=== PATIENT | female | born 1980 | race Caucasian/White ===

== ENCOUNTER → 2016-04-11 | Outpatient (REF) | payer OTHER ==
[~2016-04-11] MED LIST: /GLYB5TA PO; ASPI81TA85 PO; Aspirin Chewable PO; BABY81CH; CIPR500T89 PO; CLIN300C2 PO; GLUC1000; GLYB5TA PO; IBUP600T; INVO100T PO; KLON1TAB PO; KLON2TAB PO; LANTUS SOLOSTAR SC; LEVA750T; LISI2.5T; Lantus Insulin SC; NOVOLOG SC; No Historical Meds; ROSU10TA; VALI2TAB PO; YASMIN PO; [UNRECOGNIZED DRUG - REMARK]
== END | disposition home or self-care (01) ==
LOC: M SFHCWAGY 12:12
PROVIDERS: ATTEND Nurse Practitioner Family
DX: Z12.4 Encounter for screening for malignant neoplasm of cervix (principal); Z11.3 Encounter for screening for infections with a predominantly sexual mode of transmission
CPT/HCPCS: 87491; 87591; G0123

== ENCOUNTER → 2016-07-18 | Outpatient (CLI) | payer OTHER ==
--- NOTE | 2016-07-18 15:55 | REP ---
LEFT KNEE, FIVE VIEWS: HISTORY: Pain. There is no acute fracture or dislocation. The joint spaces are normal in appearance. IMPRESSION: There is no acute fracture or dislocation. Signed by Pranav Mason MD 07/18/2016 04:24 P
== END ==
LOC: M WUC 11:47
PROVIDERS: ATTEND Physician Assistant
DX: M25.562 Pain in left knee (principal)

== ENCOUNTER → 2017-01-02 | Outpatient (CLI) | payer OTHER ==
[~2017-01-02] MED LIST changes: +CIPR-249 PO; -CIPR500T89 PO
--- NOTE | 2017-01-02 13:29 | REP ---
Right wrist four views : There is no fracture or dislocation. Mineralization and joint spaces are normal. There are no calcifications or foreign bodies. Impression: Negative right wrist . Signed by Gus Padron MD 01/02/2017 01:21 P
== END ==
LOC: M RAD 12:23
PROVIDERS: ATTEND Physician Assistant Medical
DX: M25.531 Pain in right wrist (principal)

== ENCOUNTER 2017-02-06 18:58 | Emergency (ER) | payer OTHER ==
[~2017-02-06] VITALS: Ht 160 cm; Wt 104.5 kg
[2017-02-06 20:12] LABS: CONTROL LINE UCG INT CTR LINE PRESENT
[2017-02-06 21:06] LABS: BASO % 0.2 % (0.0-1.0); EOS # 0.1 10^3/uL (0.0-0.50); IMMATURE GRANULOCYTE % 0.3 % (0-0); LYMPH # 2.6 10^3/uL (1.5-4.5); LYMPH % 20.8 % (24.0-44.0); MEAN CORPUSCULAR HEMOGLOBIN 30.4 pg (27.0-33.0); MEAN CORPUSCULAR HGB CONC 33.1 g/dl (32.0-36.5); MEAN CORPUSCULAR VOLUME 91.9 fl (80.0-96.0); MONO # 0.9 10^3/uL (0.0-0.8); MONO % 7.2 % (0.0-5.0); NEUTROPHILS # 8.7 10^3/uL (1.8-7.7); NEUTROPHILS % 70.5 % (36.0-66.0); PLATELET COUNT, AUTOMATED 283 10^3/uL (150-450); RED CELL DISTRIBUTION WIDTH 12.4 % (11.5-14.5); WHITE BLOOD COUNT 12.4 10^3/uL (4.0-10.0)
--- NOTE | 2017-02-06 21:36 | REP ---
Clinical: Left flank pain. Comparison: 08/06/2013. Findings: Evaluation of the urinary tract system demonstrates normal bilateral kidneys, ureters and bladder. There is no perinephric stranding, hydroureteronephrosis, intrarenal or obstructing ureteral calculi identified. Liver, spleen, pancreas, gallbladder, and bilateral adrenal glands are normal for noncontrast evaluation. The enteric system is without obstruction or acute inflammatory process. Normal terminal ileum and appendix are identified in the right lower quadrant. Pelvis demonstrates normal bladder and age-appropriate uterus/adnexa. No pelvic fluid or ascites. No adenopathy. No solitary mass lesion identified. No free air. Abdominal aorta and vasculature appears normal and without aneurysm. Surrounding musculoskeletal structures are intact. Lung bases are well aerated and clear. Impression: 1. Normal appearance to the urinary tract system without evidence for acute pathology. 2. No acute abdominopelvic pathology appreciated. 3. No ascites, adenopathy, or mass lesion. Signed by Jean Diaz MD 02/06/2017 09:27 P
[2017-02-06 21:40] LABS: ANION GAP 6 MEQ/L (8-16); BLOOD UREA NITROGEN 10 MG/DL (7-18); CALCIUM LEVEL 9.2 MG/DL (8.5-10.1); CARBON DIOXIDE LEVEL 28 MEQ/L (21-32); CHLORIDE LEVEL 105 MEQ/L (98-107); CREATININE FOR GFR 0.76 MG/DL (0.55-1.02); GLOMERULAR FILTRATION RATE > 60.0 (>60); GLUCOSE, FASTING 234 MG/DL (70-105); POTASSIUM SERUM 4.3 MEQ/L (3.5-5.1); SODIUM LEVEL 139 MEQ/L (136-145)
[2017-02-06 21:56] VITALS: BP 131/80
[2017-02-06] MEDS ORDERED: MACR100C43 PO (21:59)
[2017-02-06] MEDS ORDERED: PYRI1TAB5 PO (21:59)
[2017-02-06] MEDS ORDERED: NITROFURANTOIN (MACROBID) 100 MG CAP PO ONE (22:00)
[2017-02-06] MEDS ORDERED: PHENAZOPYRIDINE 100 MG TAB PO ONE (22:00)
== END 2017-02-06 22:11 | disposition home or self-care (01) ==
LOC: M ED 18:58
DX: N30.01 Acute cystitis with hematuria (principal); E11.9 Type 2 diabetes mellitus without complications; I10 Essential (primary) hypertension; F41.9 Anxiety disorder, unspecified; F32.9 Major depressive disorder, single episode, unspecified; Z91.013 Allergy to seafood; Z79.82 Long term (current) use of aspirin; Z79.899 Other long term (current) drug therapy

== ENCOUNTER 2017-02-09 14:02 | Emergency (ER) | payer OTHER ==
[~2017-02-09] VITALS: Ht 157.5 cm; Wt 103.6 kg
[~2017-02-09 14:02] MED LIST changes: +MACR100C43 PO; +PYRI1TAB5 PO
[2017-02-09 14:03] VITALS: BP 128/80
[2017-02-09] MEDS ORDERED: TOUJ1.2I SQ (14:31)
[2017-02-09] MEDS ORDERED: ALPR0.25 (14:31)
== END 2017-02-09 17:50 | disposition home or self-care (01) ==
LOC: M ED 14:02
DX: N39.0 Urinary tract infection, site not specified (principal); E11.9 Type 2 diabetes mellitus without complications; E03.9 Hypothyroidism, unspecified; E78.00 Pure hypercholesterolemia, unspecified; F41.9 Anxiety disorder, unspecified; F33.9 Major depressive disorder, recurrent, unspecified; Z79.4 Long term (current) use of insulin; Z79.82 Long term (current) use of aspirin; Z79.899 Other long term (current) drug therapy; Z79.2 Long term (current) use of antibiotics; Z91.013 Allergy to seafood

== ENCOUNTER → 2017-03-01 | Outpatient (REF) | payer OTHER ==
[~2017-03-01] MED LIST changes: +ALPR0.25; +TOUJ1.2I SQ
== END ==
LOC: M SFHCWAGY 15:46
PROVIDERS: ATTEND Nurse Practitioner Women's Health
DX: Z11.3 Encounter for screening for infections with a predominantly sexual mode of transmission (principal)

== ENCOUNTER → 2017-03-17 | Outpatient (CLI) | payer OTHER ==
[2017-03-17 20:56] LABS: BASO % 0.2 % (0.0-1.0); EOS # 0.1 10^3/uL (0.0-0.50); EOS % 1.1 % (0.0-3.0); IMMATURE GRANULOCYTE % 0.3 % (0-0); LYMPH # 1.9 10^3/uL (1.5-4.5); LYMPH % 21.6 % (24.0-44.0); MEAN CORPUSCULAR HEMOGLOBIN 30.3 pg (27.0-33.0); MEAN CORPUSCULAR HGB CONC 32.3 g/dl (32.0-36.5); MONO # 0.7 10^3/uL (0.0-0.8); MONO % 8.4 % (0.0-5.0); NEUTROPHILS % 68.4 % (36.0-66.0); PLATELET COUNT, AUTOMATED 282 10^3/uL (150-450); RED CELL DISTRIBUTION WIDTH 12.7 % (11.5-14.5); WHITE BLOOD COUNT 8.8 10^3/uL (4.0-10.0)
[2017-03-17 21:10] LABS: ESTIMATED AVERAGE GLUCOSE 154 MG/DL (60-110)
[2017-03-17 21:17] LABS: ALBUMIN 3.8 GM/DL (3.2-5.2); ALBUMIN/GLOBULIN RATIO 1.12 (1.00-1.93); ALKALINE PHOSPHATASE 85 U/L (45-117); ALT/SGPT 21 U/L (12-78); ANION GAP 8 MEQ/L (8-16); AST/SGOT 15 U/L (7-37); BILIRUBIN,TOTAL 0.4 MG/DL (0.2-1.0); BLOOD UREA NITROGEN 9 MG/DL (7-18); CALCIUM LEVEL 8.7 MG/DL (8.5-10.1); CARBON DIOXIDE LEVEL 27 MEQ/L (21-32); CHLORIDE LEVEL 107 MEQ/L (98-107); CHOLESTEROL LEVEL 232 MG/DL (<200); CREATININE FOR GFR 0.64 MG/DL (0.55-1.02); FREE T4 1.02 NG/DL (0.76-1.46); GLOMERULAR FILTRATION RATE > 60.0 (>60); GLUCOSE, FASTING 142 MG/DL (70-105); POTASSIUM SERUM 4.5 MEQ/L (3.5-5.1); SODIUM LEVEL 142 MEQ/L (136-145); TOTAL PROTEIN 7.2 GM/DL (6.4-8.2); TRIGLYCERIDES LEVEL 150 MG/DL (<150)
== END ==
LOC: M WUC 10:58
DX: E61.1 Iron deficiency (principal); E11.9 Type 2 diabetes mellitus without complications; E55.9 Vitamin D deficiency, unspecified; R00.2 Palpitations; Z13.220 Encounter for screening for lipoid disorders
CPT/HCPCS: 83540

== ENCOUNTER 2017-09-06 20:20 | Emergency (ER) | payer OTHER ==
[2017-09-06] MEDS: ADACEL/BOOSTRIX VACCINE (DIPHTH/PERTUSS/ACELL/TETANUS)0.5ML SYR (90715) IM (22:30)
[2017-09-06] MEDS: EXPOSURE KIT-ADULT 7 DAY SUPPLY PO (22:30)
[2017-09-06 22:50] LABS: BASO # 0.1 10^3/uL (0.0-0.2); BASO % 0.4 % (0.0-1.0); EOS % 0.3 % (0.0-3.0); HEMATOCRIT 43.4 % (36.0-47.0); HEMOGLOBIN 14.6 g/dl (12.0-15.5); IMMATURE GRANULOCYTE % 0.5 % (0-3.0); LYMPH # 2.9 10^3/uL (1.5-4.5); MEAN CORPUSCULAR HEMOGLOBIN 29.9 pg (27.0-33.0); MEAN CORPUSCULAR HGB CONC 33.6 g/dl (32.0-36.5); MEAN CORPUSCULAR VOLUME 88.9 fl (80.0-96.0); MONO # 1.2 10^3/uL (0.0-0.8); MONO % 10.2 % (0.0-5.0); NEUTROPHILS # 7.3 10^3/uL (1.8-7.7); NEUTROPHILS % 63.6 % (36.0-66.0); PLATELET COUNT, AUTOMATED 341 10^3/uL (150-450); RED BLOOD COUNT 4.88 10^6/uL (4.00-5.40); RED CELL DISTRIBUTION WIDTH 12.9 % (11.5-14.5); WHITE BLOOD COUNT 11.5 10^3/uL (4.0-10.0)
[2017-09-06 23:03] LABS: CONTROL LINE HCG INT CTR LINE PRESENT; HCG, SERUM QUALITATIVE NEGATIVE (NEGATIVE)
[2017-09-06 23:09] LABS: ALBUMIN/GLOBULIN RATIO 0.98 (1.00-1.93); ALKALINE PHOSPHATASE 113 U/L (45-117); ALT/SGPT 21 U/L (12-78); ANION GAP 11 MEQ/L (8-16); AST/SGOT 14 U/L (7-37); BILIRUBIN,TOTAL 0.2 MG/DL (0.2-1.0); BLOOD UREA NITROGEN 13 MG/DL (7-18); CALCIUM LEVEL 8.8 MG/DL (8.5-10.1); CARBON DIOXIDE LEVEL 24 MEQ/L (21-32); CHLORIDE LEVEL 111 MEQ/L (98-107); CREATININE FOR GFR 1.03 MG/DL (0.55-1.30); GLOMERULAR FILTRATION RATE > 60.0 (>60); GLUCOSE, FASTING 204 MG/DL (70-100); POTASSIUM SERUM 4.2 MEQ/L (3.5-5.1); SODIUM LEVEL 146 MEQ/L (136-145); TOTAL PROTEIN 8.1 GM/DL (6.4-8.2)
[2017-09-06 23:18] LABS: CONTROL LINE INT CTR LINE PRESENT; HIV SCRN NEGATIVE (NEGATIVE); HIV SCRN1 NEGATIVE (NEGATIVE)
[2017-09-06] MEDS: ONDANSETRON 4 MG ORAL DISINTEGRATING TAB (Q0162 PER 1MG) PO (23:30)
[2017-09-07 13:23] LABS: HEPATITIS B SURFACE ANTIBODY NEGATIVE (POSITIVE)
[2017-09-07 13:33] LABS: HEPATITIS B SURFACE ANTIGEN NEGATIVE (NEGATIVE)
[2017-09-07 14:02] LABS: HEPATITIS C VIRUS ABY INDEX 0.1 INDEX (<0.8)
== END 2017-09-06 23:33 | disposition home or self-care (01) ==
LOC: M ED 20:20
DX: Z20.9 Contact with and (suspected) exposure to unspecified communicable disease (principal); Y04.8XXA Assault by other bodily force, initial encounter; Y92.099 Unspecified place in other non-institutional residence as the place of occurrence of the external cause; Y93.89 Activity, other specified; Y99.9 Unspecified external cause status; E11.9 Type 2 diabetes mellitus without complications; K21.9 Gastro-esophageal reflux disease without esophagitis; F41.9 Anxiety disorder, unspecified; F32.9 Major depressive disorder, single episode, unspecified; E78.00 Pure hypercholesterolemia, unspecified; Z72.0 Tobacco use; Z79.82 Long term (current) use of aspirin; Z79.899 Other long term (current) drug therapy; Z91.013 Allergy to seafood
CPT/HCPCS: 90715

== ENCOUNTER → 2017-10-08 | Outpatient (REF) | payer OTHER ==
[2017-10-08 17:17] LABS: TOTAL 25(OH) VITAMIN D 39.9 NG/ML (30.0-100.0)
== END ==
LOC: M LABDRAWP 15:54
DX: E55.9 Vitamin D deficiency, unspecified (principal)

== ENCOUNTER → 2017-10-08 | Outpatient (REF) | payer OTHER ==
[2017-10-08 16:25] LABS: HEPATITIS B SURFACE ANTIGEN NEGATIVE (NEGATIVE)
[2017-10-08 16:54] LABS: HIV 1&2 SCREEN CENTAUR NEGATIVE (NEGATIVE)
[2017-10-08 16:54] LABS: HEPATITIS C VIRUS ABY INDEX 0.3 INDEX (<0.8)
== END ==
LOC: M SFHCPLAZ 13:27
DX: Z23 Encounter for immunization (principal)
CPT/HCPCS: 87340

== ENCOUNTER 2017-10-15 20:39 | Emergency (ER) | payer OTHER ==
[2017-10-15 21:39] LABS: BEDSIDE GLUCOSE 66 MG/DL (70-105)
[2017-10-15] MEDS: DEXTROSE 50% 50 ML SYRINGE IV ×2 (21:48→22:50)
[2017-10-15 22:07] LABS: BASO % 0.3 % (0.0-1.0); EOS # 0.1 10^3/uL (0.0-0.50); EOS % 0.7 % (0.0-3.0); HEMATOCRIT 42.7 % (36.0-47.0); HEMOGLOBIN 13.8 g/dl (12.0-15.5); IMMATURE GRANULOCYTE % 0.6 % (0-3.0); LYMPH # 2.3 10^3/uL (1.5-4.5); LYMPH % 18.8 % (24.0-44.0); MEAN CORPUSCULAR HEMOGLOBIN 29.8 pg (27.0-33.0); MEAN CORPUSCULAR HGB CONC 32.3 g/dl (32.0-36.5); MEAN CORPUSCULAR VOLUME 92.2 fl (80.0-96.0); MONO # 1.1 10^3/uL (0.0-0.8); MONO % 9.1 % (0.0-5.0); NEUTROPHILS # 8.5 10^3/uL (1.8-7.7); NEUTROPHILS % 70.5 % (36.0-66.0); PLATELET COUNT, AUTOMATED 301 10^3/uL (150-450); RED BLOOD COUNT 4.63 10^6/uL (4.00-5.40); RED CELL DISTRIBUTION WIDTH 12.4 % (11.5-14.5)
[2017-10-15 22:27] LABS: ANION GAP 8 MEQ/L (8-16); BLOOD UREA NITROGEN 12 MG/DL (7-18); CALCIUM LEVEL 8.8 MG/DL (8.5-10.1); CARBON DIOXIDE LEVEL 26 MEQ/L (21-32); CHLORIDE LEVEL 107 MEQ/L (98-107); CREATININE FOR GFR 0.74 MG/DL (0.55-1.30); GLOMERULAR FILTRATION RATE > 60.0 (>60); GLUCOSE, FASTING 67 MG/DL (70-100); POTASSIUM SERUM 3.9 MEQ/L (3.5-5.1); SODIUM LEVEL 141 MEQ/L (136-145)
[2017-10-15 22:47] LABS: BEDSIDE GLUCOSE 100 MG/DL (70-105)
[2017-10-15 23:50] LABS: BEDSIDE GLUCOSE 162 MG/DL (70-105)
[2017-10-16 00:51] LABS: BEDSIDE GLUCOSE 155 MG/DL (70-105)
[2017-10-19 14:21] LABS: BEDSIDE GLUCOSE 54 MG/DL (70-105)
== END 2017-10-16 01:01 | disposition home or self-care (01) ==
LOC: M ED 10-16 01:01
DX: E11.649 Type 2 diabetes mellitus with hypoglycemia without coma (principal); F41.9 Anxiety disorder, unspecified; K21.9 Gastro-esophageal reflux disease without esophagitis; E78.9 Disorder of lipoprotein metabolism, unspecified; Z91.013 Allergy to seafood; Z79.899 Other long term (current) drug therapy; Z79.82 Long term (current) use of aspirin; Z79.4 Long term (current) use of insulin
CPT/HCPCS: 80048

== ENCOUNTER → 2017-12-20 | Outpatient (REF) | payer OTHER ==
[2017-12-20 20:40] LABS: CHLAMYDIA DNA AMPLIFICATION NEGATIVE (NEGATIVE); GC DNA AMPLIFICATION NEGATIVE (NEGATIVE)
[2017-12-22 15:28] LABS: HPV HYBRID CAPTURE II Positive (Negative)
== END ==
LOC: M SFHCWAGY 16:08
DX: Z12.4 Encounter for screening for malignant neoplasm of cervix (principal)

== ENCOUNTER → 2018-04-02 | Outpatient (REF) | payer OTHER ==
[~2018-04-02] MED LIST changes: +ALOG25TA PO; -ALPR0.25; +ALPR0.25 PO; +ASPI81CH PO; +ATOR1TAB21 PO; +FLON1SPR; +GLIM1TAB PO; +PANT40TA3 PO; +TOUJ1.2I SC; +TRAM50TA2 PO; +VITA50005; +ZOFR4TAB14 PO
[2018-04-03 11:07] LABS: HEPATITIS B SURFACE ANTIGEN NEGATIVE (NEGATIVE); HEPATITIS C VIRUS ABY INDEX 0.2 INDEX (<0.8); HIV 1&2 SCREEN CENTAUR NEGATIVE (NEGATIVE)
== END ==
LOC: M SFHCPLAZ 12:03
PROVIDERS: ATTEND Internal Medicine Infectious Disease
DX: Z20.6 Contact with and (suspected) exposure to human immunodeficiency virus [HIV] (principal)

== ENCOUNTER 2018-05-31 16:32 | Emergency (ER) | payer OTHER ==
[~2018-05-31] VITALS: Ht 160 cm; Wt 111.7 kg
[2018-05-31] MEDS ORDERED: PANTOPRAZOLE 40MG TAB (PROTONIX) PO ONE (17:45)
[2018-05-31 18:01] LABS: BASO % 0.5 % (0.0-1.0); EOS # 0.1 10^3/uL (0.0-0.50); HEMATOCRIT 40.8 % (36.0-47.0); HEMOGLOBIN 13.5 g/dl (12.0-15.5); LYMPH # 1.7 10^3/uL (1.5-4.5); LYMPH % 27.1 % (24.0-44.0); MEAN CORPUSCULAR HGB CONC 33.1 g/dl (32.0-36.5); MEAN CORPUSCULAR VOLUME 87.7 fl (80.0-96.0); MONO # 0.8 10^3/uL (0.0-0.8); NEUTROPHILS # 3.6 10^3/uL (1.8-7.7); NEUTROPHILS % 58.1 % (36.0-66.0); PLATELET COUNT, AUTOMATED 230 10^3/uL (150-450); RED BLOOD COUNT 4.65 10^6/uL (4.00-5.40); WHITE BLOOD COUNT 6.2 10^3/uL (4.0-10.0)
[2018-05-31 18:19] LABS: ALBUMIN 3.5 GM/DL (3.2-5.2); ALT/SGPT 36 U/L (12-78); BILIRUBIN,DIRECT 0.1 MG/DL (0.0-0.2); BILIRUBIN,TOTAL 0.4 MG/DL (0.2-1.0); BLOOD UREA NITROGEN 6 MG/DL (7-18); CALCIUM LEVEL 8.7 MG/DL (8.5-10.1); CARBON DIOXIDE LEVEL 28 MEQ/L (21-32); CHLORIDE LEVEL 104 MEQ/L (98-107); CREATININE FOR GFR 0.73 MG/DL (0.55-1.30); GLOMERULAR FILTRATION RATE > 60.0 (>60); GLUCOSE, FASTING 278 MG/DL (70-100); LIPASE 90 U/L (73-393); POTASSIUM SERUM 4.1 MEQ/L (3.5-5.1); SODIUM LEVEL 138 MEQ/L (136-145); TOTAL PROTEIN 7.2 GM/DL (6.4-8.2)
[2018-05-31 19:29] VITALS: BP 132/76
[2018-06-02] MEDS ORDERED: ATOR1TAB21 PO (14:30)
[2018-06-02] MEDS ORDERED: BASA100I INJ (14:30)
== END 2018-05-31 19:51 | disposition home or self-care (01) ==
LOC: M ED 16:32
DX: R19.7 Diarrhea, unspecified (principal); E11.9 Type 2 diabetes mellitus without complications; I10 Essential (primary) hypertension; K21.9 Gastro-esophageal reflux disease without esophagitis; Z79.899 Other long term (current) drug therapy; Z79.82 Long term (current) use of aspirin; Z91.013 Allergy to seafood

== ENCOUNTER → 2018-06-14 | Outpatient (REF) | payer OTHER ==
[~2018-06-14] MED LIST changes: +BASA100I INJ
== END ==
LOC: M LAB REF 15:08
PROVIDERS: ATTEND Nurse Practitioner Family
DX: R19.7 Diarrhea, unspecified (principal)

== ENCOUNTER → 2018-06-16 | Outpatient (REF) | payer OTHER | LOC: M LAB REF 13:42 | PROVIDERS: ATTEND Nurse Practitioner Family | DX: A02.0 Salmonella enteritis (principal) ==

== ENCOUNTER → 2018-06-18 | Outpatient (REF) | payer OTHER | LOC: M LAB REF 12:36 | PROVIDERS: ATTEND Nurse Practitioner Family | DX: A02.9 Salmonella infection, unspecified (principal) ==

== ENCOUNTER → 2018-07-09 | Outpatient (CLI) | payer OTHER ==
[~2018-07-09] MED LIST changes: -/GLYB5TA PO; -ASPI81CH PO; +ASPI81CH49 PO; +CRES10TA32; +GLYB-147 PO; +GLYB1TAB29 PO; -GLYB5TA PO; -ROSU10TA
[2018-07-09 13:44] LABS: ALT/SGPT 31 U/L (12-78); BILIRUBIN,TOTAL 0.5 MG/DL (0.2-1.0); BLOOD UREA NITROGEN 8 MG/DL (7-18); CALCIUM LEVEL 8.2 MG/DL (8.5-10.1); CARBON DIOXIDE LEVEL 28 MEQ/L (21-32); CHLORIDE LEVEL 105 MEQ/L (98-107); CREATININE FOR GFR 0.62 MG/DL (0.55-1.30); GLOMERULAR FILTRATION RATE > 60.0 (>60); GLUCOSE, FASTING 175 MG/DL (70-100); POTASSIUM SERUM 4.1 MEQ/L (3.5-5.1); SODIUM LEVEL 139 MEQ/L (136-145)
[2018-07-09 13:45] LABS: ALBUMIN 3.3 GM/DL (3.2-5.2); CHOLESTEROL LEVEL 130 MG/DL (<200); CHOLESTEROL RISK RATIO 2.765 (<5); HDL CHOLESTEROL 47 MG/DL (>40); LDL CHOLESTEROL 55 MG/DL (<100); NON-HDL-C 83 MG/DL; TOTAL PROTEIN 6.7 GM/DL (6.4-8.2); TRIGLYCERIDES LEVEL 141 MG/DL (<150)
[2018-07-09 13:48] LABS: TOTAL 25(OH) VITAMIN D 19.4 NG/ML (30.0-100.0)
[2018-07-09 15:28] LABS: HEMOGLOBIN A1c 8.8 %
== END ==
LOC: M WUC 11:23
PROVIDERS: ATTEND Nurse Practitioner Family
DX: E55.9 Vitamin D deficiency, unspecified (principal); E11.9 Type 2 diabetes mellitus without complications; E78.5 Hyperlipidemia, unspecified

== ENCOUNTER → 2018-12-31 | Outpatient (CLI) | payer OTHER ==
[~2018-12-31] MED LIST changes: -GLIM1TAB PO; +GLIM1TAB2 PO
[2018-12-31 15:56] LABS: HEMOGLOBIN A1c 9.2 %
== END ==
LOC: M WUC 11:36
PROVIDERS: ATTEND Physician Assistant Medical
DX: E11.9 Type 2 diabetes mellitus without complications (principal)

== ENCOUNTER → 2019-05-08 | Outpatient (REF) | payer OTHER ==
[~2019-05-08] MED LIST changes: -GLIM1TAB2 PO; +GLIM1TAB4 PO
[2019-05-08 13:01] LABS: MALB URINE SIEMENS 15.4 MG/L; MAU/CREAT RATIO 12.9 MCG/MG (0.0-30.0)
[2019-05-08 13:08] LABS: HEMOGLOBIN A1c 9.4 %
== END ==
LOC: M SFHCPLAZ 08:56
PROVIDERS: ATTEND Physician Assistant Medical
DX: Z79.4 Long term (current) use of insulin (principal)

== ENCOUNTER → 2019-08-18 | Outpatient (REF) | payer OTHER | LOC: M LAB 19:51 | PROVIDERS: ATTEND Physician Assistant | DX: R10.9 Unspecified abdominal pain (principal) ==

== ENCOUNTER → 2019-09-03 | Outpatient (REF) | payer OTHER ==
[2019-09-03 17:26] LABS: HEMATOCRIT 45.9 % (36.0-47.0); HEMOGLOBIN 14.6 g/dl (12.0-15.5); MEAN CORPUSCULAR HEMOGLOBIN 28.1 pg (27.0-33.0); MEAN CORPUSCULAR HGB CONC 31.8 g/dl (32.0-36.5); MEAN CORPUSCULAR VOLUME 88.3 fl (80.0-96.0); PLATELET COUNT, AUTOMATED 258 10^3/uL (150-450); WHITE BLOOD COUNT 8.5 10^3/uL (4.0-10.0)
== END ==
LOC: M PLALAB 14:59
PROVIDERS: ATTEND Nurse Practitioner Family
DX: N92.1 Excessive and frequent menstruation with irregular cycle (principal)

== ENCOUNTER 2020-02-23 16:41 | Emergency (ER) | payer OTHER ==
[~2020-02-23] VITALS: Ht 160 cm; Wt 116.0 kg
[~2020-02-23 16:41] MED LIST changes: -ASPI81TA85 PO; +ASPI81TA86 PO; +PANT40TA29 PO; -PANT40TA3 PO
[2020-02-23] MEDS ORDERED: ADME100I (16:55)
[2020-02-23 17:42] VITALS: BP 153/77
[2020-02-23] MEDS ORDERED: [UNRECOGNIZED DRUG - CODE] TOP (18:31)
[2020-02-23] MEDS ORDERED: BENA25CA4 PO (18:31)
== END 2020-02-23 18:30 | disposition home or self-care (01) ==
LOC: M ED 16:41
DX: S40.262A Insect bite (nonvenomous) of left shoulder, initial encounter (principal); S80.262A Insect bite (nonvenomous), left knee, initial encounter; W57.XXXA Bitten or stung by nonvenomous insect and other nonvenomous arthropods, initial encounter; Y92.89 Other specified places as the place of occurrence of the external cause; R03.0 Elevated blood-pressure reading, without diagnosis of hypertension; Z91.013 Allergy to seafood; Z79.899 Other long term (current) drug therapy; Z79.82 Long term (current) use of aspirin; Z79.4 Long term (current) use of insulin

== ENCOUNTER → 2020-04-03 | Outpatient (CLI) | payer OTHER ==
[~2020-04-03] MED LIST changes: +ADME100I; +BENA25CA4 PO; +[UNRECOGNIZED DRUG - CODE] TOP
[2020-04-03 15:41] LABS: BLOOD UREA NITROGEN 12 MG/DL (7-18); CALCIUM LEVEL 9.4 MG/DL (8.5-10.1); CARBON DIOXIDE LEVEL 27 MEQ/L (21-32); CHLORIDE LEVEL 104 MEQ/L (98-107); CREATININE FOR GFR 0.75 MG/DL (0.55-1.30); GLOMERULAR FILTRATION RATE > 60.0 (>60); GLUCOSE, FASTING 203 MG/DL (70-100); POTASSIUM SERUM 4.3 MEQ/L (3.5-5.1); SODIUM LEVEL 137 MEQ/L (136-145)
== END ==
LOC: M LAB 14:46
PROVIDERS: ATTEND Family Medicine
DX: E11.9 Type 2 diabetes mellitus without complications (principal)

== ENCOUNTER → 2020-05-11 | Outpatient (REF) ==
[~2020-05-11] MED LIST changes: +METF-838; +ONDA4TAB6 PO
== END ==
LOC: M LABSMTC 09:37
PROVIDERS: ATTEND Pediatrics
DX: Z11.52 Encounter for screening for COVID-19 (principal)

== ENCOUNTER 2020-05-13 14:40 | Emergency (ER) | payer OTHER ==
[~2020-05-13] VITALS: Ht 160 cm; Wt 118.9 kg
[2020-05-13 14:40] VITALS: BP 162/86
[~2020-05-13 14:40] MED LIST changes: -METF-838; -ONDA4TAB6 PO
--- OUTSIDE RECORDS SUMMARY | 2020-05-13 14:47 | CCD ---
Author Author [facility] Syst ems Organization [facility] ems Address Unknown Phone Unavailable Care Team Providers Care Fire Engine Operator Name Role Phone Sumaya Jeff Unavailable PROBLEMS Type Condition ICD9-CM Code IWM23-NO Code Onset Dates Condition S tatus SNOMED Code Notes Problem [facility] current use of insulin Z79.4 Active 439881565 Problem Type 2 diabetes mellitus without complications E11 .9 Active 698715570 Problem Prolonged menstrual cycle N92.1 Active 349580 003 Problem Irregular menstrual cycle N92.6 Active 676656 07 Problem Anxiety F41.9 Active 19637331 Problem Abnormal uterine bleeding N93.9 Active 240578 96238651 Problem HIV exposure Z20.6 Active 333250718 Problem Cervical high risk HPV (human papillomavirus) test positiv e R87.810 Active 854295318 Problem Gastroesophageal reflux disease without esophagitis K21.9 Active 300871767 Problem Mixed hyperlipidemia E78.2 Active 234552865 Problem Gastroesophageal reflux disease, esophagitis pre sence not specified K21.9 Active 230186059 Problem Post-traumatic osteoarthritis of left knee M17.32 Active 899388071 Problem Hx of abnormal cervical Pap smear Z87.42 Active 174345764 ALLERGIES Allergen (clinical drug ingredient) Drug/Non Drug Allergy do cumented on EMR Reaction Allergy Type Onset Date Status shrimp Anaphylaxis Non Drug Allergy Active floride Vomiting Non Drug Allergy Active metformin Metformin HCl([facility] Code:[address]-00) Diarrhea Drug Maged rgy Active ENCOUNTERS from 1981 to 2020-04-14 Encounter Location Date Provider Diagnosis [address] [address] Mar, Sumaya Jeff Anxiety F41.9 IMMUNIZATIONS Vaccine Route Administration Date Status TDAP 0.5mL (Boostrix) Unknown September 06, 2017 Administer ed Hepatitis B Adult 1.0mL (Engerix-B) IM Intramuscular Apr 02 9 Administered Hepatitis B Adult 1.0mL (Engerix-B) IM Intramuscular October 08 18 Administered Hepatitis B Adult 1.0mL (Engerix-B) IM Intramuscular September 13 18 Administered SOCIAL HISTORY Tobacco Use: Social History Observation Description Date Details (start date - stop date) Never Smoker Sex Assigned At : Social History Observation Description Sex Assigned At Unknown Education: Question Answer Notes Level of Education: Finished High School Audit Question Answer Notes Total Score: 1 Interpretation: Alcohol Education Scientology: Question Answer Notes Scientology 08 Sikh Sexual Hx: Question Answer Notes Had sex in the last 12 months (vaginal, oral, or anal)? Yes LMP: end of 11/2017 Have you ever had an STD? No with Men only Use protection? No Drug and Alcohol Question Answer Notes Total Score: 0 Interpretation: No problems reported Alcohol Screening: Question Answer Notes Did you have a drink containing alcohol in the past year? Ye s Points 2 Interpretation Negative How often did you have six or more drinks on one occas ion in the past year? Never (0 points) How many drinks did you have on a typica l day when you were drinking in the past year? 1 or 2 (0 points) How often did you have a drink containing alcohol in t he past year? Two to four times a month (2 points) BMI Care Goal Follow-Up Question Answer Notes Above Normal BMI Follow-Up Giving encouragement to exercise Tobacco Use: Question Answer Notes Are you a: never smoker REASON FOR REFERRAL No Information VITAL SIGNS No information MEDICATIONS Medication SIG (Take, Route, Frequency, Duration) Notes Start Da te End Date Status Tylenol PM 1 tab Oral for 14 days Ac tive Admelog 100 UNIT/ML as directed Dx E11.9 MDD 40 Units Subcutaneous Twice daily per sliding scale Dec, Active Test Strips - as directed four times daily; E11.9, Z79.4 0 3 Feb, 2020 Active Tri-Sprintec 0.18/0.215/0.25 MG-35 MCG 1 tablet Orally Once a day for 28 day(s) Sep, Active Aspir-81 81 MG 1 tablet Orally Once a day/states chewable kind Active BD Pen Needle Dary U/F 32G X 4 MM as directed DX: E11. 9 Daily with basaglar for 90 day(s) Jun, Active Alogliptin Benzoate 25 MG 1 tablet Orally Once a day for 90 days Active Basaglar KwikPen 100 UNIT/ML inject 80 units under the skin once daily Subcutaneous before bedtime Acti ve BD Insulin Syr Ultrafine II 31G X 5/16" 0.5 ML 1 syringe subcuta neously bid Dec, Active Alprazolam 0.5 MG 1 tablet Orally Twice a day for 30 days Active Pantoprazole Sodium 40 MG 1 tablet Orally Daily Active Lancets - as directed four times daily; Dx E11.9, Z79.4 0 3 Feb, 2020 Active Atorvastatin Calcium 20 MG take one tablet by mouth ev palmer day Oral before bedtime for 90 day(s) Active Glucometer as directed Dx E11.9 Feb, Ac tive PROCEDURES No Information RESULTS No Results REASON FOR VISIT refill Alprazolam MEDICAL (GENERAL) HISTORY Type Description Date Medical History DM2 Medical History Anxiety Medical History Possible PCOS - labs did not support Medical History Facial hirsutism Medical History Obesity Medical History History of abnormal pap; LSIL/+HPV - Aleida Saldana Medical History History of C. diff Surgical History I&D right vaginal cyst x 3 Surgical History colposcopy with wen 01/28/18 Hospitalization History No Hospitalization history informati on Goals Section No Information Health Concerns No Information MEDICAL EQUIPMENT No Information MENTAL STATUS No Information FUNCTIONAL STATUS No Information ASSESSMENTS Encounter Date Diagnosis Assessment Notes Treatment Notes Treatm ent Clinical Notes Mar, Anxiety (ICD-10 - F41.9) PLAN OF TREATMENT Medication Medication Name Sig Start Date Stop Date Aspir-81 81 MG 1 tablet Orally Once a day/states chewable kind Lancets - as directed four times daily; Dx E11.9, Z79.4 Feb, Tri-Sprintec 0.18/0.215/0.25 MG-35 MCG 1 tablet Orally Once a day for 28 day(s) Sep, Pantoprazole Sodium 40 MG 1 tablet Orally Daily Test Strips - as directed four times daily; E11.9, Z79.4 2019 Glucometer as directed Dx E11.9 Feb, BD Pen Needle Dary U/F 32G X 4 MM as directed DX: E11. 9 Daily with basaglar for 90 day(s) Jun, Alogliptin Benzoate 25 MG 1 tablet Orally Once a day for 90 days Basaglar KwikPen 100 UNIT/ML inject 80 units under the skin once daily Subcutaneous before bedtime Admelog 100 UNIT/ML as directed Dx E11.9 MDD 40 Units Subcutaneous Twice daily per sliding scale Dec, Alprazolam 0.5 MG 1 tablet Orally Twice a day for 30 days Atorvastatin Calcium 20 MG take one tablet by mouth ev palmer day Oral before bedtime for 90 day(s) Next Appt Details Provider Name:Sumaya Jeff, 2020-04-23 08:00:00 AM, [address] [place] [address], [phone], Insurance Providers Payer Name Payer Address Payer Phone Insured Name Patient Relati onship to Insured Coverage Start Date Coverage End Date [facility]AN [facility] [address] [facility] [phone] WEN JOHNSON self
--- OUTSIDE RECORDS SUMMARY | 2020-05-13 14:47 | CCD ---
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 Active conf irmed 468687868 Problem Type 2 diabetes mellitus without complications E11 .9 Active confirmed 682923806 Problem Prolonged menstrual cycle N92.1 Active confirmed 465970427 Problem Irregular menstrual cycle N92.6 Active confirmed 69189248 Problem Anxiety F41.9 Active confirmed 18108295 Problem Abnormal uterine bleeding N93.9 Active confirmed 10272760774278 Problem HIV exposure Z20.6 Active confirmed 0873078 02 Problem Cervical high risk HPV (human papillomavirus) test positiv e R87.810 Active confirmed 441351071 Problem Gastroesophageal reflux disease without esophagitis K21.9 Active confirmed 107360818 Problem Mixed hyperlipidemia E78.2 Active confirmed 312841068 Problem Gastroesophageal reflux disease, esophagitis pre sence not specified K21.9 Active confirmed 940598169 Problem Post-traumatic osteoarthritis of left knee M17.32 Active confirmed 683999451 Problem Hx of abnormal cervical Pap smear Z87.42 Active confirmed 569593185 ALLERGIES Allergen (clinical drug ingredient) Drug/Non Drug Allergy do cumented on EMR Reaction Allergy Type Onset Date Status shrimp Anaphylaxis Non Drug Allergy Active floride Vomiting Non Drug Allergy Active metformin Metformin HCl([facility] Code:[address]-75) Diarrhea Drug Maged rgy Active ENCOUNTERS from 1981 to 2020-04-24 Encounter Location Date Provider Diagnosis [address] [address] Apr, Sumaya Jeff IMMUNIZATIONS Vaccine Route Administration Date Status TDAP [...] Notes Total Score: 1 Interpretation: Alcohol Education Tenriism: Question Answer Notes Tenriism 08 Restorationist Sexual Hx: Question Answer Notes Had sex [...] directed four times daily; E11.9, Z79.4 0 Feb, Active Tri-Sprintec 0.18/0.215/0.25 MG-35 MCG 1 tablet [...] four times daily; Dx E11.9, Z79.4 0 Feb, Active Atorvastatin Calcium 20 MG take one tablet by mouth ev palmer day Oral before bedtime for 90 day(s) Active Glucometer as directed Dx E11.9 Feb, Ac tive PROCEDURES No Information RESULTS No Results REASON FOR VISIT Warning No-Show Letter MEDICAL (GENERAL) HISTORY Type Description Date Medical [...] No Information FUNCTIONAL STATUS No Information ASSESSMENTS No Information PLAN OF TREATMENT Medication Medication Name Sig [...] 90 day(s) Next Appt Details Provider Name:Sumaya Jamil Jasmincharisma, 2020-04-27 01:30:00 PM, [address] [place] [address], [phone], Insurance Providers Payer Name Payer Address Payer Phone Insured Name Patient Relati onship to Insured Coverage Start Date Coverage End Date [facility] PLAN [facility] [address] [facility] [phone] WEN JOHNSON self
[2020-05-13] MEDS ORDERED: METF-838 (14:48)
--- OUTSIDE RECORDS SUMMARY | 2020-05-13 14:48 | CCD ---
Author Author [facility] Syst ems Organization [facility] ems Address Unknown Phone Unavailable Care Team Providers Care Parole Board Member Name Role Phone Sumaya Jeff Unavailable PROBLEMS Type Condition ICD9-CM Code [id number] Code Onset Dates Condition S tatus SNOMED Code Notes Problem care home current use of insulin Z79.4 Active 704405918 Problem Type 2 diabetes mellitus without complications E11 .9 Active 783389647 Problem Prolonged menstrual cycle N92.1 Active 316686 003 Problem Irregular menstrual cycle N92.6 Active 074886 07 Problem Anxiety F41.9 Active 17855251 Problem Abnormal uterine bleeding N93.9 Active 256728 60050183 Problem HIV exposure Z20.6 Active 389406070 Problem Cervical high risk HPV (human papillomavirus) test positiv e R87.810 Active 601646998 Problem Gastroesophageal reflux disease without esophagitis K21.9 Active 975948440 Problem Mixed hyperlipidemia E78.2 Active 124806228 Problem Gastroesophageal reflux disease, esophagitis pre sence not specified K21.9 Active 572906348 Problem Post-traumatic osteoarthritis of left knee M17.32 Active 048216893 Problem Hx of abnormal cervical Pap smear Z87.42 Active 036950325 ALLERGIES Allergen (clinical drug ingredient) Drug/Non Drug Allergy do cumented on EMR Reaction Allergy Type Onset Date Status shrimp Anaphylaxis Non Drug Allergy Active floride Vomiting Non Drug Allergy Active metformin Metformin HCl([facility] Code:[address]-19) Diarrhea Drug Maged rgy Active ENCOUNTERS from 1981 to 2020-02-24 Encounter Location Date Provider Diagnosis [facility] [place] [address] [place] [address] Feb, Sumaya Jeff IMMUNIZATIONS Vaccine Route Administration Date [...] Notes Total Score: 1 Interpretation: Alcohol Education Taoism: Question Answer Notes Taoism 08 Sikh Sexual Hx: Question Answer Notes [...] Orally Once a day/states chewable kind Active Pantoprazole Sodium 40 MG 1 tablet Orally Daily Active Alogliptin Benzoate 25 MG 1 tablet Orally Once a day for 90 days Active Alprazolam 0.5 MG 1 tablet Orally Twice a day for 30 days Active Glucometer as directed Dx E11.9 Feb, Ac tive Basaglar KwikPen 100 UNIT/ML inject 80 units under the skin once daily Subcutaneous before bedtime Acti ve BD Insulin Syr Ultrafine II 31G X 5/16" 0.5 ML 1 syringe subcuta neously bid Dec, Active Lancets - as directed four times daily; Dx E11.9, Z79.4 0 3 Feb, 2020 Active Atorvastatin Calcium 20 MG take one tablet by mouth ev palmer day Oral before bedtime Active BD Pen Needle Dary U/F 32G X 4 MM as directed DX: E11. 9 Daily with basaglar for 90 day(s) Jun, Active PROCEDURES No Information RESULTS No Results REASON FOR VISIT ED Visit [facility] D[facility]C 02/22; Rash MEDICAL (GENERAL) HISTORY Type Description Date Medical [...] Once a day for 28 day(s) Sep, Test Strips - as directed four times daily; E11.9, Z79.4 2019 Glucometer as directed Dx E11.9 Feb, Pantoprazole Sodium 40 MG 1 tablet Orally Daily Atorvastatin Calcium 20 MG take one tablet by mouth ev palmer day Oral before bedtime Admelog 100 UNIT/ML as directed Dx E11.9 MDD 40 Units Subcutaneous Twice daily per sliding scale Dec, Alogliptin Benzoate 25 MG 1 tablet Orally Once a day for 90 days Basaglar KwikPen 100 UNIT/ML inject 80 units under the skin once daily Subcutaneous before bedtime Next Appt Details Provider Name:Sumaya Jeff, 2020-04-05 02:15:00 PM, [address] [place], [phone], Insurance Providers Payer Name Payer Address Payer Phone Insured Name Patient Relati onship to Insured Coverage Start Date Coverage End Date [facility] [address] [facility] [phone] WEN JOHNSON self
--- OUTSIDE RECORDS SUMMARY | 2020-05-13 14:48 | CCD ---
Author Author [facility] Syst ems Organization [facility] ems Address Unknown Phone Unavailable Care Team Providers Care International Accounting Manager Name Role Phone Sumaya Jeff Unavailable PROBLEMS Type Condition ICD9-CM Code BZD34-HS Code Onset Dates Condition S tatus SNOMED Code Notes Problem care home current use of insulin Z79.4 Active 385695719 Problem Type 2 diabetes mellitus without complications E11 .9 Active 826764963 Problem Prolonged menstrual cycle N92.1 Active 219082 003 Problem Irregular menstrual cycle N92.6 Active 816426 07 Problem Anxiety F41.9 Active 44004997 Problem Abnormal uterine bleeding N93.9 Active 194684 98065311 Problem HIV exposure Z20.6 Active 034330499 Problem Cervical high risk HPV (human papillomavirus) test positiv e R87.810 Active 865930253 Problem Gastroesophageal reflux disease without esophagitis K21.9 Active 367517147 Problem Mixed hyperlipidemia E78.2 Active 902312170 Problem Gastroesophageal reflux disease, esophagitis pre sence not specified K21.9 Active 686506580 Problem Post-traumatic osteoarthritis of left knee M17.32 Active 748505165 Problem Hx of abnormal cervical Pap smear Z87.42 Active 760390362 ALLERGIES Allergen (clinical drug ingredient) Drug/Non Drug Allergy do cumented on EMR Reaction Allergy Type Onset Date Status shrimp Anaphylaxis Non Drug Allergy Active floride Vomiting Non Drug Allergy Active metformin Metformin HCl([facility] Code:[address]-54) Diarrhea Drug Maged rgy Active ENCOUNTERS from 1981 to 2020-03-25 Encounter Location Date Provider Diagnosis [address] [address] Mar, Sumaya Jeff Type 2 diabetes mellitus without complic ations E11.9 IMMUNIZATIONS Vaccine Route Administration Date Status TDAP [...] Notes Total Score: 1 Interpretation: Alcohol Education Adventist: Question Answer Notes Adventist 08 Buddhism Sexual Hx: Question Answer Notes Had sex [...] Notes Start Da te End Date Status Alogliptin Benzoate 25 MG 1 tablet Orally Once a day for 90 days Active Admelog 100 UNIT/ML as directed Dx E11.9 MDD 40 Units Subcutaneous Twice daily per sliding scale Dec, Active Test Strips - as directed four times daily; E11.9, Z79.4 0 3 Feb, 2020 Active Tri-Sprintec 0.18/0.215/0.25 MG-35 MCG 1 tablet Orally Once a day for 28 day(s) Sep, Active Aspir-81 81 MG 1 tablet Orally Once a day/states chewable kind Active BD Insulin Syr Ultrafine II 31G X 5/16" 0.5 ML 1 syringe subcuta neously bid Dec, Active Pantoprazole Sodium 40 MG 1 tablet Orally Daily Active Basaglar KwikPen 100 UNIT/ML inject 80 units under the skin once daily Subcutaneous before bedtime Acti ve BD Pen Needle Dary U/F 32G X 4 MM as directed DX: E11. 9 Daily with basaglar for 90 day(s) Jun, Active Tylenol PM 1 tab Oral for 14 days Ac tive Glucometer as directed Dx E11.9 Feb, Ac tive Lancets - as directed four times daily; Dx E11.9, Z79.4 0 Feb, Active Atorvastatin Calcium 20 MG take one tablet by mouth ev palmer day Oral before bedtime for 90 day(s) Active Alprazolam 0.5 MG 1 tablet Orally Twice a day for 30 days Active PROCEDURES No Information RESULTS No Results REASON FOR VISIT refills MEDICAL (GENERAL) HISTORY Type Description Date Medical [...] Treatment Notes Treatm ent Clinical Notes Mar, Type 2 diabetes mellitus without complications ( ICD-10 - E11.9) PLAN OF TREATMENT Medication Medication Name Sig Start Date Stop Date Aspir-81 81 MG 1 tablet Orally Once a day/states chewable kind Lancets - as directed four times daily; Dx E11.9, Z79.4 Feb, Tri-Sprintec 0.18/0.215/0.25 MG-35 MCG 1 tablet Orally Once a day for 28 day(s) Sep, Alprazolam 0.5 MG 1 tablet Orally Twice a day for 30 days Test Strips - as directed four times daily; E11.9, Z79.4 2019 Glucometer as directed Dx E11.9 Feb, Pantoprazole Sodium 40 MG 1 tablet Orally Daily Basaglar KwikPen 100 UNIT/ML inject 80 units under the skin once daily Subcutaneous before bedtime Admelog 100 UNIT/ML as directed Dx E11.9 MDD 40 Units Subcutaneous Twice daily per sliding scale 16 Dec, 2018 Alogliptin Benzoate 25 MG 1 tablet Orally Once a day for 90 days Atorvastatin Calcium 20 MG take one tablet by mouth ev palmer day Oral before bedtime for 90 day(s) Next Appt Details Provider Name:Sumaya Jeff, 2020-04-05 02:15:00 PM, [address] [place] [address], [phone], Insurance Providers Payer Name Payer Address Payer Phone Insured Name Patient Relati onship to Insured Coverage Start Date Coverage End Date [facility] PLAN [facility] [address] [facility] [phone] WEN JOHNSON self
--- OUTSIDE RECORDS SUMMARY | 2020-05-13 14:48 | CCD ---
Author Author [facility] Syst ems Organization [facility] ems Address Unknown Phone Unavailable Care Team Providers Care Instructor Apparel Manufacture Name Role Phone Sumaya Jeff Unavailable PROBLEMS Type Condition ICD9-CM Code LFY05-PM Code Onset Dates Condition S tatus SNOMED Code Notes Problem retirement current use of insulin Z79.4 Active 757194616 Problem Type 2 diabetes mellitus without complications E11 .9 Active 535358508 Problem Prolonged menstrual cycle N92.1 Active 309241 003 Problem Irregular menstrual cycle N92.6 Active 717812 07 Problem Anxiety F41.9 Active 42211514 Problem Abnormal uterine bleeding N93.9 Active 444092 22005521 Problem HIV exposure Z20.6 Active 220489646 Problem Cervical high risk HPV (human papillomavirus) test positiv e R87.810 Active 991688664 Problem Gastroesophageal reflux disease without esophagitis K21.9 Active 956290098 Problem Mixed hyperlipidemia E78.2 Active 080310436 Problem Gastroesophageal reflux disease, esophagitis pre sence not specified K21.9 Active 545898071 Problem Post-traumatic osteoarthritis of left knee M17.32 Active 199591935 Problem Hx of abnormal cervical Pap smear Z87.42 Active 221176848 ALLERGIES Allergen (clinical drug ingredient) Drug/Non Drug Allergy do cumented on EMR Reaction Allergy Type Onset Date Status shrimp Anaphylaxis Non Drug Allergy Active floride Vomiting Non Drug Allergy Active metformin Metformin HCl([facility] Code:[address]-55) Diarrhea Drug Maged rgy Active ENCOUNTERS from 1981 to 2020-04-06 Encounter Location Date Provider Diagnosis [address] [address] 18 Mar, 2020 Sumaya Jeff IMMUNIZATIONS Vaccine Route Administration Date [...] Education Scientology: Question Answer Notes Scientology 08 Mandaeism Sexual Hx: Question Answer Notes Had sex [...] 40 MG 1 tablet Orally Daily Active BD Pen Needle Dary U/F 32G X 4 MM as directed DX: E11. 9 Daily with basaglar for 90 day(s) Jun, Active Basaglar KwikPen 100 UNIT/ML inject 80 units under the skin once daily Subcutaneous before bedtime Acti ve Glucometer as directed Dx E11.9 Feb, Ac tive Tylenol PM 1 tab Oral for 14 days Ac tive BD Insulin Syr Ultrafine II 31G X [...] Information RESULTS No Results REASON FOR VISIT no show MEDICAL (GENERAL) HISTORY Type Description Date Medical [...] Once a day for 28 day(s) Sep, Glucometer as directed Dx E11.9 Feb, Test Strips - as directed four times daily; E11.9, Z79.4 2019 Alprazolam 0.5 MG 1 tablet Orally Twice a day for 30 days Pantoprazole Sodium 40 MG 1 tablet Orally Daily BD Pen Needle Dary U/F 32G X 4 MM as directed DX: E11. 9 Daily with basaglar for 90 day(s) Jun, Basaglar KwikPen 100 UNIT/ML inject 80 units [...] day Oral before bedtime for 90 day(s) Insurance Providers Payer Name Payer Address Payer Phone Insured Name Patient Relati onship to Insured Coverage Start Date Coverage End Date [facility] [address] [facility] [phone] WEN JOHNSON self
--- OUTSIDE RECORDS SUMMARY | 2020-05-13 14:48 | CCD ---
Author Author [facility] ems Organization [facility] ems Address Unknown Phone Unavailable Care Team Providers Care Beam House Inspector Name Role Phone Sumaya Jeff Unavailable PROBLEMS Type Condition ICD9-CM Code [id number] Code Onset Dates Condition S tatus SNOMED Code Notes Problem detention current use of insulin Z79.4 Active 120899113 Problem Type 2 diabetes mellitus without complications E11 .9 Active 170147153 Problem Prolonged menstrual cycle N92.1 Active 179615 003 Problem Irregular menstrual cycle N92.6 Active 292068 07 Problem Anxiety F41.9 Active 15707187 Problem Abnormal uterine bleeding N93.9 Active 130103 70779899 Problem HIV exposure Z20.6 Active 459430401 Problem Cervical high risk HPV (human papillomavirus) test positiv e R87.810 Active 244487478 Problem Gastroesophageal reflux disease without esophagitis K21.9 Active 649191228 Problem Mixed hyperlipidemia E78.2 Active 314698802 Problem Gastroesophageal reflux disease, esophagitis pre sence not specified K21.9 Active 209952275 Problem Post-traumatic osteoarthritis of left knee M17.32 Active 517623927 Problem Hx of abnormal cervical Pap smear Z87.42 Active 461931938 ALLERGIES Allergen (clinical drug ingredient) Drug/Non Drug Allergy do cumented on EMR Reaction Allergy Type Onset Date Status shrimp Anaphylaxis Non Drug Allergy Active floride Vomiting Non Drug Allergy Active metformin Metformin HCl([facility] Code:[address]-35) Diarrhea Drug Maged rgy Active ENCOUNTERS from 1981 to 2020-02-23 Encounter Location Date Provider Diagnosis [facility] [place] [address] [place] [address] Feb, Sumaya Jeff Type 2 diabetes mellitus without [...] Notes Total Score: 1 Interpretation: Alcohol Education Adventism: Question Answer Notes Adventism 08 [employer] Sexual Hx: Question Answer Notes Had sex [...] Information RESULTS No Results REASON FOR VISIT Alogliptin Benzoate 25 MG Tablet MEDICAL (GENERAL) HISTORY Type Description Date Medical [...] Notes Treatment Notes Treatm ent Clinical Notes Feb, Type 2 diabetes mellitus without complications ( [...] Subcutaneous Twice daily per sliding scale 16 Oct, 2019 Alogliptin Benzoate 25 MG 1 tablet Orally Once a day for 90 days Basaglar KwikPen 100 UNIT/ML inject 80 units under the skin once daily Subcutaneous before bedtime Next Appt Details Provider Name:Sumaya Jeff, 2020-04-05 02:15:00 PM, [address] [place], [address], Insurance Providers Payer Name Payer Address Payer Phone Insured Name Patient Relati onship to Insured Coverage Start Date Coverage End Date [facility] [employer] [facility] [address] [facility] [id number] WEN JOHNSON self
--- OUTSIDE RECORDS SUMMARY | 2020-05-13 14:48 | CCD ---
Author Author [facility] ems Organization [facility] ems Address Unknown Phone Unavailable Care Team Providers Care Set Designer Name Role Phone Sumaya Jeff Unavailable PROBLEMS Type Condition ICD9-CM Code CTM19-IL Code Onset Dates Condition S tatus SNOMED Code Notes Problem correction current use of insulin Z79.4 Active 510670068 Problem Type 2 diabetes mellitus without complications E11 .9 Active 083093868 Problem Prolonged menstrual cycle N92.1 Active 850838 003 Problem Irregular menstrual cycle N92.6 Active 981058 07 Problem Anxiety F41.9 Active 10202633 Problem Abnormal uterine bleeding N93.9 Active 590702 22355778 Problem HIV exposure Z20.6 Active 788417071 Problem Cervical high risk HPV (human papillomavirus) test positiv e R87.810 Active 630758568 Problem Gastroesophageal reflux disease without esophagitis K21.9 Active 042437607 Problem Mixed hyperlipidemia E78.2 Active 046448371 Problem Gastroesophageal reflux disease, esophagitis pre sence not specified K21.9 Active 305365784 Problem Post-traumatic osteoarthritis of left knee M17.32 Active 060519620 Problem Hx of abnormal cervical Pap smear Z87.42 Active 143382337 ALLERGIES Allergen (clinical drug ingredient) Drug/Non Drug Allergy do cumented on EMR Reaction Allergy Type Onset Date Status shrimp Anaphylaxis Non Drug Allergy Active floride Vomiting Non Drug Allergy Active metformin Metformin HCl([facility] Code:[address]-70) Diarrhea Drug Maged rgy Active ENCOUNTERS from 1981 to 2020-02-21 Encounter Location Date Provider Diagnosis [facility] [place] [address] [place] [id number] Feb, Sumaya Jeff Type 2 diabetes mellitus without complic ations E11.9 ; correction current use of insulin Z79.4 ; Hx of abnormal cervical Pap smear Z87.42 ; Cervical high risk HPV (human papillomavirus) test positive R87.810 ; Abnormal uterine bleeding N93.9 ; Anxiety F41.9 ; Elevated BP without diagnosis of hypertension R03.0 ; Encounter for initial prescription of contraceptive pills Z30.011 and Gastroesophageal reflux disease, esophagitis presence not specified K21.9 IMMUNIZATIONS Vaccine Route Administration Date Status TDAP 0.5mL (Boostrix) Unknown September 06, 2017 Administer ed Hepatitis B Adult 1.0mL (Engerix-B) IM Intramuscular Apr 02 9 Administered Hepatitis B Adult 1.0mL (Engerix-B) IM Intramuscular October 08 18 Administered Hepatitis B Adult 1.0mL (Engerix-B) IM Intramuscular September 13 Administered SOCIAL HISTORY Tobacco Use: Social History Observation Description Date Details (start date - stop date) Never Smoker Sex Assigned At : Social History Observation Description Sex Assigned At Unknown Education: Question Answer Notes Level of Education: Finished High School Audit Question Answer Notes Total Score: 1 Interpretation: Alcohol Education Hoahaoism: Question Answer Notes Hoahaoism 08 [employer] Sexual Hx: Question Answer Notes Had sex [...] REASON FOR REFERRAL No Information VITAL SIGNS Weight 259 lbs Feb, Height 63.5 in Feb, BMI 45.16 kg/m2 Feb, Heart Rate 103 /min Feb, Respiratory Rate 20 /min Feb, Temperature 98 degrees Fahrenheit Feb, Oximetry 99 Feb, Blood pressure systolic 146 mm Hg Feb, Blood pressure diastolic 88 mm Hg Feb, MEDICATIONS Medication SIG (Take, Route, Frequency, Duration) Notes Start Da te End Date Status Basaglar KwikPen 100 UNIT/ML inject 80 units under the skin once daily Subcutaneous before bedtime Acti ve Admelog 100 UNIT/ML as directed Dx E11.9 MDD 40 Units Subcutaneous Twice daily per sliding scale 16 Dec, 2018 Active Test Strips - as directed four times daily; E11.9, Z79.4 0 Feb, Active Tri-Sprintec 0.18/0.215/0.25 MG-35 MCG 1 tablet Orally Once a day for 28 day(s) Sep, Active Aspir-81 81 MG 1 tablet Orally Once a day/states chewable kind Active Pantoprazole Sodium 40 MG 1 tablet Orally Daily Active Tylenol PM 1 tab Oral for 14 days Ac tive Alprazolam 0.5 MG 1 tablet Orally Twice a day for 30 days Active Glucometer as directed Dx E11.9 Feb, Ac tive Alogliptin Benzoate 25 MG 1 tablet Orally Once a day Active BD Insulin Syr Ultrafine II 31G [...] Information RESULTS No Results REASON FOR VISIT Transfer [facility], Reference #: [id number] last fill xanax 01/15/2020 MEDICAL (GENERAL) HISTORY Type Description Date Medical [...] mellitus without complications ( ICD-10 - E11.9) I discussed diabetes with the patient at length; I advised that uncontrolled glucose can lead to damage to nerves, kidneys, and eyes, causing neuropathy, renal failure, and blindness, and also increases risk of RI and CVA. I told her that I cannot control her diabetes with medications and also allow her to eat whatever she wants on any schedule; I advised diabetes can only be controlled if she eats at least 2-3 times daily and eats a carb consistent diet. I also told her I cannot make any medication changes until she starts checking glucose levels regularly. She states she wants to get her diabetes under control and is going to start checking glucose and will try to improve her diet. I would like to try metformin ER as she had GI side effects with metformin in the past; will wait for results of BMP before starting metformin. Will do more thorough diabetes assessment at her next visit, including foot exam. Feb, correction current use of insulin (ICD-10 - Z79.4 ) Feb, Hx of abnormal cervical Pap smear (ICD-10 - Z87. 42) I strongly recommended repeat pap due to history of abnormal pap and risk for cervical cancer - she verbalizes understanding of risks of delaying pap. She wants to follow up with Aleida Saldana for this and I urged to call [facility] for an appointment. Feb, Cervical high risk HPV (cisco n papillomavirus) test positive (ICD-10 - R87.810) See above. Feb, Abnormal uterine bleeding (ICD-10 - N93.9) This has resolved; however, I explained that just because bleeding resolved, we cannot say for certain that she doesn't have any underlying endometrial cancer. She verbalizes understanding, chooses not to pursue workup for this right now. Feb, Anxiety (ICD-10 - F41.9) I discussed risks of alprazolam at length, including risk of dependence, respiratory depression (especially if combined with opioids) and , and risk of withdrawal symptoms and seizures if she were to stop this abruptly. I advised that I need to see her regularly in the office in order to continue to prescribe this. CSA was signed today. Feb, Elevated BP without diagnosis of hypertension (I CD-10 - R03.0) First time BP has been elevated; will recheck at next appointment. I recommended exercise, healthy diet, decreasing salt in diet in order to control BP without medication as she would prefer to not start a medication if possible. Feb, Encounter for initial prescr iption of contraceptive pills (ICD-10 - Z30.011) Discussed options for contraception, including OCPs, Nuvaring, patch, Depo provera, IUD, and Nexplanon. Discussed risks of estrogen including increased risk of clotting. Patient denies history of migraines and personal or family history of clotting disorders. Due to irregular periods and history of unprotected sex, I told her that I cannot start OCPs right now; I advised that she needs to go 2 weeks without any unprotected sex and then come in for a test OR wait until her next peroid and call for a rx. Feb, Gastroesophageal reflux dise ase, esophagitis presence not specified (ICD-10 - K21.9) Symptoms are well controlled; I discussed risk of daily PPI use care home, including malabsorption of nutrients and increased risk of C. diff; this is especially concerning for her, given her history of C. diff - she verbalized understanding. I recommended trying to cut back to PRN use. PLAN OF TREATMENT Medication Medication Name Sig [...] Subcutaneous Twice daily per sliding scale Dec, Basaglar KwikPen 100 UNIT/ML inject 80 units under the skin once daily Subcutaneous before bedtime Alogliptin Benzoate 25 MG 1 tablet Orally Once a day Treatment Notes Assessment Notes Clinical Notes Type 2 diabetes mellitus without complications I discussed diabetes with the patient at length; I advised that uncontrolled glucose can lead to damage to nerves, kidneys, and eyes, causing neuropathy, renal failure, and blindness, and also increases risk of RI and CVA. I told her that I cannot control her diabetes with medications and also allow her to eat whatever she wants on any schedule; I advised diabetes can only be controlled if she eats at least 2-3 times daily and eats a carb consistent diet. I also told her I cannot make any medication changes until she starts checking glucose levels regularly. She states she wants to get her diabetes under control and is going to start checking glucose and will try to improve her diet. I would like to try metformin ER as she had GI side effects with metformin in the past; will wait for results of BMP before starting metformin. Will do more thorough diabetes assessment at her next visit, including foot exam. Hx of abnormal cervical Pap smear I priscilla can recommended repeat pap due to history of abnormal pap and risk for cervical cancer - she verbalizes understanding of risks of delaying pap. She wants to follow up with Aleida Saldana for this and I urged to call [facility] for an appointment. Cervical high risk HPV (human papillomavirus) test positive See above. Abnormal uterine bleeding This has resol julian; however, I explained that just because bleeding resolved, we cannot say for certain that she doesn't have any underlying endometrial cancer. She verbalizes understanding, chooses not to pursue workup for this right now. Anxiety I discussed risks of alprazolam at length, including risk of dependence, respiratory depression (especially if combined with opioids) and , and risk of withdrawal symptoms and seizures if she were to stop this abruptly. I advised that I need to see her regularly in the office in order to continue to prescribe this. CSA was signed today. Elevated BP without diagnosis of hypertension First time BP has been elevated; will recheck at next appointment. I recommended exercise, healthy diet, decreasing salt in diet in order to control BP without medication as she would prefer to not start a medication if possible. Encounter for initial prescription of contraceptive pills Discussed options for contraception, including OCPs, Nuvaring, patch, Depo provera, IUD, and Nexplanon. Discussed risks of estrogen including increased risk of clotting. Patient denies history of migraines and personal or family history of clotting disorders. Due to irregular periods and history of unprotected sex, I told her that I cannot start OCPs right now; I advised that she needs to go 2 weeks without any unprotected sex and then come in for a test OR wait until her next peroid and call for a rx. Gastroesophageal reflux disease, esophagitis presence not sp ecified Symptoms are well controlled; I discussed risk of daily PPI use intermediate manager, including malabsorption of nutrients and increased risk of C. diff; this is especially concerning for her, given her history of C. diff - she verbalized understanding. I recommended trying to cut back to PRN use. Future Test Test Name Order Date Basic Metabolic Profile (BMP) 20200219 HEMOGLOBIN A1c [id number] Next Appt Details 4-6 weeks Reason:F/u DM2 Provider Name:Sumaya Jeff, 2020-04-05 02:15:00 PM, [address] [place], [address], Follow Up:4-6 weeksF/u DM2 Insurance Providers Payer Name Payer Address Payer Phone Insured Name Patient Relati onship to Insured Coverage Start Date Coverage End Date [facility] [employer] [facility] [facility] [address] [facility] [id number] WEN JOHNSON self
--- OUTSIDE RECORDS SUMMARY | 2020-05-13 14:48 | CCD ---
Author Author [facility] Organization [facility] Address Unknown Phone Unavailable Care Team Providers Care Outreach Clinician Name Role Phone AARON, LIA PA Unavailable Unavailable AARON, LIA PA Unavailable Unavailable AARON, LIA PA Unavailable Unavailable AARON, LIA PA Unavailable Unavailable AARON, LIA PA Unavailable Unavailable AARON, LIA PA Unavailable Unavailable AARON, LIA PA Unavailable Unavailable AARON, LIA PA Unavailable Unavailable AARON, LIA PA Unavailable Unavailable AARON, LIA PA Unavailable Unavailable AARON, LIA PA Unavailable Unavailable AARON, LIA PA Unavailable Unavailable AARON, LIA PA Unavailable Unavailable AARON, LIA PA Unavailable Unavailable AARON, LIA PA Unavailable Unavailable AARON, LIA PA Unavailable Unavailable AARON, LIA PA Unavailable Unavailable AARON, LIA PA Unavailable Unavailable AARON, LIA PA Unavailable Unavailable AARON, LIA PA Unavailable Unavailable AARON, LIA PA Unavailable Unavailable AARON, LIA PA Unavailable Unavailable AARON, LIA PA Unavailable Unavailable AARON, LIA PA Unavailable Unavailable AARON, LIA PA Unavailable Unavailable AARON, LIA PA Unavailable Unavailable AARON, LIA PA Unavailable Unavailable AARON, LIA PA Unavailable Unavailable AARON, LIA PA Unavailable Unavailable AARON, LIA PA Unavailable Unavailable AARON, LIA PA Unavailable Unavailable AARON, LIA PA Unavailable Unavailable AARON, LIA PA Unavailable Unavailable AARON, LIA PA Unavailable Unavailable AARON, LIA PA Unavailable Unavailable AARON, LIA PA Unavailable Unavailable AARON, LIA PA Unavailable Unavailable AARON, LIA PA Unavailable Unavailable AARON, LIA PA Unavailable Unavailable Re-disclosure Warning The records that you are about to access may contain information from federally-assisted alcohol or drug abuse programs. If such information is present, then the following federally mandated warning applies: This information has been disclosed to you from records protected by federal confidentiality rules (42 CFR part 2). The federal rules prohibit you from making any further disclosure of this information unless further disclosure is expressly permitted by the written consent of the person to whom it pertains or as otherwise permitted by 42 CFR part 2. A general authorization for the release of medical or other information is NOT sufficient for this purpose. The Federal rules restrict any use of the information to criminally investigate or prosecute any alcohol or drug abuse patient.The records that you are about to access may contain highly sensitive health information, the redisclosure of which is protected by Article 27-F of the [facility] Public Health law. If you continue you may have access to information: Regarding HIV / AIDS; Provided by facilities licensed or operated by the [facility] Office of Mental Health; or Provided by the [facility] Office for People With Developmental Disabilities. If such information is present, then the following [facility] mandated warning applies: This information has been disclosed to you from confidential records which are protected by state law. State law prohibits you from making any further disclosure of this information without the specific written consent of the person to whom it pertains, or as otherwise permitted by law. Any unauthorized further disclosure in violation of state law may result in a fine or longterm sentence or both. A general authorization for the release of medical or other information is NOT sufficient authorization for further disc losure. Allergies and Adverse Reactions Type Description Substance Reaction Status Data Source(s ) shrimp shrimp shrimp Anaphylaxis Active eCW1 ([facility]) floride floride floride Vomiting Active eCW1 ([facility]) Family History Family Member Name Family Member Gender Family Member Status Date o f Status Description Data Source(s) Unknown Male Problem MEDENT ([facility]) Unknown Unknown Problem MEDENT ([facility]) Unknown Unknown Problem MEDENT ([facility]) Mom age 29 Encounters Encounter Providers Location Date Indications Data Source(s ) Unknown [address] [facility] [address] 04/23/2020 12:00:00 AM EST eCW1 ([facility]) [place] [address] [facility] [place] [address] 04/12/2020 12:00:00 AM EST [facility]CW1 ([facility]) [place] [address] [facility] [place] [address] 04/05/2020 12:00:00 AM EST eCW1 ([facility]) [place] [address] [facility] [place] [address] 03/29/2020 12:00:00 AM EST eCW1 ([facility]) [place] [address] [facility] [place] [address] 03/24/2020 12:00:00 AM EST eCW1 ([facility]) [place] [address] [facility] [address] 03/10/2020 12:00:00 AM EST eCW1 ([facility]) [place] [address] [facility] [place] [address] 02/24/2020 12:00:00 AM EST eCW1 ([facility]) [place] [address] [facility] [place] [address] 02/23/2020 12:00:00 AM EST eCW1 ([facility]) Outpatient [address] [facility] [place] [address] 02/19/2020 12:00:00 AM EST eCW1 ([facility]) [place] [address] [facility] [place] [address] 02/11/2020 12:00:00 AM EST eCW1 ([facility]) Unknown [address] [facility] [address] 01/22/2020 12:00:00 AM EST eCW1 ([facility]) Unknown [address] [facility] [address] 01/13/2020 12:00:00 AM EDT eCW1 ([facility]) Unknown [address] [facility] [address] 12/30/2019 12:00:00 AM EDT eCW1 ([facility]) Unknown [address] [facility] [address] 12/29/2019 12:00:00 AM EDT eCW1 ([facility]) Unknown [address] [facility] [address] 12/25/2019 12:00:00 AM EDT eCW1 ([facility]) Unknown [address] [facility] [address] 10/07/2019 12:00:00 AM EDT eCW1 ([facility]) Unknown [address] [facility] [address] 09/30/2019 12:00:00 AM EDT eCW1 ([facility]) Unknown [address] [facility] [address] 09/04/2019 12:00:00 AM EDT eCW1 ([facility]) Outpatient [address] [facility] [address] 08/28/2019 12:00:00 AM EDT eCW1 ([facility]) Unknown [address] [facility] [address] 08/27/2019 12:00:00 AM EDT eCW1 ([facility]) Unknown [address] [facility] [address] 08/19/2019 12:00:00 AM EDT eCW1 ([facility]) Outpatient Attender: LIA de luna 08/18/2019 04:00:00 PM EDT MEDENT ([facility] [address] [place] [address], [place] [address] 07/18/2019 12:00:00 AM EDT eCW1 ([facility]) [facility] [address] [place] [address], [place] [address] 07/17/2019 12:00:00 AM EDT eCW1 ([facility]) [address] [address] 07/03/2019 12:00:00 AM EDT [facility]CW1 [facility] [address] [address] 06/26/2019 12:00:00 AM EDT eCW1 ([facility]) [facility] [address] [place] [address] 06/23/2019 12:00:00 AM EDT eCW1 ([facility]) [address] [address] 06/20/2019 12:00:00 AM EDT eCW1 ([facility]) [address] [address] 06/09/2019 12:00:00 AM EDT eCW1 ([facility]) [address] [address] 06/02/2019 12:00:00 AM EDT eCW1 ([facility]) [address] [place] [address] 05/27/2019 12:00:00 AM EDT eCW1 ([facility]) [address] [address] 05/27/2019 12:00:00 AM EDT eCW1 ([facility]) [address] [address] 05/21/2019 12:00:00 AM EST eCW1 ([facility]) [address] [address] 05/19/2019 12:00:00 AM EST eCW1 ([facility]) [address] [place] [address] 05/08/2019 12:00:00 AM EST eCW1 ([facility]) [address] [address] 05/06/2019 12:00:00 AM EST eCW1 ([facility]) [address] [address] 04/24/2019 12:00:00 AM EST eCW1 ([facility]) [facility] [address] [place] [address] 04/03/2019 12:00:00 AM EST eCW1 ([facility]) [address] [address] 04/03/2019 12:00:00 AM EST eCW1 ([facility]) [address] [address] 03/25/2019 12:00:00 AM EST eCW1 ([facility]) [address] [address] 03/24/2019 12:00:00 AM EST eCW1 ([facility]) [address] [address] 03/21/2019 12:00:00 AM EST eCW1 ([facility]) Medications Medication Brand Name Start Date Product Form Dose Route Admi nistrative Instructions Pharmacy Instructions Status Indications Reaction Description Data Source(s) Glucometer UNK 02/19/2020 12:00:00 AM EST active Glucometer [facility] Test Strips - UNK 02/19/2020 12:00:00 AM EST acti ve Test Strips - [facility]CW1 ([facility]) Test Strips - UNK 02/19/2020 12:00:00 AM EST acti ve Test Strips - eCW1 ([facility]) Test Strips - UNK 02/19/2020 12:00:00 AM EST acti ve Test Strips - eCW1 ([facility]) Test Strips - UNK 02/19/2020 12:00:00 AM EST acti ve Test Strips - eCW1 ([facility]) Glucometer UNK 02/19/2020 12:00:00 AM EST active Glucometer eCW1 ([facility]) Lancets - Lancets - 02/19/2020 12:00:00 AM EST act reggie Lancets - eCW1 ([facility]) Lancets - Lancets - 02/19/2020 12:00:00 AM EST act reggie Lancets - eCW1 ([facility]) Lancets - Lancets - 02/19/2020 12:00:00 AM EST act reggie Lancets - eCW1 ([facility]) Test Strips - UNK 02/19/2020 12:00:00 AM EST acti ve Test Strips - eCW1 ([facility]) Glucometer UNK 02/19/2020 12:00:00 AM EST active Glucometer eCW1 ([facility]) Glucometer UNK 02/19/2020 12:00:00 AM EST active Glucometer eCW1 ([facility]) Glucometer UNK 02/19/2020 12:00:00 AM EST active Glucometer eCW1 ([facility]) Lancets - Lancets - 02/19/2020 12:00:00 AM EST act reggie Lancets - eCW1 ([facility]) Lancets - Lancets - 02/19/2020 12:00:00 AM EST act reggie Lancets - eCW1 ([facility]) Glucometer UNK 02/19/2020 12:00:00 AM EST active Glucometer eCW1 ([facility]) Glucometer UNK 02/19/2020 12:00:00 AM EST active Glucometer eCW1 ([facility]) Lancets - Lancets - 02/19/2020 12:00:00 AM EST act reggie Lancets - eCW1 ([facility]) Glucometer UNK 02/19/2020 12:00:00 AM EST active Glucometer eCW1 ([facility]) Lancets - Lancets - 02/19/2020 12:00:00 AM EST act reggie Lancets - eCW1 ([facility]) Lancets - Lancets - 02/19/2020 12:00:00 AM EST act reggie Lancets - eCW1 ([facility]) Test Strips - UNK 02/19/2020 12:00:00 AM EST acti ve Test Strips - eCW1 ([facility]) Test Strips - UNK 02/19/2020 12:00:00 AM EST acti ve Test Strips - eCW1 ([facility]) Glucometer UNK 02/19/2020 12:00:00 AM EST active Glucometer eCW1 ([facility]) Test Strips - UNK 02/19/2020 12:00:00 AM EST acti ve Test Strips - eCW1 ([facility]) Lancets - Lancets - 02/19/2020 12:00:00 AM EST act reggie Lancets - eCW1 ([facility]) Test Strips - UNK 02/19/2020 12:00:00 AM EST acti ve Test Strips - eCW1 ([facility]) Tri-Sprintec 0.18/0.215/0.25 MG-35 MCG Tri-Sprintec 0.18/0.2 15/0.25 MG-35 MCG 09/30/2019 12:00:00 AM EDT 1.0 {tablet} active Tri-Sprintec 0.18/0.215/0.25 MG-35 MCG eCW1 ([facility]) Tri-Sprintec 0.18/0.215/0.25 MG-35 MCG Tri-Sprintec 0.18/0.2 15/0.25 MG-35 MCG 09/30/2019 12:00:00 AM EDT 1.0 {tablet} active Tri-Sprintec 0.18/0.215/0.25 MG-35 MCG eCW1 ([facility]) Tri-Sprintec 0.18/0.215/0.25 MG-35 MCG Tri-Sprintec 0.18/0.2 15/0.25 MG-35 MCG 09/30/2019 12:00:00 AM EDT 1.0 {tablet} active Tri-Sprintec 0.18/0.215/0.25 MG-35 MCG eCW1 ([facility]) Tri-Sprintec 0.18/0.215/0.25 MG-35 MCG Tri-Sprintec 0.18/0.2 15/0.25 MG-35 MCG 09/30/2019 12:00:00 AM EDT 1.0 {tablet} active Tri-Sprintec 0.18/0.215/0.25 MG-35 MCG eCW1 ([facility]) Tri-Sprintec 0.18/0.215/0.25 MG-35 MCG Tri-Sprintec 0.18/0.2 15/0.25 MG-35 MCG 09/30/2019 12:00:00 AM EDT 1.0 {tablet} active Tri-Sprintec 0.18/0.215/0.25 MG-35 MCG eCW1 ([facility]) Tri-Sprintec 0.18/0.215/0.25 MG-35 MCG Tri-Sprintec 0.18/0.2 15/0.25 MG-35 MCG 09/30/2019 12:00:00 AM EDT 1.0 {tablet} active Tri-Sprintec 0.18/0.215/0.25 MG-35 MCG eCW1 ([facility]) Tri-Sprintec 0.18/0.215/0.25 MG-35 MCG Tri-Sprintec 0.18/0.2 15/0.25 MG-35 MCG 09/30/2019 12:00:00 AM EDT 1.0 {tablet} active Tri-Sprintec 0.18/0.215/0.25 MG-35 MCG eCW1 ([facility]) Tri-Sprintec 0.18/0.215/0.25 MG-35 MCG Tri-Sprintec 0.18/0.2 15/0.25 MG-35 MCG 09/30/2019 12:00:00 AM EDT 1.0 {tablet} active Tri-Sprintec 0.18/0.215/0.25 MG-35 MCG eCW1 ([facility]) Tri-Sprintec 0.18/0.215/0.25 MG-35 MCG Tri-Sprintec 0.18/0.2 15/0.25 MG-35 MCG 09/30/2019 12:00:00 AM EDT 1.0 {tablet} active Tri-Sprintec 0.18/0.215/0.25 MG-35 MCG eCW1 ([facility]) Tri-Sprintec 0.18/0.215/0.25 MG-35 MCG Tri-Sprintec 0.18/0.2 15/0.25 MG-35 MCG 09/30/2019 12:00:00 AM EDT 1.0 {tablet} active Tri-Sprintec 0.18/0.215/0.25 MG-35 MCG eCW1 ([facility]) Tri-Sprintec 0.18/0.215/0.25 MG-35 MCG Tri-Sprintec 0.18/0.2 15/0.25 MG-35 MCG 09/30/2019 12:00:00 AM EDT 1.0 {tablet} active Tri-Sprintec 0.18/0.215/0.25 MG-35 MCG eCW1 ([facility]) Tri-Sprintec 0.18/0.215/0.25 MG-35 MCG Tri-Sprintec 0.18/0.2 15/0.25 MG-35 MCG 09/30/2019 12:00:00 AM EDT 1.0 {tablet} active Tri-Sprintec 0.18/0.215/0.25 MG-35 MCG eCW1 ([facility]) Tri-Sprintec 0.18/0.215/0.25 MG-35 MCG Tri-Sprintec 0.18/0.2 15/0.25 MG-35 MCG 09/30/2019 12:00:00 AM EDT 1.0 {tablet} active Tri-Sprintec 0.18/0.215/0.25 MG-35 MCG eCW1 ([facility]) Tri-Sprintec 0.18/0.215/0.25 MG-35 MCG Tri-Sprintec 0.18/0.2 15/0.25 MG-35 MCG 09/30/2019 12:00:00 AM EDT 1.0 {tablet} active Tri-Sprintec 0.18/0.215/0.25 MG-35 MCG eCW1 ([facility]) Tri-Sprintec 0.18/0.215/0.25 MG-35 MCG Tri-Sprintec 0.18/0.2 15/0.25 MG-35 MCG 09/30/2019 12:00:00 AM EDT 1.0 {tablet} active Tri-Sprintec 0.18/0.215/0.25 MG-35 MCG eCW1 ([facility]) Tri-Sprintec 0.18/0.215/0.25 MG-35 MCG Tri-Sprintec 0.18/0.2 15/0.25 MG-35 MCG 09/30/2019 12:00:00 AM EDT 1.0 {tablet} active Tri-Sprintec 0.18/0.215/0.25 MG-35 MCG eCW1 ([facility]) Tri-Sprintec 0.18/0.215/0.25 MG-35 MCG Tri-Sprintec 0.18/0.2 15/0.25 MG-35 MCG 09/30/2019 12:00:00 AM EDT 1.0 {tablet} active Tri-Sprintec 0.18/0.215/0.25 MG-35 MCG eCW1 ([facility]) medroxyprogesterone acetate 10 MG Oral Tablet [Provera ] Provera 10 MG Provera 10 MG 08/28/2019 12:00:00 AM EDT 1.0 {tablet_with_food} active Provera 10 MG eCW1 ([facility]) medroxyprogesterone acetate 10 MG Oral Tablet [Provera ] Provera 10 MG Provera 10 MG 08/28/2019 12:00:00 AM EDT 1.0 {tablet_with_food} active Provera 10 MG eCW1 ([facility]) medroxyprogesterone acetate 10 MG Oral Tablet [Provera ] Provera 10 MG Provera 10 MG 08/28/2019 12:00:00 AM EDT 1.0 {tablet_with_food} active Provera 10 MG eCW1 ([facility]) medroxyprogesterone acetate 10 MG Oral Tablet [Provera ] Provera 10 MG Provera 10 MG 08/28/2019 12:00:00 AM EDT 1.0 {tablet_with_food} active Provera 10 MG eCW1 ([facility]) medroxyprogesterone acetate 10 MG Oral Tablet [Provera ] Provera 10 MG Provera 10 MG 08/28/2019 12:00:00 AM EDT 1.0 {tablet_with_food} active Provera 10 MG eCW1 ([facility]) medroxyprogesterone acetate 10 MG Oral Tablet [Provera ] Provera 10 MG Provera 10 MG 08/28/2019 12:00:00 AM EDT 1.0 {tablet_with_food} active Provera 10 MG eCW1 ([facility]) medroxyprogesterone acetate 10 MG Oral Tablet [Provera ] Provera 10 MG Provera 10 MG 08/28/2019 12:00:00 AM EDT 1.0 {tablet_with_food} active Provera 10 MG eCW1 ([facility]) medroxyprogesterone acetate 10 MG Oral Tablet [Provera ] Provera 10 MG Provera 10 MG 08/28/2019 12:00:00 AM EDT 1.0 {tablet_with_food} active Provera 10 MG eCW1 ([facility]) medroxyprogesterone acetate 10 MG Oral Tablet [Provera ] Provera 10 MG Provera 10 MG 08/28/2019 12:00:00 AM EDT 1.0 {tablet_with_food} active Provera 10 MG eCW1 ([facility]) medroxyprogesterone acetate 10 MG Oral Tablet [Provera ] Provera 10 MG Provera 10 MG 08/28/2019 12:00:00 AM EDT 1.0 {tablet_with_food} active Provera 10 MG eCW1 ([facility]) medroxyprogesterone acetate 10 MG Oral Tablet [Provera ] Provera 10 MG Provera 10 MG 08/28/2019 12:00:00 AM EDT 1.0 {tablet_with_food} active Provera 10 MG eCW1 [facility]) BD Pen Needle Dary U/F 32G X 4 MM BD Pen Needle Dary U/F 32G X 4 MM 07/17/2019 12:00:00 AM EDT active BD Pen N eedle Dary U/F 32G X 4 MM [facility]CW1 ([facility]) BD Pen Needle Dary U/F 32G X 4 MM BD Pen Needle Dary U/F 32G X 4 MM 07/17/2019 12:00:00 AM EDT active BD Pen N eedle Dary U/F 32G X 4 MM eCW1 ([facility]) BD Pen Needle Dary U/F 32G X 4 MM BD Pen Needle Dary U/F 32G X 4 MM 07/17/2019 12:00:00 AM EDT active BD Pen N eedle Dary U/F 32G X 4 MM eCW1 ([facility]) BD Pen Needle Dary U/F 32G X 4 MM BD Pen Needle Dary U/F 32G X 4 MM 07/17/2019 12:00:00 AM EDT active BD Pen N eedle Dary U/F 32G X 4 MM eCW1 ([facility]) BD Pen Needle Dary U/F 32G X 4 MM BD Pen Needle Dary U/F 32G X 4 MM 07/17/2019 12:00:00 AM EDT active as direc robin eCW1 ([facility]) BD Pen Needle Dary U/F 32G X 4 MM BD Pen Needle Dary U/F 32G X 4 MM 07/17/2019 12:00:00 AM EDT active BD Pen N eedle Dary U/F 32G X 4 MM eCW1 ([facility]) BD Pen Needle Dary U/F 32G X 4 MM BD Pen Needle Dary U/F 32G X 4 MM 07/17/2019 12:00:00 AM EDT active BD Pen N eedle Dary U/F 32G X 4 MM eCW1 ([facility]) BD Pen Needle Dary U/F 32G X 4 MM BD Pen Needle Dary U/F 32G X 4 MM 07/17/2019 12:00:00 AM EDT active BD Pen N eedle Dary U/F 32G X 4 MM eCW1 ([facility]) BD Pen Needle Dary U/F 32G X 4 MM BD Pen Needle Dary U/F 32G X 4 MM 07/17/2019 12:00:00 AM EDT active BD Pen N eedle Dary U/F 32G X 4 MM eCW1 ([facility]) BD Pen Needle Dary U/F 32G X 4 MM BD Pen Needle Dary U/F 32G X 4 MM 07/17/2019 12:00:00 AM EDT active BD Pen N eedle Dary U/F 32G X 4 MM eCW1 ([facility]) BD Pen Needle Dary U/F 32G X 4 MM BD Pen Needle Dary U/F 32G X 4 MM 07/17/2019 12:00:00 AM EDT active BD Pen N eedle Dary U/F 32G X 4 MM eCW1 ([facility]) BD Pen Needle Dary U/F 32G X 4 MM BD Pen Needle Dary U/F 32G X 4 MM 07/17/2019 12:00:00 AM EDT active BD Pen N eedle Dary U/F 32G X 4 MM eCW1 ([facility]) BD Pen Needle Dary U/F 32G X 4 MM BD Pen Needle Dary U/F 32G X 4 MM 07/17/2019 12:00:00 AM EDT active BD Pen N eedle Dary U/F 32G X 4 MM eCW1 ([facility]) BD Pen Needle Dary U/F 32G X 4 MM BD Pen Needle Dary U/F 32G X 4 MM 07/17/2019 12:00:00 AM EDT active BD Pen N eedle Dary U/F 32G X 4 MM eCW1 ([facility]) BD Pen Needle Dary U/F 32G X 4 MM BD Pen Needle Dary U/F 32G X 4 MM 07/17/2019 12:00:00 AM EDT active BD Pen N eedle Dary U/F 32G X 4 MM eCW1 ([facility]) BD Pen Needle Dary U/F 32G X 4 MM BD Pen Needle Dary U/F 32G X 4 MM 07/17/2019 12:00:00 AM EDT active BD Pen N eedle Dary U/F 32G X 4 MM eCW1 ([facility]) BD Pen Needle Dary U/F 32G X 4 MM BD Pen Needle Dary U/F 32G X 4 MM 07/17/2019 12:00:00 AM EDT active BD Pen N eedle Dary U/F 32G X 4 MM eCW1 ([facility]) BD Pen Needle Dary U/F 32G X 4 MM BD Pen Needle Dary U/F 32G X 4 MM 07/17/2019 12:00:00 AM EDT active BD Pen N eedle Dary U/F 32G X 4 MM eCW1 ([facility]) BD Pen Needle Dary U/F 32G X 4 MM BD Pen Needle Dary U/F 32G X 4 MM 07/17/2019 12:00:00 AM EDT active BD Pen N eedle Dary U/F 32G X 4 MM eCW1 ([facility]) BD Pen Needle Dary U/F 32G X 4 MM BD Pen Needle Dary U/F 32G X 4 MM 07/17/2019 12:00:00 AM EDT active BD Pen N eedle Dary U/F 32G X 4 MM eCW1 [facility]) BD Pen Needle Dary U/F 32G X 4 MM BD Pen Needle Dary U/F 32G X 4 MM 07/17/2019 12:00:00 AM EDT active BD Pen N eedle Dary U/F 32G X 4 MM [facility]CW1 [facility]) Insurance Providers Payer name Policy type / Coverage type Policy ID Covered republican ID Covered republican's relationship to rehman Policy Rehman Plan Information [facility] [id number] [facility] Community Plan Commercial [id number] Self [id number] ANSI-Medicaid [id number] [facility] Community Plan Commercial [id number] Self [id number] ANSI-Medicaid [id number] ANSI-Medicaid [id number] ANSI-Medicaid [id number] ANSI-Medicaid [id number] ANSI-Medicaid [id number] [facility] MCDO [id number] SP [id number] [facility] Community Plan Commercial [id number] Self [id number] [facility] Community Plan Commercial [id number] Self [id number] ANSI-Medicaid [id number] [facility] Community Plan Commercial [id number] Self [id number] [facility] O [id number] S [id number] [facility] Community Plan Commercial [id number] Self [id number] [facility] Community Plan Commercial [id number] Self [id number] [facility] Community Plan Commercial [id number] Self [id number] [facility] Health Maintenance Organization (HMO) [id number] Self [id number] [facility] Health Maintenance Organization (HMO) Self MEDICAID [id number] SP [id number] SELF PAY UNAVAILABLE SP UNAVAILA BLE SELF PAY P UNAVAILABLE S UNAVAILA BLE [facility] [id number] SP [id number] Problems, Conditions, and Diagnoses Code Display Name Description Problem Type Effective Dates Data Source(s) Z01.419 [id number] Routine gynecological examination Problem 09/18/2019 12:00:00 AM EDT [facility] R87.810 [id number] Cervical high risk HPV (human pa pillomavirus) test positive Problem 08/28/2019 12:00:00 AM EDT eCW1 ([facility]) N93.9 [id number] Abnormal uterine bleeding Problem 08/28/2019 12:00:00 AM EDT [facility] ([facility]) Results ID Date Data Source [id number] 08/18/2019 04:30:00 PM EDT [facility] ([facility]) Name Value Range Interpretation Code Description Data Heide rce(s) Supporting Document(s) Bacteria identified in Urine by Culture Laboratory test result [facility] ([facility]) No Rx ID Date Data Source [id number] 05/08/2019 12:00:00 AM EST eCW1 ([facility]) Name Value Range Interpretation Code Description Data Heide rce(s) Supporting Document(s) Microalbumin/Creatinine [Ratio] in Urine 12.9 0.0-30.0 BRANDY/CREAT RATIO eCW[facility] Microalbumin/Creatinine [Mass Ratio] in Urine 119.0 CREATININE, URINE eCW1 ([facility]) Albumin/Creatinine [Mass Ratio] in Urine 15.4 MALB URINE SIEMENS eCW1 [facility]) ID Date Data Source [id number] 05/08/2019 12:00:00 AM EST eCW1 ([facility]) Name Value Range Interpretation Code Description Data Heide rce(s) Supporting Document(s) Hemoglobin A1c/Hemoglobin.total in Blood 9.4 HEMOGLOBIN A1c eCW1 ([facility]) Procedure Social History Code Duration Value Status Description Data Source(s ) Smoking 02/19/2020 12:00:00 AM EST Never Smoker completed Never S moker eCW1 ([facility]) Smoking 02/19/2020 12:00:00 AM EST Never Smoker completed Never S moker eCW1 ([facility]) Smoking 02/19/2020 12:00:00 AM EST Never Smoker completed Never S moker eCW1 ([facility]) Smoking 02/19/2020 12:00:00 AM EST Never Smoker completed Never S moker eCW1 ([facility]) Smoking 02/19/2020 12:00:00 AM EST Never Smoker completed Never S moker eCW1 ([facility]) Smoking 02/19/2020 12:00:00 AM EST Never Smoker completed Never S moker eCW1 ([facility]) Smoking 02/19/2020 12:00:00 AM EST Never Smoker completed Never S moker eCW1 ([facility]) Smoking 02/19/2020 12:00:00 AM EST Never Smoker completed Never S moker eCW1 ([facility]) Smoking 02/19/2020 12:00:00 AM EST Never Smoker completed Never S moker eCW1 ([facility]) Smoking 09/18/2019 12:00:00 AM EDT Never Smoker completed Never S moker eCW1 ([facility]) Smoking 09/18/2019 12:00:00 AM EDT Never Smoker completed Never S moker eCW1 ([facility]) Smoking 09/18/2019 12:00:00 AM EDT Never Smoker completed Never S moker eCW1 ([facility]) Smoking 09/18/2019 12:00:00 AM EDT Never Smoker completed Never S moker eCW1 ([facility]) Smoking 09/18/2019 12:00:00 AM EDT Never Smoker completed Never S moker eCW1 ([facility]) Smoking 09/18/2019 12:00:00 AM EDT Never Smoker completed Never S moker eCW1 ([facility]) Smoking 09/18/2019 12:00:00 AM EDT Never Smoker completed Never S moker eCW1 ([facility]) Smoking 09/18/2019 12:00:00 AM EDT Never Smoker completed Never S moker eCW1 ([facility]) Smoking 08/28/2019 12:00:00 AM EDT Never Smoker completed Never S moker eCW1 ([facility]) Smoking 08/28/2019 12:00:00 AM EDT Never Smoker completed Never S moker eCW1 ([facility]) Smoking 08/28/2019 12:00:00 AM EDT Never Smoker completed Never S moker eCW1 ([facility]) Vital Signs ID Date Data Source UNK Name Value Range Interpretation Code Description Data Source(s) Diastolic blood pressure 88 mm[Hg] 88 mm[Hg] eCW1 [facility]) Systolic blood pressure 146 mm[Hg] 146 mm[Hg] e CW1 ([facility]) Body temperature 98 [degF] 98 [degF] eCW1 ([facility]) Respiratory rate 20 /min 20 /min eCW1 ([facility]) Heart rate 103 /min 103 /min eCW1 ([facility]) Body mass index (BMI) [Ratio] 45.16 kg/m2 45.16 kg/m2 W1 ([facility]) Body height 63.5 [in_i] 63.5 [in_i] eCW1 ([facility]) Body weight 259 [lb_av] 259 [lb_av] eCW1 ([facility]) Body weight 253 [lb_av] 253 [lb_av] eCW1 ([facility]) Diastolic blood pressure 76 mm[Hg] 76 mm[Hg] eCW1 [facility]) Systolic blood pressure 136 mm[Hg] 136 mm[Hg] e CW1 ([facility]) Body mass index (BMI) [Ratio] 44.11 kg/m2 44.11 kg/m2 eCW1 ([facility]) Body height 63.5 [in_i] 63.5 [in_i] eCW1 ([facility]) Body mass index (BMI) [Ratio] 42.9 kg/m2 42.9 k g/m2 MEDENT ([facility]) Body height 64 [in_i] 64 [in_i] MEDENT ([facility]) 5'4" Body weight 250.00 [lb_av] 250.00 [lb_av] MEDEN T ([facility]) Body temperature 98.4 [degF] 98.4 [degF] MEDENT ([facility]) Oxygen saturation in Arterial blood by Pulse oximetry 95 % 95 % MEDENT ([facility]) Respiratory rate 16 /min 16 /min MEDENT ( [facility]) Heart rate 106 /min 106 /min MEDENT ([facility]) Diastolic blood pressure 86 mm[Hg] 86 mm[Hg] MEDENT ([facility]) Systolic blood pressure 126 mm[Hg] 126 mm[Hg] M EDENT ([facility], [facility]) Diastolic blood pressure 72 mm[Hg] 72 mm[Hg] eCW1 [facility] Systolic blood pressure 112 mm[Hg] 112 mm[Hg] e CW1 ([facility]) Body temperature 97.7 [degF] 97.7 [degF] eCW1 ( [facility]) Respiratory rate 20 /min 20 /min eCW1 ([facility]) Heart rate 94 /min 94 /min eCW1 ([facility]) Body mass index (BMI) [Ratio] 43.90 kg/m2 43.90 kg/m2 W1 ([facility]) Body height 63.5 [in_us] 63.5 [in_us] eCW1 [facility] Body weight Measured 251.8 [lb_av] 251.8 [lb_av ] eCW1 [facility] Patient Treatment Plan of Care Planned Activity Planned Date Details Description Data Source (s) Lancets - 02/19/2020 12:00:00 AM EST e CW1 ([facility]) Glucometer 02/19/2020 12:00:00 AM EST e CW1 ([facility]) Test Strips - 02/19/2020 12:00:00 AM EST eCW1 ([facility]) Lancets - 02/19/2020 12:00:00 AM EST e CW1 ([facility]) Glucometer 02/19/2020 12:00:00 AM EST e CW1 ([facility]) Test Strips - 02/19/2020 12:00:00 AM EST eCW1 ([facility]) Lancets - 02/19/2020 12:00:00 AM EST e CW1 ([facility]) Glucometer 02/19/2020 12:00:00 AM EST e CW1 ([facility]) Test Strips - 02/19/2020 12:00:00 AM EST eCW1 ([facility]) Glucometer 02/19/2020 12:00:00 AM EST e CW1 ([facility]) Lancets - 02/19/2020 12:00:00 AM EST e CW1 ([facility]) Test Strips - 02/19/2020 12:00:00 AM EST eCW1 ([facility]) Glucometer 02/19/2020 12:00:00 AM EST e CW1 ([facility]) Lancets - 02/19/2020 12:00:00 AM EST e CW1 ([facility]) Test Strips - 02/19/2020 12:00:00 AM EST eCW1 ([facility]) Lancets - 02/19/2020 12:00:00 AM EST e CW1 ([facility]) Glucometer 02/19/2020 12:00:00 AM EST e CW1 ([facility]) Test Strips - 02/19/2020 12:00:00 AM EST eCW1 ([facility]) Lancets - 02/19/2020 12:00:00 AM EST e CW1 ([facility]) Glucometer 02/19/2020 12:00:00 AM EST e CW1 ([facility]) Test Strips - 02/19/2020 12:00:00 AM EST eCW1 ([facility]) Lancets - 02/19/2020 12:00:00 AM EST e CW1 ([facility]) Glucometer 02/19/2020 12:00:00 AM EST e CW1 ([facility]) Test Strips - 02/19/2020 12:00:00 AM EST eCW1 ([facility]) Lancets - 02/19/2020 12:00:00 AM EST e CW1 ([facility]) Glucometer 02/19/2020 12:00:00 AM EST e CW1 ([facility]) Test Strips - 02/19/2020 12:00:00 AM EST eCW1 ([facility]) Tri-Sprintec 0.18/0.215/0.25 MG-35 MCG 09/30/2019 12:00:00 AM EDT eCW1 ([facility]) Tri-Sprintec 0.18/0.215/0.25 MG-35 MCG 09/30/2019 12:00:00 AM EDT eCW1 ([facility]) Tri-Sprintec 0.18/0.215/0.25 MG-35 MCG 09/30/2019 12:00:00 AM EDT eCW1 ([facility]) Tri-Sprintec 0.18/0.215/0.25 MG-35 MCG 09/30/2019 12:00:00 AM EDT eCW1 ([facility]) Tri-Sprintec 0.18/0.215/0.25 MG-35 MCG 09/30/2019 12:00:00 AM EDT eCW1 ([facility]) Tri-Sprintec 0.18/0.215/0.25 MG-35 MCG 09/30/2019 12:00:00 AM EDT eCW1 ([facility]) Tri-Sprintec 0.18/0.215/0.25 MG-35 MCG 09/30/2019 12:00:00 AM EDT eCW1 ([facility]) Tri-Sprintec 0.18/0.215/0.25 MG-35 MCG 09/30/2019 12:00:00 AM EDT eCW1 ([facility]) Tri-Sprintec 0.18/0.215/0.25 MG-35 MCG 09/30/2019 12:00:00 AM EDT eCW1 ([facility]) Tri-Sprintec 0.18/0.215/0.25 MG-35 MCG 09/30/2019 12:00:00 AM EDT eCW1 ([facility]) Tri-Sprintec 0.18/0.215/0.25 MG-35 MCG 09/30/2019 12:00:00 AM EDT eCW1 ([facility]) Tri-Sprintec 0.18/0.215/0.25 MG-35 MCG 09/30/2019 12:00:00 AM EDT eCW1 ([facility]) Tri-Sprintec 0.18/0.215/0.25 MG-35 MCG 09/30/2019 12:00:00 AM EDT eCW1 ([facility]) Tri-Sprintec 0.18/0.215/0.25 MG-35 MCG 09/30/2019 12:00:00 AM EDT eCW1 ([facility]) Tri-Sprintec 0.18/0.215/0.25 MG-35 MCG 09/30/2019 12:00:00 AM EDT eCW1 ([facility]) Tri-Sprintec 0.18/0.215/0.25 MG-35 MCG 09/30/2019 12:00:00 AM EDT eCW1 ([facility]) Tri-Sprintec 0.18/0.215/0.25 MG-35 MCG 09/30/2019 12:00:00 AM EDT eCW1 [facility]) medroxyprogesterone acetate 10 MG Oral Tablet [Provera ] 08/28/2019 12:00:00 AM EDT eCW1 ([facility]) medroxyprogesterone acetate 10 MG Oral Tablet [Provera ] 08/28/2019 12:00:00 AM EDT eCW1 ([facility]) medroxyprogesterone acetate 10 MG Oral Tablet [Provera ] 08/28/2019 12:00:00 AM EDT eCW1 ([facility]) medroxyprogesterone acetate 10 MG Oral Tablet [Provera ] 08/28/2019 12:00:00 AM EDT eCW1 ([facility]) medroxyprogesterone acetate 10 MG Oral Tablet [Provera ] 08/28/2019 12:00:00 AM EDT eCW1 ([facility]) medroxyprogesterone acetate 10 MG Oral Tablet [Provera ] 08/28/2019 12:00:00 AM EDT eCW1 ([facility]) medroxyprogesterone acetate 10 MG Oral Tablet [Provera ] 08/28/2019 12:00:00 AM EDT eCW1 ([facility]) medroxyprogesterone acetate 10 MG Oral Tablet [Provera ] 08/28/2019 12:00:00 AM EDT eCW1 ([facility]) medroxyprogesterone acetate 10 MG Oral Tablet [Provera ] 08/28/2019 12:00:00 AM EDT eCW1 ([facility]) medroxyprogesterone acetate 10 MG Oral Tablet [Provera ] 08/28/2019 12:00:00 AM EDT eCW1 ([facility]) medroxyprogesterone acetate 10 MG Oral Tablet [Provera ] 08/28/2019 12:00:00 AM EDT eCW1 ([facility]) BD Pen Needle Dary U/F 32G X 4 MM 07/17/2019 12:00:00 AM EDT [facility] BD Pen Needle Dary U/F 32G X 4 MM 07/17/2019 12:00:00 AM EDT eCW1 [facility]) BD Pen Needle Dary U/F 32G X 4 MM 07/17/2019 12:00:00 AM EDT eCW1 [facility]) BD Pen Needle Dary U/F 32G X 4 MM 07/17/2019 12:00:00 AM EDT eCW1 ([facility]) BD Pen Needle Dary U/F 32G X 4 MM 07/17/2019 12:00:00 AM EDT eCW1 ([facility])
--- OUTSIDE RECORDS SUMMARY | 2020-05-13 14:48 | CCD ---
Author Author [facility] ems Organization [facility] ems Address Unknown Phone Unavailable Care Team Providers Care Obstetrics Gynecology Md Name Role Phone Cher Briceno Unavailable PROBLEMS Type Condition ICD9-CM Code [id number] Code Onset Dates Condition S tatus SNOMED Code Notes Problem Scratch of left forearm, sequela S50.812S Active 806078685 Problem High risk sexual behavior Z72.51 Active 616929 004 Problem FDC current use of insulin Z79.4 Active 917179232 Problem Need for hepatitis B vaccination Z23 Active 669136270 Problem Gastroesophageal reflux disease without esophagitis K21.9 Active 469686091 Problem Type 2 diabetes mellitus without complications E11 .9 Active 571004674 Problem Prolonged menstrual cycle N92.1 Active 481424 003 Problem HIV exposure Z20.6 Active 104110496 Problem Mixed hyperlipidemia E78.2 Active 939038970 Problem Type 2 diabetes mellitus with unspecified complications E11.8 Active 49625619 Problem Anxiety F41.9 Active 75544701 Problem Cervical high risk HPV (human papillomavirus) test positiv e R87.810 Active 718141359 Problem FDC (current) use of insulin Z79.4 Activ e 194367029 Problem Routine gynecological examination Z01.419 Active 259426812 Problem Irregular menstrual cycle N92.6 Active 046546 07 Problem Candidiasis of vulva and vagina B37.3 Active 64330823 Problem Gastroesophageal reflux disease, esophagitis pre sence not specified K21.9 Active 027413576 Problem Post-traumatic osteoarthritis of left knee M17.32 Active 193584210 Problem Hx of abnormal cervical Pap smear Z87.42 Active 154181795 Problem Abnormal uterine bleeding N93.9 Active 646011 48699071 ALLERGIES Allergen (clinical drug ingredient) Drug/Non Drug Allergy do cumented on EMR Reaction Allergy Type Onset Date Status shrimp Anaphylaxis Non Drug Allergy Active floride Vomiting Non Drug Allergy Active ENCOUNTERS from 1981 to 2020-02-12 Encounter Location Date Provider Diagnosis [address] [address] Jan, Cher Briceno Anxiety F41.9 IMMUNIZATIONS Vaccine Route Administration Date Status TDAP 0.5mL (Boostrix) Unknown September 06, 2017 Administer ed Hepatitis B Adult 1.0mL (Engerix-B) IM Intramuscular Apr 02 9 Administered Hepatitis B Adult 1.0mL (Engerix-B) IM Intramuscular October 08 Administered Hepatitis B Adult 1.0mL (Engerix-B) IM Intramuscular September 13 Administered SOCIAL HISTORY Tobacco Use: Social History Observation Description Date Details (start date - stop date) Never Smoker Sex Assigned At : Social History Observation Description Sex Assigned At Unknown Education: Question Answer Notes Level of Education: Finished High School Audit Question Answer Notes Total Score: 3 Interpretation: Alcohol Education Amish: Question Answer Notes Amish 08 Nondenominational Sexual Hx: Question Answer Notes Had sex [...] Notes Start Da te End Date Status Provera 10 MG 1 tablet with food Orally Once a day for 10 days Aug, Active Admelog 100 UNIT/ML as directed Dx E11.9 MDD 40 Units Subcutaneous Twice daily per sliding scale for 30 Days Dec, Ac tive Alogliptin Benzoate 25 MG 1 tablet Orally Once a day for 30 days Active Aspir-81 81 MG 1 tablet Orally Once a day/states chewable kind Active Pantoprazole Sodium 40 MG 1 tablet Orally Daily for 30 days Active Tri-Sprintec 0.18/0.215/0.25 MG-35 MCG 1 tablet Orally Once a day for 28 day(s) 14 Sep, 2019 Active BD Insulin Syr Ultrafine II 31G X 5/16" 0.5 ML 1 syringe subcuta neously bid Dec, Active Alprazolam 0.5 MG 1 tablet Orally Twice a day for 30 days Active Tramadol HCl 50 MG (Schedule IV Drug) TAKE ONE TABLET BY MOUTH EVERY 4 HOURS NEEDED FOR PAIN MAXIMUM DAILY DOSE 4 Oral for 15 Active Atorvastatin Calcium 20 MG take one tablet by mouth ev palmer day Oral before bedtime for 30 days Active Basaglar KwikPen 100 UNIT/ML inject 80 units under the skin once daily Subcutaneous before bedtime for 30 days Active BD Pen Needle Dary U/F 32G X 4 MM as directed DX: E11. 9 Daily with basaglar for 90 day(s) Jun, Active PROCEDURES No Information RESULTS No Results REASON FOR VISIT Xanax refill MEDICAL (GENERAL) HISTORY Type Description Date Medical History DM Medical History depression /anxiety Medical History possible PCOS labs did not support Medical History facial hirsutism Medical History obesity Surgical History I&D right vaginal cyst x 3 Surgical History colposcopy with wen 01/28/18 Hospitalization History No Hospitalization history informati on Goals Section No Information Health Concerns No Information MEDICAL EQUIPMENT No Information MENTAL STATUS No Information FUNCTIONAL STATUS No Information ASSESSMENTS Encounter Date Diagnosis Assessment Notes Treatment Notes Treatm ent Clinical Notes Jan, Anxiety (ICD-10 - F41.9) PLAN OF TREATMENT Medication Medication Name Sig Start Date Stop Date Provera 10 MG 1 tablet with food Orally Once a day for 10 days Aug, Atorvastatin Calcium 20 MG take one tablet by mouth ev palmer day Oral before bedtime for 30 days Basaglar KwikPen 100 UNIT/ML inject 80 units under the skin once daily Subcutaneous before bedtime for 30 days Alprazolam 0.5 MG 1 tablet Orally Twice a day for 30 days Pantoprazole Sodium 40 MG 1 tablet Orally Daily for 30 days Tri-Sprintec 0.18/0.215/0.25 MG-35 MCG 1 tablet Orally Once a day for 28 day(s) Sep, Alogliptin Benzoate 25 MG 1 tablet Orally Once a day for 30 days Admelog 100 UNIT/ML as directed Dx E11.9 MDD 40 Units Subcutaneous Twice daily per sliding scale for 30 Days Dec, Next Appt Details Provider Name:Sumaya Jeff, 2020-02-19 09:00:00 AM, [address] [place], [address], Insurance Providers Payer Name Payer Address Payer Phone Insured Name Patient Relati onship to Insured Coverage Start Date Coverage End Date [facility] COMMUN[facility] PLAN [facility] [address] [facility] [phone] WEN JOHNSON self
--- OUTSIDE RECORDS SUMMARY | 2020-05-13 14:48 | CCD ---
Author Author [facility] ems Organization [facility] ems Address Unknown Phone Unavailable Care Team Providers Care Service Delivery Director Name Role Phone Sumaya Jeff Unavailable PROBLEMS Type Condition ICD9-CM Code [id number] Code Onset Dates Condition S tatus SNOMED Code Notes Problem longterm current use of insulin Z79.4 Active 525496213 Problem Type 2 diabetes mellitus without complications E11 .9 Active 519984584 Problem Prolonged menstrual cycle N92.1 Active 716692 003 Problem Irregular menstrual cycle N92.6 Active 038976 07 Problem Anxiety F41.9 Active 08556344 Problem Abnormal uterine bleeding N93.9 Active 315836 56592493 Problem HIV exposure Z20.6 Active 264083478 Problem Cervical high risk HPV (human papillomavirus) test positiv e R87.810 Active 615280423 Problem Gastroesophageal reflux disease without esophagitis K21.9 Active 335248445 Problem Mixed hyperlipidemia E78.2 Active 835816081 Problem Gastroesophageal reflux disease, esophagitis pre sence not specified K21.9 Active 305175521 Problem Post-traumatic osteoarthritis of left knee M17.32 Active 347470413 Problem Hx of abnormal cervical Pap smear Z87.42 Active 599109772 ALLERGIES Allergen (clinical drug ingredient) Drug/Non Drug Allergy do cumented on EMR Reaction Allergy Type Onset Date Status shrimp Anaphylaxis Non Drug Allergy Active floride Vomiting Non Drug Allergy Active metformin Metformin HCl([facility] Code:[address]-03) Diarrhea Drug Maged rgy Active ENCOUNTERS from 1981 to 2020-03-10 Encounter Location Date Provider Diagnosis [facility] [address] [place] [address] Feb, Sumaya Castellanoscharisma Anxiety F41.9 IMMUNIZATIONS Vaccine Route Administration Date [...] Notes Total Score: 1 Interpretation: Alcohol Education Caodaism: Question Answer Notes Caodaism 08 Voodoo Sexual Hx: Question Answer Notes Had sex [...] 40 MG 1 tablet Orally Daily Active Atorvastatin Calcium 20 MG take one [...] daily; Dx E11.9, Z79.4 0 Feb, Active Basaglar KwikPen 100 UNIT/ML inject 80 units under the skin once daily Subcutaneous before bedtime Acti ve Alprazolam 0.5 MG 1 tablet Orally Twice a day for 30 days Active PROCEDURES No Information RESULTS No Results REASON FOR VISIT Alprazolam 0.5 MG Tablet MEDICAL (GENERAL) HISTORY Type Description [...] Treatment Notes Treatm ent Clinical Notes Feb, Anxiety (ICD-10 - F41.9) PLAN OF TREATMENT [...] Orally Once a day for 90 days Michaelaglar KwikPen 100 UNIT/ML inject 80 units under the skin once daily Subcutaneous before bedtime Next Appt Details Provider Name:Sumaya Jeff, 2020-04-05 02:15:00 PM, [address] [place] [address], [phone], Insurance Providers Payer Name Payer Address Payer Phone Insured Name Patient Relati onship to Insured Coverage Start Date Coverage End Date [facility] [address] [facility] [phone] WEN JOHNSON self
--- OUTSIDE RECORDS SUMMARY | 2020-05-13 14:48 | CCD ---
Author Author [facility] Syst ems Organization [facility] ems Address Unknown Phone Unavailable Care Team Providers Care Hydro Plant Site Manager Name Role Phone Sumaya Jeff Unavailable PROBLEMS Type Condition ICD9-CM Code [id number] Code Onset Dates Condition S tatus SNOMED Code Notes Problem [facility] current use of insulin Z79.4 Active 298500288 Problem Type 2 diabetes mellitus without complications E11 .9 Active 035609904 Problem Prolonged menstrual cycle N92.1 Active 302797 003 Problem Irregular menstrual cycle N92.6 Active 622321 07 Problem Anxiety F41.9 Active 71923665 Problem Abnormal uterine bleeding N93.9 Active 519013 67440189 Problem HIV exposure Z20.6 Active 830677694 Problem Cervical high risk HPV (human papillomavirus) test positiv e R87.810 Active 069797706 Problem Gastroesophageal reflux disease without esophagitis K21.9 Active 779762902 Problem Mixed hyperlipidemia E78.2 Active 790491566 Problem Gastroesophageal reflux disease, esophagitis pre sence not specified K21.9 Active 318986219 Problem Post-traumatic osteoarthritis of left knee M17.32 Active 064443225 Problem Hx of abnormal cervical Pap smear Z87.42 Active 674205154 ALLERGIES Allergen (clinical drug ingredient) Drug/Non Drug Allergy do cumented on EMR Reaction Allergy Type Onset Date Status shrimp Anaphylaxis Non Drug Allergy Active floride Vomiting Non Drug Allergy Active metformin Metformin HCl([facility] Code:[address]-66) Diarrhea Drug Maged rgy Active ENCOUNTERS from 1981 to 2020-03-30 Encounter Location Date Provider Diagnosis [address] [address] 11 Mar, 2020 Sumaya Jeff IMMUNIZATIONS Vaccine Route [...] Notes Total Score: 1 Interpretation: Alcohol Education Evangelical: Question Answer Notes Evangelical 08 Hindu Sexual Hx: Question Answer Notes Had sex [...] Information RESULTS No Results REASON FOR VISIT pen needles MEDICAL (GENERAL) HISTORY Type Description Date Medical [...] Provider Name:Sumaya Jeff, 2020-04-05 02:15:00 PM, [address] [place], [address], Insurance Providers Payer Name Payer Address Payer Phone Insured Name Patient Relati onship to Insured Coverage Start Date Coverage End Date [facility] COMM[facility] PLAN [facility] [address] [facility] [phone] WEN JOHNSON self
[2020-05-13] MEDS ORDERED: ONDANSETRON 4 MG ORAL DISINTEGRATING TAB PO ONE (15:40)
[2020-05-13] MEDS ORDERED: ONDA4TAB6 PO (15:42)
--- OUTSIDE RECORDS SUMMARY | 2020-05-13 15:52 | CCD ---
Author Author [facility] Organization [facility] Address Unknown Phone Unavailable Care Team Providers Care Ice Platform Supervisor Name Role Phone AARON, LIA PA Unavailable [...] Unavailable AARON, LIA PA Unavailable Unavailable AARON, ILA PA Unavailable Unavailable Re-disclosure Warning The records [...] is protected by Article 27-F of the [facility] Public Health law. If you continue you may have access to information: Regarding HIV / AIDS; Provided by facilities licensed or operated by the [facility] Office of Mental Health; or Provided by the [facility] Office for People With Developmental Disabilities. If such information is present, then the following [facility] mandated warning applies: This information has [...] law may result in a fine or fdc sentence or both. A general authorization for the release of medical or other information is NOT sufficient authorization for further disc losure. Allergies and Adverse Reactions Type Description Substance Reaction Status Data Source(s ) shrimp shrimp shrimp Anaphylaxis Active eCW1 ([facility]) floride floride floride Vomiting Active eCW1 ([facility]) Family History Family Member Name Family Member Gender Family Member Status Date o f Status Description Data Source(s) Unknown Male Problem MEDENT ([facility]) Unknown Unknown Problem MEDENT ([facility]) Unknown Unknown Problem MEDENT ([facility]) Mom age 29 Encounters Encounter Providers Location Date Indications Data Source(s ) [place] [address] [facility] [address] 04/23/2020 12:00:00 AM EST eCW1 ([facility]) [place] [address] [facility] [place] [address] 04/12/2020 12:00:00 AM EST [facility]1 ([facility]) [place] [address] [facility] [place] [address] 04/05/2020 12:00:00 AM EST eCW1 ([facility]) [place] [address] [facility] [place] [address] 03/29/2020 12:00:00 AM EST eCW1 ([facility]) [place] [address] [facility] [place] [address] 03/24/2020 12:00:00 AM EST eCW1 ([facility]) [place] [address] [facility] [address] 03/10/2020 12:00:00 AM EST eCW1 ([facility]) [place] [address] [facility] [place] [address] 02/24/2020 12:00:00 AM EST eCW1 ([facility]) [place] [address] [facility] [place] [address] 02/23/2020 12:00:00 AM EST eCW1 ([facility]) [place]patient [address] [facility] [place] [address] 02/19/2020 12:00:00 AM EST eCW1 ([facility]) [place] [address] [facility] [place] [address] 02/11/2020 12:00:00 AM EST eCW1 ([facility]) [place] [address] [facility] [address] 01/22/2020 12:00:00 AM EST eCW1 ([facility]) [place] [address] [facility] [address] 01/13/2020 12:00:00 AM EDT eCW1 ([facility]) [place] [address] [facility] [address] 12/30/2019 12:00:00 AM EDT eCW1 ([facility]) [place] [address] [facility] [address] 12/29/2019 12:00:00 AM EDT eCW1 ([facility]) [place] [address] [facility] [address] 12/25/2019 12:00:00 AM EDT eCW1 ([facility]) [place] [address] [facility] [address] 10/07/2019 12:00:00 AM EDT eCW1 ([facility]) [place] [address] [facility] [address] 09/30/2019 12:00:00 AM EDT eCW1 ([facility]) [place] [address] [facility] [address] 09/04/2019 12:00:00 AM EDT eCW1 ([facility]) [place]patient [address] [facility] [address] 08/28/2019 12:00:00 AM EDT eCW1 ([facility]) Unknown [address] [facility] [address] 08/27/2019 12:00:00 AM EDT eCW1 ([facility]) Unknown [address] [facility] [address] 08/19/2019 12:00:00 AM EDT eCW1 ([facility]) Outpatient Attender: LIA de luna 08/18/2019 04:00:00 PM EDT MEDENT ([facility] [address] [place] [address], [place] [address] 07/18/2019 12:00:00 AM EDT eCW1 ([facility]) [facility] [address] [place] [address], [place] [address] 07/17/2019 12:00:00 AM EDT eCW1 ([facility]) [address] [address] 07/03/2019 12:00:00 AM EDT eCW1 ([facility]) [address] [address] 06/26/2019 12:00:00 AM EDT eCW1 ([facility]) [facility] [address] [place] [address] 06/23/2019 12:00:00 AM EDT eCW1 ([facility]) [address] [address] 06/20/2019 12:00:00 AM EDT eCW1 ([facility]) [address] [address] 06/09/2019 12:00:00 AM EDT eCW1 ([facility]) [address] [address] 06/02/2019 12:00:00 AM EDT eCW1 ([facility]) [address] [place] [address] 05/27/2019 12:00:00 AM EDT eCW1 ([facility]) [address] [address] 05/27/2019 12:00:00 AM EDT eCW1 ([facility]) [address] [address] 05/21/2019 12:00:00 AM EST eCW1 ([facility]) [address] [address] 05/19/2019 12:00:00 AM EST eCW1 ([facility]) [address] [place] [address] 05/08/2019 12:00:00 AM EST eCW1 ([facility]) [address] [address] 05/06/2019 12:00:00 AM EST eCW1 ([facility]) [address] [address] 04/24/2019 12:00:00 AM EST eCW1 ([facility]) [facility] [address] [place] [address] 04/03/2019 12:00:00 AM EST eCW1 ([facility]) [address] [address] 04/03/2019 12:00:00 AM EST eCW1 ([facility]) [address] [address] 03/25/2019 12:00:00 AM EST eCW1 ([facility]) [address] [address] 03/24/2019 12:00:00 AM EST eCW1 ([facility]) [address] [address] 03/21/2019 12:00:00 AM EST eCW1 ([facility]) Medications Medication Brand Name Start Date Product Form Dose Route Admi nistrative Instructions Pharmacy Instructions Status Indications Reaction Description Data Source(s) Glucometer UNK 02/19/2020 12:00:00 AM EST active Glucometer eCW1 ([facility]) Test Strips - UNK 02/19/2020 12:00:00 AM EST acti ve Test Strips - eCW1 ([facility]) Test Strips - UNK 02/19/2020 12:00:00 AM EST acti ve Test Strips - eCW1 ([facility]) Test Strips - UNK 02/19/2020 12:00:00 AM EST acti ve Test Strips - eCW1 ([facility]) Test Strips - UNK 02/19/2020 12:00:00 AM EST acti ve Test Strips - eCW1 ([facility]) Glucometer UNK 02/19/2020 12:00:00 AM EST active Glucometer eCW1 ([facility]) Lancets - Lancets - 02/19/2020 12:00:00 AM EST act reggie Lancets - eCW1 ([facility]) Lancets - Lancets - 02/19/2020 12:00:00 AM EST act reggie Lancets - eCW1 ([facility]) Lancets - Lancets - 02/19/2020 12:00:00 AM EST act reggie Lancets - eCW1 ([facility]) Test Strips - UNK 02/19/2020 12:00:00 AM EST acti ve Test Strips - eCW1 ([facility]) Glucometer UNK 02/19/2020 12:00:00 AM EST active Glucometer eCW1 ([facility]) Glucometer UNK 02/19/2020 12:00:00 AM EST active Glucometer eCW1 ([facility]) Glucometer UNK 02/19/2020 12:00:00 AM EST active Glucometer eCW1 ([facility]) Lancets - Lancets - 02/19/2020 12:00:00 AM EST act reggie Lancets - eCW1 ([facility]) Lancets - Lancets - 02/19/2020 12:00:00 AM EST act reggie Lancets - eCW1 ([facility]) Glucometer UNK 02/19/2020 12:00:00 AM EST active Glucometer eCW1 ([facility]) Glucometer UNK 02/19/2020 12:00:00 AM EST active Glucometer eCW1 ([facility]) Lancets - Lancets - 02/19/2020 12:00:00 AM EST act reggie Lancets - eCW1 ([facility]) Glucometer UNK 02/19/2020 12:00:00 AM EST active Glucometer eCW1 ([facility]) Lancets - Lancets - 02/19/2020 12:00:00 AM EST act reggie Lancets - eCW1 ([facility]) Lancets - Lancets - 02/19/2020 12:00:00 AM EST act reggie Lancets - eCW1 ([facility]) Test Strips - UNK 02/19/2020 12:00:00 AM EST acti ve Test Strips - eCW1 ([facility]) Test Strips - UNK 02/19/2020 12:00:00 AM EST acti ve Test Strips - eCW1 ([facility]) Glucometer UNK 02/19/2020 12:00:00 AM EST active Glucometer eCW1 ([facility]) Test Strips - UNK 02/19/2020 12:00:00 AM EST acti ve Test Strips - eCW1 ([facility]) Lancets - Lancets - 02/19/2020 12:00:00 AM EST act reggie Lancets - eCW1 ([facility]) Test Strips - UNK 02/19/2020 12:00:00 AM EST acti ve Test Strips - eCW1 ([facility]) Tri-Sprintec 0.18/0.215/0.25 MG-35 MCG Tri-Sprintec 0.18/0.2 15/0.25 MG-35 MCG 09/30/2019 12:00:00 AM EDT 1.0 {tablet} active Tri-Sprintec 0.18/0.215/0.25 MG-35 MCG eCW1 ([facility]) Tri-Sprintec 0.18/0.215/0.25 MG-35 MCG Tri-Sprintec 0.18/0.2 15/0.25 MG-35 MCG 09/30/2019 12:00:00 AM EDT 1.0 {tablet} active Tri-Sprintec 0.18/0.215/0.25 MG-35 MCG eCW1 ([facility]) Tri-Sprintec 0.18/0.215/0.25 MG-35 MCG Tri-Sprintec 0.18/0.2 15/0.25 MG-35 MCG 09/30/2019 12:00:00 AM EDT 1.0 {tablet} active Tri-Sprintec 0.18/0.215/0.25 MG-35 MCG eCW1 ([facility]) Tri-Sprintec 0.18/0.215/0.25 MG-35 MCG Tri-Sprintec 0.18/0.2 15/0.25 MG-35 MCG 09/30/2019 12:00:00 AM EDT 1.0 {tablet} active Tri-Sprintec 0.18/0.215/0.25 MG-35 MCG eCW1 ([facility]) Tri-Sprintec 0.18/0.215/0.25 MG-35 MCG Tri-Sprintec 0.18/0.2 15/0.25 MG-35 MCG 09/30/2019 12:00:00 AM EDT 1.0 {tablet} active Tri-Sprintec 0.18/0.215/0.25 MG-35 MCG eCW1 ([facility]) Tri-Sprintec 0.18/0.215/0.25 MG-35 MCG Tri-Sprintec 0.18/0.2 15/0.25 MG-35 MCG 09/30/2019 12:00:00 AM EDT 1.0 {tablet} active Tri-Sprintec 0.18/0.215/0.25 MG-35 MCG eCW1 ([facility]) Tri-Sprintec 0.18/0.215/0.25 MG-35 MCG Tri-Sprintec 0.18/0.2 15/0.25 MG-35 MCG 09/30/2019 12:00:00 AM EDT 1.0 {tablet} active Tri-Sprintec 0.18/0.215/0.25 MG-35 MCG eCW1 ([facility]) Tri-Sprintec 0.18/0.215/0.25 MG-35 MCG Tri-Sprintec 0.18/0.2 15/0.25 MG-35 MCG 09/30/2019 12:00:00 AM EDT 1.0 {tablet} active Tri-Sprintec 0.18/0.215/0.25 MG-35 MCG eCW1 ([facility]) Tri-Sprintec 0.18/0.215/0.25 MG-35 MCG Tri-Sprintec 0.18/0.2 15/0.25 MG-35 MCG 09/30/2019 12:00:00 AM EDT 1.0 {tablet} active Tri-Sprintec 0.18/0.215/0.25 MG-35 MCG eCW1 ([facility]) Tri-Sprintec 0.18/0.215/0.25 MG-35 MCG Tri-Sprintec 0.18/0.2 15/0.25 MG-35 MCG 09/30/2019 12:00:00 AM EDT 1.0 {tablet} active Tri-Sprintec 0.18/0.215/0.25 MG-35 MCG eCW1 ([facility]) Tri-Sprintec 0.18/0.215/0.25 MG-35 MCG Tri-Sprintec 0.18/0.2 15/0.25 MG-35 MCG 09/30/2019 12:00:00 AM EDT 1.0 {tablet} active Tri-Sprintec 0.18/0.215/0.25 MG-35 MCG eCW1 ([facility]) Tri-Sprintec 0.18/0.215/0.25 MG-35 MCG Tri-Sprintec 0.18/0.2 15/0.25 MG-35 MCG 09/30/2019 12:00:00 AM EDT 1.0 {tablet} active Tri-Sprintec 0.18/0.215/0.25 MG-35 MCG eCW1 ([facility]) Tri-Sprintec 0.18/0.215/0.25 MG-35 MCG Tri-Sprintec 0.18/0.2 15/0.25 MG-35 MCG 09/30/2019 12:00:00 AM EDT 1.0 {tablet} active Tri-Sprintec 0.18/0.215/0.25 MG-35 MCG eCW1 ([facility]) Tri-Sprintec 0.18/0.215/0.25 MG-35 MCG Tri-Sprintec 0.18/0.2 15/0.25 MG-35 MCG 09/30/2019 12:00:00 AM EDT 1.0 {tablet} active Tri-Sprintec 0.18/0.215/0.25 MG-35 MCG eCW1 ([facility]) Tri-Sprintec 0.18/0.215/0.25 MG-35 MCG Tri-Sprintec 0.18/0.2 15/0.25 MG-35 MCG 09/30/2019 12:00:00 AM EDT 1.0 {tablet} active Tri-Sprintec 0.18/0.215/0.25 MG-35 MCG eCW1 ([facility]) Tri-Sprintec 0.18/0.215/0.25 MG-35 MCG Tri-Sprintec 0.18/0.2 15/0.25 MG-35 MCG 09/30/2019 12:00:00 AM EDT 1.0 {tablet} active Tri-Sprintec 0.18/0.215/0.25 MG-35 MCG eCW1 ([facility]) Tri-Sprintec 0.18/0.215/0.25 MG-35 MCG Tri-Sprintec 0.18/0.2 15/0.25 MG-35 MCG 09/30/2019 12:00:00 AM EDT 1.0 {tablet} active Tri-Sprintec 0.18/0.215/0.25 MG-35 MCG eCW1 ([facility]) medroxyprogesterone acetate 10 MG Oral Tablet [Provera ] Provera 10 MG Provera 10 MG 08/28/2019 12:00:00 AM EDT 1.0 {tablet_with_food} active Provera 10 MG eCW1 ([facility]) medroxyprogesterone acetate 10 MG Oral Tablet [Provera ] Provera 10 MG Provera 10 MG 08/28/2019 12:00:00 AM EDT 1.0 {tablet_with_food} active Provera 10 MG eCW1 ([facility]) medroxyprogesterone acetate 10 MG Oral Tablet [Provera ] Provera 10 MG Provera 10 MG 08/28/2019 12:00:00 AM EDT 1.0 {tablet_with_food} active Provera 10 MG eCW1 ([facility]) medroxyprogesterone acetate 10 MG Oral Tablet [Provera ] Provera 10 MG Provera 10 MG 08/28/2019 12:00:00 AM EDT 1.0 {tablet_with_food} active Provera 10 MG eCW1 ([facility]) medroxyprogesterone acetate 10 MG Oral Tablet [Provera ] Provera 10 MG Provera 10 MG 08/28/2019 12:00:00 AM EDT 1.0 {tablet_with_food} active Provera 10 MG eCW1 ([facility]) medroxyprogesterone acetate 10 MG Oral Tablet [Provera ] Provera 10 MG Provera 10 MG 08/28/2019 12:00:00 AM EDT 1.0 {tablet_with_food} active Provera 10 MG eCW1 ([facility]) medroxyprogesterone acetate 10 MG Oral Tablet [Provera ] Provera 10 MG Provera 10 MG 08/28/2019 12:00:00 AM EDT 1.0 {tablet_with_food} active Provera 10 MG eCW1 ([facility]) medroxyprogesterone acetate 10 MG Oral Tablet [Provera ] Provera 10 MG Provera 10 MG 08/28/2019 12:00:00 AM EDT 1.0 {tablet_with_food} active Provera 10 MG eCW1 ([facility]) medroxyprogesterone acetate 10 MG Oral Tablet [Provera ] Provera 10 MG Provera 10 MG 08/28/2019 12:00:00 AM EDT 1.0 {tablet_with_food} active Provera 10 MG eCW1 ([facility]) medroxyprogesterone acetate 10 MG Oral Tablet [Provera ] Provera 10 MG Provera 10 MG 08/28/2019 12:00:00 AM EDT 1.0 {tablet_with_food} active Provera 10 MG eCW1 ([facility]) medroxyprogesterone acetate 10 MG Oral Tablet [Provera ] Provera 10 MG Provera 10 MG 08/28/2019 12:00:00 AM EDT 1.0 {tablet_with_food} active Provera 10 MG eCW1 ([facility]) BD Pen Needle Dary U/F 32G X 4 MM BD Pen Needle Dary U/F 32G X 4 MM 07/17/2019 12:00:00 AM EDT active BD Pen N eedle Dary U/F 32G X 4 MM eCW1 ([facility]) BD Pen Needle Dary U/F 32G X 4 MM BD Pen Needle Dary U/F 32G X 4 MM 07/17/2019 12:00:00 AM EDT active BD Pen N eedle Dary U/F 32G X 4 MM eCW1 ([facility]) BD Pen Needle Dary U/F 32G X 4 MM BD Pen Needle Dary U/F 32G X 4 MM 07/17/2019 12:00:00 AM EDT active BD Pen N eedle Dary U/F 32G X 4 MM eCW1 ([facility]) BD Pen Needle Dary U/F 32G X 4 MM BD Pen Needle Dary U/F 32G X 4 MM 07/17/2019 12:00:00 AM EDT active BD Pen N eedle Dary U/F 32G X 4 MM eCW1 ([facility]) BD Pen Needle Dary U/F 32G X 4 MM BD Pen Needle Dary U/F 32G X 4 MM 07/17/2019 12:00:00 AM EDT active as direc robin eCW1 ([facility]) BD Pen Needle Dary U/F 32G X 4 MM BD Pen Needle Dary U/F 32G X 4 MM 07/17/2019 12:00:00 AM EDT active BD Pen N eedle Dary U/F 32G X 4 MM eCW1 ([facility]) BD Pen Needle Dary U/F 32G X 4 MM BD Pen Needle Dary U/F 32G X 4 MM 07/17/2019 12:00:00 AM EDT active BD Pen N eedle Dary U/F 32G X 4 MM eCW1 ([facility]) BD Pen Needle Dary U/F 32G X 4 MM BD Pen Needle Dary U/F 32G X 4 MM 07/17/2019 12:00:00 AM EDT active BD Pen N eedle Dary U/F 32G X 4 MM eCW1 ([facility]) BD Pen Needle Dary U/F 32G X 4 MM BD Pen Needle Dary U/F 32G X 4 MM 07/17/2019 12:00:00 AM EDT active BD Pen N eedle Dary U/F 32G X 4 MM eCW1 ([facility]) BD Pen Needle Dary U/F 32G X 4 MM BD Pen Needle Dary U/F 32G X 4 MM 07/17/2019 12:00:00 AM EDT active BD Pen N eedle Dary U/F 32G X 4 MM eCW1 ([facility]) BD Pen Needle Dary U/F 32G X 4 MM BD Pen Needle Dary U/F 32G X 4 MM 07/17/2019 12:00:00 AM EDT active BD Pen N eedle Dary U/F 32G X 4 MM eCW1 ([facility]) BD Pen Needle Dary U/F 32G X 4 MM BD Pen Needle Dary U/F 32G X 4 MM 07/17/2019 12:00:00 AM EDT active BD Pen N eedle Dary U/F 32G X 4 MM eCW1 ([facility]) BD Pen Needle Dary U/F 32G X 4 MM BD Pen Needle Dary U/F 32G X 4 MM 07/17/2019 12:00:00 AM EDT active BD Pen N eedle Dary U/F 32G X 4 MM eCW1 ([facility]) BD Pen Needle Dary U/F 32G X 4 MM BD Pen Needle Dary U/F 32G X 4 MM 07/17/2019 12:00:00 AM EDT active BD Pen N eedle Dary U/F 32G X 4 MM eCW1 ([facility]) BD Pen Needle Dary U/F 32G X 4 MM BD Pen Needle Dary U/F 32G X 4 MM 07/17/2019 12:00:00 AM EDT active BD Pen N eedle Dary U/F 32G X 4 MM eCW1 ([facility]) BD Pen Needle Dary U/F 32G X 4 MM BD Pen Needle Dary U/F 32G X 4 MM 07/17/2019 12:00:00 AM EDT active BD Pen N eedle Dary U/F 32G X 4 MM eCW1 ([facility]) BD Pen Needle Dary U/F 32G X 4 MM BD Pen Needle Dary U/F 32G X 4 MM 07/17/2019 12:00:00 AM EDT active BD Pen N eedle Dary U/F 32G X 4 MM eCW1 ([facility]) BD Pen Needle Dary U/F 32G X 4 MM BD Pen Needle Dary U/F 32G X 4 MM 07/17/2019 12:00:00 AM EDT active BD Pen N eedle Dary U/F 32G X 4 MM eCW1 ([facility]) BD Pen Needle Dary U/F 32G X 4 MM BD Pen Needle Dary U/F 32G X 4 MM 07/17/2019 12:00:00 AM EDT active BD Pen N eedle Dary U/F 32G X 4 MM eCW1 ([facility]) BD Pen Needle Dary U/F 32G X 4 MM BD Pen Needle Dary U/F 32G X 4 MM 07/17/2019 12:00:00 AM EDT active BD Pen N eedle Dary U/F 32G X 4 MM eCW1 ([facility]) BD Pen Needle Dary U/F 32G X 4 MM BD Pen Needle Dary U/F 32G X 4 MM 07/17/2019 12:00:00 AM EDT active BD Pen N eedle Dary U/F 32G X 4 MM eCW1 ([facility]) Insurance Providers Payer name Policy type / Coverage type Policy ID Covered democrat ID Covered democrat's relationship to rehman Policy Rehman Plan Information [facility] COMMUNITY PLAN [facility] [id number] [facility] Community Plan Commercial [id number] Self [id number] ANSI-Medicaid [id number] [facility] Community Plan Commercial [id number] Self [id number] ANSI-Medicaid [id number] ANSI-Medicaid [id number] ANSI-Medicaid [id number] ANSI-Medicaid [id number] ANSI-Medicaid [id number] [facility] COMMUNITY PLAN MCDO [id number] SP [id number] [facility] Community Plan Commercial [id number] Self [id number] [facility] Community Plan Commercial [id number] Self [id number] ANSI-Medicaid [id number] [facility] Community Plan Commercial [id number] Self [id number] [facility] O [id number] S [id number] [facility] Community Plan Commercial [id number] Self [id number] [facility] Community Plan Commercial [id number] Self [id number] [facility] Community Plan Commercial [id number] Self [id number] [facility] Health Maintenance Organization (HMO) [id number] Self [id number] [facility] Health Maintenance Organization (HMO) Self MEDICAID [id number] SP [id number] SELF PAY UNAVAILABLE SP UNAVAILA BLE SELF PAY P UNAVAILABLE S UNAVAILA BLE [facility] [id number] SP [id number] Problems, Conditions, and Diagnoses Code Display Name Description Problem Type Effective Dates Data Source(s) Z01.419 [id number] Routine gynecological examination Problem 09/18/2019 12:00:00 AM EDT eCW1 ([facility]) R87.810 [id number] Cervical high risk HPV (human pa pillomavirus) test positive Problem 08/28/2019 12:00:00 AM EDT eCW1 ([facility]) N93.9 [id number] Abnormal uterine bleeding Problem 08/28/2019 12:00:00 AM EDT eCW1 ([facility]) Results ID Date Data Source [id number] 08/18/2019 04:30:00 PM EDT [facility] Name Value Range Interpretation Code Description Data Heide rce(s) Supporting Document(s) Bacteria identified in Urine by Culture Laboratory test result [facility] ([facility]) No Rx ID Date Data Source [id number] 05/08/2019 12:00:00 AM EST eCW1 ([facility]) Name Value Range Interpretation Code Description Data Ehide rce(s) Supporting Document(s) Microalbumin/Creatinine [Ratio] in Urine 12.9 0.0-30.0 BRANDY/CREAT RATIO eCW1 ([facility]) Microalbumin/Creatinine [Mass Ratio] in Urine 119.0 CREATININE, URINE eCW1 ([facility]) Albumin/Creatinine [Mass Ratio] in Urine 15.4 MALB URINE SIEMENS eCW1 ([facility]) ID Date Data Source [id number] 05/08/2019 12:00:00 AM EST eCW1 ([facility]) Name Value Range Interpretation Code Description Data Heide rce(s) Supporting Document(s) Hemoglobin A1c/Hemoglobin.total in Blood 9.4 HEMOGLOBIN A1c eCW1 ([facility]) Procedure Social History Code Duration Value Status Description Data Source(s ) Smoking 02/19/2020 12:00:00 AM EST Never Smoker completed Never S moker eCW1 ([facility]) Smoking 02/19/2020 12:00:00 AM EST Never Smoker completed Never S moker eCW1 ([facility]) Smoking 02/19/2020 12:00:00 AM EST Never Smoker completed Never S moker eCW1 ([facility]) Smoking 02/19/2020 12:00:00 AM EST Never Smoker completed Never S moker eCW1 ([facility]) Smoking 02/19/2020 12:00:00 AM EST Never Smoker completed Never S moker eCW1 ([facility]) Smoking 02/19/2020 12:00:00 AM EST Never Smoker completed Never S moker eCW1 ([facility]) Smoking 02/19/2020 12:00:00 AM EST Never Smoker completed Never S moker eCW1 ([facility]) Smoking 02/19/2020 12:00:00 AM EST Never Smoker completed Never S moker eCW1 ([facility]) Smoking 02/19/2020 12:00:00 AM EST Never Smoker completed Never S moker eCW1 ([facility]) Smoking 09/18/2019 12:00:00 AM EDT Never Smoker completed Never S moker eCW1 ([facility]) Smoking 09/18/2019 12:00:00 AM EDT Never Smoker completed Never S moker eCW1 ([facility]) Smoking 09/18/2019 12:00:00 AM EDT Never Smoker completed Never S moker eCW1 ([facility]) Smoking 09/18/2019 12:00:00 AM EDT Never Smoker completed Never S moker eCW1 ([facility]) Smoking 09/18/2019 12:00:00 AM EDT Never Smoker completed Never S moker eCW1 ([facility]) Smoking 09/18/2019 12:00:00 AM EDT Never Smoker completed Never S moker eCW1 ([facility]) Smoking 09/18/2019 12:00:00 AM EDT Never Smoker completed Never S moker eCW1 ([facility]) Smoking 09/18/2019 12:00:00 AM EDT Never Smoker completed Never S moker eCW1 ([facility]) Smoking 08/28/2019 12:00:00 AM EDT Never Smoker completed Never S moker eCW1 ([facility]) Smoking 08/28/2019 12:00:00 AM EDT Never Smoker completed Never S moker eCW1 ([facility]) Smoking 08/28/2019 12:00:00 AM EDT Never Smoker completed Never S moker eCW1 ([facility]) Vital Signs ID Date Data Source UNK Name Value Range Interpretation Code Description Data Source(s) Diastolic blood pressure 88 mm[Hg] 88 mm[Hg] eCW1 ([facility]) Systolic blood pressure 146 mm[Hg] 146 mm[Hg] e CW1 ([facility]) Body temperature 98 [degF] 98 [degF] [facility] Respiratory rate 20 /min 20 /min eCW1 ([facility]) Heart rate 103 /min 103 /min eCW1 ([facility]) Body mass index (BMI) [Ratio] 45.16 kg/m2 45.16 kg/m2 W1 ([facility]) Body height 63.5 [in_i] 63.5 [in_i] eCW1 ([facility]) Body weight 259 [lb_av] 259 [lb_av] eCW1 ([facility]) Body weight 253 [lb_av] 253 [lb_av] eCW1 ([facility]) Diastolic blood pressure 76 mm[Hg] 76 mm[Hg] eCW1 ([facility]) Systolic blood pressure 136 mm[Hg] 136 mm[Hg] e CW1 ([facility]) Body mass index (BMI) [Ratio] 44.11 kg/m2 44.11 kg/m2 eCW1 ([facility]) Body height 63.5 [in_i] 63.5 [in_i] eCW1 ([facility]) Body mass index (BMI) [Ratio] 42.9 kg/m2 42.9 k g/m2 MEDENT ([facility], [facility]) Body height 64 [in_i] 64 [in_i] MEDENT ([facility], [facility]) 5'4" Body weight 250.00 [lb_av] 250.00 [lb_av] MEDEN T ([facility], [facility]) Body temperature 98.4 [degF] 98.4 [degF] MEDENT ([facility], [facility]) Oxygen saturation in Arterial blood by Pulse oximetry 95 % 95 % MEDENT ([facility], [facility]) Respiratory rate 16 /min 16 /min MEDENT ( [facility], [facility]) Heart rate 106 /min 106 /min MEDENT ([facility], [facility]) Diastolic blood pressure 86 mm[Hg] 86 mm[Hg] MEDENT ([facility], [facility]) Systolic blood pressure 126 mm[Hg] 126 mm[Hg] M EDENT ([facility], [facility]) Diastolic blood pressure 72 mm[Hg] 72 mm[Hg] eCW1 ([facility]) Systolic blood pressure 112 mm[Hg] 112 mm[Hg] e CW1 ([facility]) Body temperature 97.7 [degF] 97.7 [degF] eCW1 ( [facility]) Respiratory rate 20 /min 20 /min eCW1 ([facility]) Heart rate 94 /min 94 /min eCW1 ([facility]) Body mass index (BMI) [Ratio] 43.90 kg/m2 43.90 kg/m2 W1 ([facility]) Body height 63.5 [in_us] 63.5 [in_us] eCW1 ([facility]) Body weight Measured 251.8 [lb_av] 251.8 [lb_av ] eCW1 ([facility]) Patient Treatment Plan of Care Planned Activity Planned Date Details Description Data Source (s) Lancets - 02/19/2020 12:00:00 AM EST e CW1 ([facility]) Glucometer 02/19/2020 12:00:00 AM EST e CW1 ([facility]) Test Strips - 02/19/2020 12:00:00 AM EST eCW1 ([facility]) Lancets - 02/19/2020 12:00:00 AM EST e CW1 ([facility]) Glucometer 02/19/2020 12:00:00 AM EST e CW1 ([facility]) Test Strips - 02/19/2020 12:00:00 AM EST eCW1 ([facility]) Lancets - 02/19/2020 12:00:00 AM EST e CW1 ([facility]) Glucometer 02/19/2020 12:00:00 AM EST e CW1 ([facility]) Test Strips - 02/19/2020 12:00:00 AM EST eCW1 ([facility]) Glucometer 02/19/2020 12:00:00 AM EST e CW1 ([facility]) Lancets - 02/19/2020 12:00:00 AM EST e CW1 ([facility]) Test Strips - 02/19/2020 12:00:00 AM EST eCW1 ([facility]) Glucometer 02/19/2020 12:00:00 AM EST e CW1 ([facility]) Lancets - 02/19/2020 12:00:00 AM EST e CW1 ([facility]) Test Strips - 02/19/2020 12:00:00 AM EST eCW1 ([facility]) Lancets - 02/19/2020 12:00:00 AM EST e CW1 ([facility]) Glucometer 02/19/2020 12:00:00 AM EST e CW1 ([facility]) Test Strips - 02/19/2020 12:00:00 AM EST eCW1 ([facility]) Lancets - 02/19/2020 12:00:00 AM EST e CW1 ([facility]) Glucometer 02/19/2020 12:00:00 AM EST e CW1 ([facility]) Test Strips - 02/19/2020 12:00:00 AM EST eCW1 ([facility]) Lancets - 02/19/2020 12:00:00 AM EST e CW1 ([facility]) Glucometer 02/19/2020 12:00:00 AM EST e CW1 ([facility]) Test Strips - 02/19/2020 12:00:00 AM EST eCW1 ([facility]) Lancets - 02/19/2020 12:00:00 AM EST e CW1 ([facility]) Glucometer 02/19/2020 12:00:00 AM EST e CW1 ([facility]) Test Strips - 02/19/2020 12:00:00 AM EST eCW1 ([facility]) Tri-Sprintec 0.18/0.215/0.25 MG-35 MCG 09/30/2019 12:00:00 AM EDT eCW1 ([facility]) Tri-Sprintec 0.18/0.215/0.25 MG-35 MCG 09/30/2019 12:00:00 AM EDT eCW1 ([facility]) Tri-Sprintec 0.18/0.215/0.25 MG-35 MCG 09/30/2019 12:00:00 AM EDT eCW1 ([facility]) Tri-Sprintec 0.18/0.215/0.25 MG-35 MCG 09/30/2019 12:00:00 AM EDT eCW1 ([facility]) Tri-Sprintec 0.18/0.215/0.25 MG-35 MCG 09/30/2019 12:00:00 AM EDT eCW1 ([facility]) Tri-Sprintec 0.18/0.215/0.25 MG-35 MCG 09/30/2019 12:00:00 AM EDT eCW1 ([facility]) Tri-Sprintec 0.18/0.215/0.25 MG-35 MCG 09/30/2019 12:00:00 AM EDT eCW1 ([facility]) Tri-Sprintec 0.18/0.215/0.25 MG-35 MCG 09/30/2019 12:00:00 AM EDT eCW1 ([facility]) Tri-Sprintec 0.18/0.215/0.25 MG-35 MCG 09/30/2019 12:00:00 AM EDT eCW1 ([facility]) Tri-Sprintec 0.18/0.215/0.25 MG-35 MCG 09/30/2019 12:00:00 AM EDT eCW1 ([facility]) Tri-Sprintec 0.18/0.215/0.25 MG-35 MCG 09/30/2019 12:00:00 AM EDT eCW1 ([facility]) Tri-Sprintec 0.18/0.215/0.25 MG-35 MCG 09/30/2019 12:00:00 AM EDT eCW1 ([facility]) Tri-Sprintec 0.18/0.215/0.25 MG-35 MCG 09/30/2019 12:00:00 AM EDT eCW1 ([facility]) Tri-Sprintec 0.18/0.215/0.25 MG-35 MCG 09/30/2019 12:00:00 AM EDT eCW1 ([facility]) Tri-Sprintec 0.18/0.215/0.25 MG-35 MCG 09/30/2019 12:00:00 AM EDT eCW1 ([facility]) Tri-Sprintec 0.18/0.215/0.25 MG-35 MCG 09/30/2019 12:00:00 AM EDT eCW1 ([facility]) Tri-Sprintec 0.18/0.215/0.25 MG-35 MCG 09/30/2019 12:00:00 AM EDT eCW1 ([facility]) medroxyprogesterone acetate 10 MG Oral Tablet [Provera ] 08/28/2019 12:00:00 AM EDT eCW1 ([facility]) medroxyprogesterone acetate 10 MG Oral Tablet [Provera ] 08/28/2019 12:00:00 AM EDT eCW1 ([facility]) medroxyprogesterone acetate 10 MG Oral Tablet [Provera ] 08/28/2019 12:00:00 AM EDT eCW1 ([facility]) medroxyprogesterone acetate 10 MG Oral Tablet [Provera ] 08/28/2019 12:00:00 AM EDT eCW1 ([facility]) medroxyprogesterone acetate 10 MG Oral Tablet [Provera ] 08/28/2019 12:00:00 AM EDT eCW1 ([facility]) medroxyprogesterone acetate 10 MG Oral Tablet [Provera ] 08/28/2019 12:00:00 AM EDT eCW1 ([facility]) medroxyprogesterone acetate 10 MG Oral Tablet [Provera ] 08/28/2019 12:00:00 AM EDT eCW1 ([facility]) medroxyprogesterone acetate 10 MG Oral Tablet [Provera ] 08/28/2019 12:00:00 AM EDT eCW1 ([facility]) medroxyprogesterone acetate 10 MG Oral Tablet [Provera ] 08/28/2019 12:00:00 AM EDT eCW1 ([facility]) medroxyprogesterone acetate 10 MG Oral Tablet [Provera ] 08/28/2019 12:00:00 AM EDT eCW1 ([facility]) medroxyprogesterone acetate 10 MG Oral Tablet [Provera ] 08/28/2019 12:00:00 AM EDT eCW1 ([facility]) BD Pen Needle Dary U/F 32G X 4 MM 07/17/2019 12:00:00 AM EDT eCW1 ([facility]) BD Pen Needle Dray U/F 32G X 4 MM 07/17/2019 12:00:00 AM EDT eCW1 ([facility]) BD Pen Needle Dary U/F 32G X 4 MM 07/17/2019 12:00:00 AM EDT eCW1 ([facility]) BD Pen Needle Dary U/F 32G X 4 MM 07/17/2019 12:00:00 AM EDT eCW1 ([facility]) BD Pen Needle Dary U/F 32G X 4 MM 07/17/2019 12:00:00 AM EDT eCW1 ([facility])
== END 2020-05-13 16:11 | disposition home or self-care (01) ==
LOC: M ED 14:40
DX: R11.0 Nausea (principal); T50.Z95A Adverse effect of other vaccines and biological substances, initial encounter; X58.XXXA Exposure to other specified factors, initial encounter; Y92.89 Other specified places as the place of occurrence of the external cause; E11.9 Type 2 diabetes mellitus without complications; I10 Essential (primary) hypertension; K21.9 Gastro-esophageal reflux disease without esophagitis; E78.5 Hyperlipidemia, unspecified; E03.9 Hypothyroidism, unspecified; F33.9 Major depressive disorder, recurrent, unspecified; F41.9 Anxiety disorder, unspecified; Z79.899 Other long term (current) drug therapy; Z79.82 Long term (current) use of aspirin; Z79.4 Long term (current) use of insulin; Z88.8 Allergy status to other drugs, medicaments and biological substances; Z91.018 Allergy to other foods
CPT/HCPCS: 99283; Q0162

== ENCOUNTER → 2020-05-19 | Outpatient (REF) | payer OTHER ==
[~2020-05-19] MED LIST changes: +METF-838; +ONDA4TAB6 PO
[2020-05-19 16:12] LABS: HCG, SERUM QUALITATIVE NEGATIVE (NEGATIVE)
[2020-05-19 16:46] LABS: HEMOGLOBIN A1c 8.4 %
== END ==
LOC: M PLALAB 13:46
PROVIDERS: ATTEND Family Medicine
DX: N91.2 Amenorrhea, unspecified (principal); E55.9 Vitamin D deficiency, unspecified

== ENCOUNTER → 2020-06-08 | Outpatient (REF) | LOC: M LABSMTC 10:07 | PROVIDERS: ATTEND Pediatrics | DX: Z11.52 Encounter for screening for COVID-19 (principal) ==

== ENCOUNTER → 2020-06-14 | Outpatient (REF) | payer OTHER ==
[2020-06-14 10:25] LABS: BASO % 0.1 % (0.0-1.0); EOS # 0.1 10^3/uL (0.0-0.5); EOS % 1.6 % (0.0-3.0); HEMATOCRIT 40.7 % (36.0-47.0); HEMOGLOBIN 12.7 g/dl (12.0-15.5); LYMPH # 2.2 10^3/uL (1.5-5.0); LYMPH % 26.7 % (24.0-44.0); MEAN CORPUSCULAR HEMOGLOBIN 26.3 pg (27.0-33.0); MEAN CORPUSCULAR HGB CONC 31.2 g/dl (32.0-36.5); MEAN CORPUSCULAR VOLUME 84.4 fl (80.0-96.0); MONO # 0.8 10^3/uL (0.0-0.8); MONO % 9.4 % (2.0-8.0); NEUTROPHILS # 5.1 10^3/uL (1.5-8.5); NEUTROPHILS % 61.7 % (36.0-66.0); PLATELET COUNT, AUTOMATED 292 10^3/uL (150-450); RED BLOOD COUNT 4.82 10^6/uL (4.00-5.40); WHITE BLOOD COUNT 8.3 10^3/uL (4.0-10.0)
[2020-06-14 10:51] LABS: ALBUMIN 3.4 GM/DL (3.2-5.2); ALT/SGPT 23 U/L (12-78); BILIRUBIN,TOTAL 0.3 MG/DL (0.2-1.0); BLOOD UREA NITROGEN 9 MG/DL (7-18); CALCIUM LEVEL 8.6 MG/DL (8.5-10.1); CARBON DIOXIDE LEVEL 28 MEQ/L (21-32); CHLORIDE LEVEL 103 MEQ/L (98-107); CREATININE FOR GFR 0.78 MG/DL (0.55-1.30); GLOMERULAR FILTRATION RATE > 60.0 (>60); GLUCOSE, FASTING 314 MG/DL (70-100); POTASSIUM SERUM 4.6 MEQ/L (3.5-5.1); SODIUM LEVEL 136 MEQ/L (136-145)
== END ==
LOC: M SFHCPLAZ 08:36
PROVIDERS: ATTEND Family Medicine
DX: R19.7 Diarrhea, unspecified (principal)

== ENCOUNTER → 2020-06-17 | Outpatient (REF) | payer OTHER | LOC: M SFHCPLAZ 15:16 | PROVIDERS: ATTEND Family Medicine | DX: R19.7 Diarrhea, unspecified (principal) ==

== ENCOUNTER 2020-06-28 12:57 | Emergency (ER) | payer OTHER ==
[~2020-06-28] VITALS: Ht 160 cm; Wt 118.9 kg
[2020-06-28 13:44] LABS: BASO % 0.4 % (0.0-1.0); EOS # 0.1 10^3/uL (0.0-0.5); EOS % 1.8 % (0.0-3.0); HEMATOCRIT 43.3 % (36.0-47.0); HEMOGLOBIN 13.2 g/dl (12.0-15.5); LYMPH # 2.1 10^3/uL (1.5-5.0); LYMPH % 27.1 % (24.0-44.0); MEAN CORPUSCULAR HEMOGLOBIN 25.9 pg (27.0-33.0); MEAN CORPUSCULAR HGB CONC 30.5 g/dl (32.0-36.5); MEAN CORPUSCULAR VOLUME 84.9 fl (80.0-96.0); MONO # 0.5 10^3/uL (0.0-0.8); MONO % 6.8 % (2.0-8.0); NEUTROPHILS % 63.6 % (36.0-66.0); PLATELET COUNT, AUTOMATED 285 10^3/uL (150-450); WHITE BLOOD COUNT 7.9 10^3/uL (4.0-10.0)
[2020-06-28 13:54] LABS: INR 0.88; PARTIAL THROMBOPLASTIN TIME 26.3 SECONDS (24.2-38.5); PROTHROMBIN TIME 12.1 SECONDS (12.5-14.3)
[2020-06-28 14:09] LABS: ALBUMIN 3.6 GM/DL (3.2-5.2); ALT/SGPT 27 U/L (12-78); AMYLASE 20 U/L (25-115); BILIRUBIN,DIRECT 0.1 MG/DL (0.0-0.2); BILIRUBIN,TOTAL 0.5 MG/DL (0.2-1.0); BLOOD UREA NITROGEN 13 MG/DL (7-18); CALCIUM LEVEL 9.4 MG/DL (8.5-10.1); CARBON DIOXIDE LEVEL 29 MEQ/L (21-32); CHLORIDE LEVEL 104 MEQ/L (98-107); CREATININE FOR GFR 0.73 MG/DL (0.55-1.30); GLOMERULAR FILTRATION RATE > 60.0 (>60); GLUCOSE, FASTING 263 MG/DL (70-100); LIPASE 61 U/L (73-393); POTASSIUM SERUM 5.1 MEQ/L (3.5-5.1); SODIUM LEVEL 137 MEQ/L (136-145); TOTAL PROTEIN 7.3 GM/DL (6.4-8.2)
--- NOTE | 2020-06-28 17:44 | REP ---
INDICATION: abdominal pain left. COMPARISON: None. FINDINGS: KUB shows the intestinal gas pattern to be nonspecific. The organ silhouettes insofar as delineated are unremarkable. There is no evidence of free intraperitoneal air. IMPRESSION: Nonspecific. No evidence of acute disease. <Electronically signed by Sean Curry > 06/28/20 [id number]
--- NOTE | 2020-06-28 19:07 | REPVR ---
PROCEDURE INFORMATION: Exam: CT Abdomen And Pelvis Without Contrast Exam date and time: 06/28/2020 6:00 PM Age: 40 years old Clinical indication: Abdominal pain TECHNIQUE: Imaging protocol: Computed tomography of the abdomen and pelvis without contrast. Radiation optimization: All CT scans at this facility use at least one of these dose optimization techniques: automated exposure control; mA and/or kV adjustment per patient size (includes targeted exams where dose is matched to clinical indication); or iterative reconstruction. COMPARISON: CT ABD PELVIS W/O CONTRAST 02/06/2017 9:01 PM FINDINGS: Liver: Normal. No mass. Gallbladder and bile ducts: Small density demonstrated in the posterior lumen of the gallbladder consistent with a small calculus. Pancreas: Normal. No ductal dilation. Spleen: Normal. No splenomegaly. Adrenal glands: Normal. No mass. Kidneys and ureters: Normal. No hydronephrosis. Stomach and bowel: Unremarkable. No obstruction. No mucosal thickening. Appendix: No evidence of appendicitis. Intraperitoneal space: Unremarkable. No free air. No significant fluid collection. Vasculature: Unremarkable. No abdominal aortic aneurysm. Lymph nodes: Unremarkable. No enlarged lymph nodes. Urinary bladder: Unremarkable as visualized. Reproductive: Unremarkable as visualized. Bones/joints: Unremarkable. No acute fracture. Soft tissues: Unremarkable. IMPRESSION: 1. Small density demonstrated in the posterior lumen of the gallbladder consistent with a small calculus. 2. No acute findings. Electronically signed by: Edinosn Hansen On 06/28/2020 19:08:12 PM
[2020-06-28 20:06] VITALS: BP 142/85
== END 2020-06-28 20:07 | disposition home or self-care (01) ==
LOC: M ED 12:57
DX: E11.65 Type 2 diabetes mellitus with hyperglycemia (principal); R10.84 Generalized abdominal pain; I10 Essential (primary) hypertension; E03.9 Hypothyroidism, unspecified; K21.9 Gastro-esophageal reflux disease without esophagitis; Z79.899 Other long term (current) drug therapy; Z79.82 Long term (current) use of aspirin; Z79.4 Long term (current) use of insulin; Z88.8 Allergy status to other drugs, medicaments and biological substances; Z91.018 Allergy to other foods

== ENCOUNTER → 2020-08-02 | Outpatient (REF) | LOC: M LABSMTC 13:40 | PROVIDERS: ATTEND Pediatrics | DX: Z20.822 Contact with and (suspected) exposure to COVID-19 (principal) ==

== ENCOUNTER → 2020-08-06 | Outpatient (REF) | payer OTHER | LOC: M SFHCPLAZ 11:58 | PROVIDERS: ATTEND Family Medicine | DX: R50.9 Fever, unspecified (principal); E11.9 Type 2 diabetes mellitus without complications ==

== ENCOUNTER → 2020-08-19 | Outpatient (CLI) | payer OTHER ==
--- NOTE | 2020-08-19 16:07 | REPPI ---
INDICATION: R50.9 FEVER UNSPECIFIED COMPARISON: 07/09/2008 TECHNIQUE: PA and lateral. FINDINGS: The mediastinum and cardiac silhouette are normal. The lung pelayo are clear and without acute consolidation, effusion, or pneumothorax. The skeletal structures are intact and normal. IMPRESSION: No acute cardiopulmonary process. <Electronically signed by Jean Diaz > 08/19/20 [id number]
== END ==
LOC: M PLAIMG 15:27
PROVIDERS: ATTEND Family Medicine
DX: R50.9 Fever, unspecified (principal)

== ENCOUNTER → 2020-08-19 | Outpatient (REF) | payer OTHER ==
[2020-08-19 17:32] LABS: BASO % 0.3 % (0.0-1.0); EOS # 0.1 10^3/uL (0.0-0.5); HEMATOCRIT 42.4 % (36.0-47.0); HEMOGLOBIN 13.1 g/dl (12.0-15.5); LYMPH # 2.2 10^3/uL (1.5-5.0); LYMPH % 22.6 % (24.0-44.0); MEAN CORPUSCULAR HEMOGLOBIN 26.1 pg (27.0-33.0); MEAN CORPUSCULAR HGB CONC 30.9 g/dl (32.0-36.5); MEAN CORPUSCULAR VOLUME 84.5 fl (80.0-96.0); MONO # 0.7 10^3/uL (0.0-0.8); NEUTROPHILS # 6.6 10^3/uL (1.5-8.5); NEUTROPHILS % 68.9 % (36.0-66.0); PLATELET COUNT, AUTOMATED 268 10^3/uL (150-450); RED BLOOD COUNT 5.02 10^6/uL (4.00-5.40); WHITE BLOOD COUNT 9.6 10^3/uL (4.0-10.0)
[2020-08-19 17:57] LABS: ALBUMIN 3.6 GM/DL (3.2-5.2); ALT/SGPT 23 U/L (12-78); BILIRUBIN,TOTAL 0.5 MG/DL (0.2-1.0); BLOOD UREA NITROGEN 10 MG/DL (7-18); CARBON DIOXIDE LEVEL 26 MEQ/L (21-32); CHLORIDE LEVEL 105 MEQ/L (98-107); CREATININE FOR GFR 0.74 MG/DL (0.55-1.30); GLOMERULAR FILTRATION RATE > 60.0 (>60); GLUCOSE, FASTING 286 MG/DL (70-100); POTASSIUM SERUM 4.1 MEQ/L (3.5-5.1); SODIUM LEVEL 139 MEQ/L (136-145); THYROID STIMULATING HORMONE 0.854 uIU/ML (0.358-3.740); TOTAL PROTEIN 7.4 GM/DL (6.4-8.2)
[2020-08-19 20:40] LABS: FOLLICLE STIMULATING HORMONE 7.5 mIU/mL; LUTEINIZING HORMONE 7.5 mIU/mL
[2020-08-19 21:57] LABS: HIV 1&2 SCREEN CENTAUR NEGATIVE (NEGATIVE)
== END ==
LOC: M PLALAB 15:27
PROVIDERS: ATTEND Family Medicine
DX: R23.2 Flushing (principal); R50.9 Fever, unspecified

== ENCOUNTER 2020-08-30 17:24 | Emergency (ER) | payer OTHER ==
[~2020-08-30] VITALS: Ht 160 cm; Wt 119.0 kg
[2020-08-30] MEDS ORDERED: NORCO, ANEXSIA 5/325MG TABLET (HYDROcodone/ACETAMINOPHEN) PO ONE (21:20)
[2020-08-30] MEDS ORDERED: LIDOCAINE 4% CREAM 5GM (LMX4) TOP ONE (21:20)
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
[2020-08-30] MEDS ORDERED: IBUP-1022 PO (22:31)
[2020-08-30] MEDS ORDERED: ANEC4CRE3 TOP (22:31)
[2020-08-30] MEDS ORDERED: NORCO 5/325MG TABLET (BULK FOR ED) PO ONE (22:40)
[2020-08-30 22:41] VITALS: BP 127/86
== END 2020-08-30 23:12 | disposition home or self-care (01) ==
LOC: M ED 17:24
DX: S89.92XA Unspecified injury of left lower leg, initial encounter (principal); M25.572 Pain in left ankle and joints of left foot; W29.8XXA Contact with other powered hand tools and household machinery, initial encounter; Y99.0 Civilian activity done for income or pay; Y92.9 Unspecified place or not applicable; Y93.9 Activity, unspecified; Z88.8 Allergy status to other drugs, medicaments and biological substances; Z91.013 Allergy to seafood

== ENCOUNTER → 2020-10-01 | Outpatient (CLI) | payer OTHER ==
[~2020-10-01] MED LIST changes: +ANEC4CRE3 TOP; +IBUP-1022 PO
--- NOTE | 2020-10-01 16:31 | REP ---
INDICATION: LT KNEE INJURY. Possible medial meniscal tear. COMPARISON: Comparison radiographs of the left knee are from August 30, 2020.. TECHNIQUE: Axial, coronal, and sagittal imaging planes are utilized. T1, proton density, and T2 weighted scans are included with without fat saturation in the usual fashion. The patient apparently had difficulty remaining motionless and moved any of the coil during the exam. She declined repeat imaging and as result, standard axial T2 weighted sequence could not be achieved. FINDINGS: Cortical and medullary bone signal intensity are normal. There is no evidence of occult fracture. There is some mild extra-articular subcutaneous fat edema in the pretibial and prepatellar fat. There is a small quantity of joint fluid. No Bolaños's cyst is appreciated. Patellar and quadriceps tendons are intact. The anterior and posterior cruciate ligaments have an intact appearance. There is no evidence of medial or lateral collateral ligament disruption. No medial or lateral meniscal tear is appreciated. There is a small zone of marrow edema in the central patella and there is irregularity and swelling of the articular cartilage overlying this in the central patella on sagittal T2 weighted scans. No other articular cartilage deficit is seen. Exam is otherwise unremarkable. IMPRESSION: Small joint effusion. 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 Mild periarticular soft tissue edema. No other evidence of internal derangement seen. <Electronically signed by Kaleb Gray > 10/01/20 [id number]
== END ==
LOC: M PLARAD 13:52
PROVIDERS: ATTEND Orthopaedic Surgery Sports Medicine
DX: S83.242A Other tear of medial meniscus, current injury, left knee, initial encounter (principal); W18.30XA Fall on same level, unspecified, initial encounter; Y92.009 Unspecified place in unspecified non-institutional (private) residence as the place of occurrence of the external cause

== ENCOUNTER → 2020-12-02 | Outpatient (CLI) | payer OTHER ==
--- NOTE | 2020-12-02 18:01 | REP ---
INDICATION: LT KNEE ARTHRITIS. COMPARISON: 08/30/2020 TECHNIQUE: AP, lateral, bilateral oblique and sunrise views of the left knee. FINDINGS: For stable generalized age-related changes including mild increased sclerosis along the medial tibial plateau and posterior patellar margin with associated mild joint space narrowing. No acute fracture or dislocation. No obvious effusion. IMPRESSION: Mild degenerative changes. <Electronically signed by Jean Diaz > 12/02/20 [id number]
== END ==
LOC: M SOG 10:08
PROVIDERS: ATTEND Orthopaedic Surgery Sports Medicine
DX: M17.12 Unilateral primary osteoarthritis, left knee (principal)

== ENCOUNTER → 2020-12-06 | Outpatient (CLI) | payer OTHER ==
[2020-12-06 16:13] LABS: HEMOGLOBIN A1c 9.4 %
[2020-12-06 16:15] LABS: BLOOD UREA NITROGEN 9 MG/DL (7-18); CALCIUM LEVEL 9.3 MG/DL (8.5-10.1); CARBON DIOXIDE LEVEL 29 MEQ/L (21-32); CHLORIDE LEVEL 104 MEQ/L (98-107); GLOMERULAR FILTRATION RATE > 60.0 (>60); GLUCOSE, FASTING 216 MG/DL (70-100); POTASSIUM SERUM 5.4 MEQ/L (3.5-5.1); SODIUM LEVEL 139 MEQ/L (136-145)
[2020-12-06 16:21] LABS: HCG, SERUM QUALITATIVE NEGATIVE (NEGATIVE)
[2020-12-06 16:30] LABS: MALB URINE SIEMENS 12.6 MG/L; MAU/CREAT RATIO 17.7 MCG/MG (0.0-30.0)
== END ==
LOC: M PLAIMG 12:21
PROVIDERS: ATTEND Family Medicine
DX: M54.5 Low back pain (principal)

== ENCOUNTER → 2020-12-09 | Outpatient (CLI) | payer OTHER ==
[2020-12-09 18:22] LABS: BLOOD UREA NITROGEN 15 MG/DL (7-18); CALCIUM LEVEL 9.5 MG/DL (8.5-10.1); CARBON DIOXIDE LEVEL 28 MEQ/L (21-32); CHLORIDE LEVEL 101 MEQ/L (98-107); GLOMERULAR FILTRATION RATE > 60.0 (>60); GLUCOSE, FASTING 205 MG/DL (70-100); POTASSIUM SERUM 4.9 MEQ/L (3.5-5.1); SODIUM LEVEL 136 MEQ/L (136-145)
== END ==
LOC: M PLALAB 13:29
PROVIDERS: ATTEND Family Medicine
DX: E87.5 Hyperkalemia (principal)

== ENCOUNTER → 2020-12-14 | Outpatient (CLI) | payer OTHER ==
--- NOTE | 2020-12-14 15:56 | REP ---
INDICATION: OA, NEW INJURY TWISTING MECHANISM x2, NORMAL XRAYS. COMPARISON: Comparison radiographs of the left knee are from December 02, 2020. Comparison left knee MRI study is from October 01, 2020. TECHNIQUE: Axial, coronal, and sagittal imaging planes utilized. T1, proton density, and T2 weighted scans are obtained in the usual fashion with without fat saturation. FINDINGS: Cortical and medullary bone signal intensity are normal. There is no evidence of occult fracture. There is a small knee joint effusion without visible Bolaños's cyst. There is fairly diffuse extra-articular subcutaneous edema pattern again noted. Skeletal muscle signal intensity is normal. Medial and lateral patellar retinacular structures appear intact. Patellar and quadriceps tendons are intact. There is no evidence of anterior or posterior cruciate ligament disruption. Medial and lateral collateral ligaments appear intact. There is subcortical edema and early cyst formation in the central patella where there is moderate to advanced patellar chondromalacia particularly affecting the lateral patellar facet. This appears unchanged from the comparison study. No new articular cartilaginous lesion is appreciated. There is no evidence of medial or lateral meniscal tear. IMPRESSION: Moderate to marked chondromalacia patella is again seen with sub cortical patellar edema and early subcortical cyst formation. Small joint effusion. No evidence of occult fracture or new soft tissue injury. <Electronically signed by Kaleb Gray > 12/14/20 [id number]
== END ==
LOC: M PLAIMG 13:45
PROVIDERS: ATTEND Orthopaedic Surgery Sports Medicine
DX: M17.12 Unilateral primary osteoarthritis, left knee (principal)

== ENCOUNTER → 2021-02-15 | Outpatient (CLI) | payer OTHER ==
[2021-02-15 12:22] LABS: BASO % 0.3 % (0.0-1.0); EOS # 0.2 10^3/uL (0.0-0.5); EOS % 1.6 % (0.0-3.0); HEMATOCRIT 38.7 % (36.0-47.0); HEMOGLOBIN 11.9 g/dl (12.0-15.5); LYMPH # 2.9 10^3/uL (1.5-5.0); LYMPH % 29.6 % (24.0-44.0); MEAN CORPUSCULAR HEMOGLOBIN 26.1 pg (27.0-33.0); MEAN CORPUSCULAR HGB CONC 30.7 g/dl (32.0-36.5); MEAN CORPUSCULAR VOLUME 84.9 fl (80.0-96.0); MONO # 0.8 10^3/uL (0.0-0.8); MONO % 7.8 % (2.0-8.0); NEUTROPHILS # 5.8 10^3/uL (1.5-8.5); NEUTROPHILS % 60.4 % (36.0-66.0); PLATELET COUNT, AUTOMATED 328 10^3/uL (150-450); RED BLOOD COUNT 4.56 10^6/uL (4.00-5.40); WHITE BLOOD COUNT 9.6 10^3/uL (4.0-10.0)
[2021-02-15 12:45] LABS: FERRITIN 12 NG/ML (8-252); IRON (FE) 32 UG/DL (50-170)
== END ==
LOC: M WUC 11:19
PROVIDERS: ATTEND Family Medicine
DX: N92.0 Excessive and frequent menstruation with regular cycle (principal)

== ENCOUNTER → 2021-03-07 | Outpatient (REF) | payer OTHER | LOC: M LAB REF 16:30 | PROVIDERS: ATTEND Physician Assistant Medical | DX: R50.9 Fever, unspecified (principal) ==

== ENCOUNTER → 2021-08-18 | Outpatient (CLI) | payer OTHER ==
[2021-08-18 17:34] LABS: BASO % 0.4 % (0.0-1.0); EOS # 0.1 10^3/uL (0.0-0.5); HEMATOCRIT 41.6 % (36.0-47.0); HEMOGLOBIN 12.8 g/dl (12.0-15.5); LYMPH # 2.6 10^3/uL (1.5-5.0); LYMPH % 23.2 % (24.0-44.0); MEAN CORPUSCULAR HEMOGLOBIN 25.7 pg (27.0-33.0); MEAN CORPUSCULAR HGB CONC 30.8 g/dl (32.0-36.5); MEAN CORPUSCULAR VOLUME 83.5 fl (80.0-96.0); MONO # 0.8 10^3/uL (0.0-0.8); MONO % 7.2 % (2.0-8.0); NEUTROPHILS # 7.7 10^3/uL (1.5-8.5); NEUTROPHILS % 67.8 % (36.0-66.0); PLATELET COUNT, AUTOMATED 351 10^3/uL (150-450); RED BLOOD COUNT 4.98 10^6/uL (4.00-5.40); WHITE BLOOD COUNT 11.3 10^3/uL (4.0-10.0)
[2021-08-18 17:58] LABS: ALBUMIN 3.4 GM/DL (3.2-5.2); ALT/SGPT 28 U/L (12-78); BILIRUBIN,TOTAL 0.4 MG/DL (0.2-1.0); BLOOD UREA NITROGEN 11 MG/DL (7-18); CALCIUM LEVEL 9.1 MG/DL (8.5-10.1); CARBON DIOXIDE LEVEL 27 MEQ/L (21-32); CHLORIDE LEVEL 106 MEQ/L (98-107); CHOLESTEROL LEVEL 186 MG/DL (<200); CHOLESTEROL RISK RATIO 3.509 (<5); CREATININE FOR GFR 0.83 MG/DL (0.55-1.30); GLOMERULAR FILTRATION RATE > 60.0 (>58); GLUCOSE, FASTING 161 MG/DL (70-100); HDL CHOLESTEROL 53 MG/DL (>40); LDL CHOLESTEROL 112 MG/DL (<100); NON-HDL-C 133 MG/DL; POTASSIUM SERUM 5.1 MEQ/L (3.5-5.1); SODIUM LEVEL 137 MEQ/L (136-145); THYROID STIMULATING HORMONE 0.445 uIU/ML (0.358-3.740); TOTAL PROTEIN 7.2 GM/DL (6.4-8.2); TRIGLYCERIDES LEVEL 106 MG/DL (<150)
[2021-08-18 19:44] LABS: HEMOGLOBIN A1c 7.7 %
== END ==
LOC: M PLALAB 15:39
PROVIDERS: ATTEND Physician Assistant
DX: E11.9 Type 2 diabetes mellitus without complications (principal)

== ENCOUNTER → 2021-11-23 | Outpatient (CLI) | payer OTHER ==
[2021-11-23 15:26] LABS: BASO % 0.2 % (0.0-1.0); EOS # 0.1 10^3/uL (0.0-0.5); EOS % 0.6 % (0.0-3.0); HEMOGLOBIN 12.7 g/dl (12.0-15.5); LYMPH # 2.5 10^3/uL (1.5-5.0); LYMPH % 17.6 % (24.0-44.0); MEAN CORPUSCULAR HEMOGLOBIN 27.1 pg (27.0-33.0); MEAN CORPUSCULAR HGB CONC 31.8 g/dl (32.0-36.5); MEAN CORPUSCULAR VOLUME 85.5 fl (80.0-96.0); MONO # 0.9 10^3/uL (0.0-0.8); MONO % 6.1 % (2.0-8.0); NEUTROPHILS # 10.9 10^3/uL (1.5-8.5); NEUTROPHILS % 75.2 % (36.0-66.0); PLATELET COUNT, AUTOMATED 314 10^3/uL (150-450); RED BLOOD COUNT 4.68 10^6/uL (4.00-5.40); WHITE BLOOD COUNT 14.5 10^3/uL (4.0-10.0)
[2021-11-23 15:49] LABS: HEMOGLOBIN A1c 7.6 %
[2021-11-23 16:11] LABS: ALBUMIN 3.4 GM/DL (3.2-5.2); ALT/SGPT 18 U/L (12-78); BILIRUBIN,TOTAL 0.5 MG/DL (0.2-1.0); BLOOD UREA NITROGEN 11 MG/DL (7-18); CALCIUM LEVEL 9.1 MG/DL (8.5-10.1); CARBON DIOXIDE LEVEL 22 MEQ/L (21-32); CHLORIDE LEVEL 104 MEQ/L (98-107); CREATININE FOR GFR 0.64 MG/DL (0.55-1.30); GLOMERULAR FILTRATION RATE > 60.0 (>58); GLUCOSE, FASTING 157 MG/DL (70-100); POTASSIUM SERUM 4.5 MEQ/L (3.5-5.1); SODIUM LEVEL 135 MEQ/L (136-145)
== END ==
LOC: M PLALAB 13:44
PROVIDERS: ATTEND Physician Assistant
DX: E11.9 Type 2 diabetes mellitus without complications (principal)

== ENCOUNTER → 2021-11-30 | Outpatient (CLI) | payer OTHER ==
[2021-11-30 18:41] LABS: BASO % 0.3 % (0.0-1.0); EOS # 0.1 10^3/uL (0.0-0.5); EOS % 0.6 % (0.0-3.0); HEMATOCRIT 40.6 % (36.0-47.0); HEMOGLOBIN 12.7 g/dl (12.0-15.5); LYMPH # 2.5 10^3/uL (1.5-5.0); LYMPH % 19.2 % (24.0-44.0); MEAN CORPUSCULAR HEMOGLOBIN 27.1 pg (27.0-33.0); MEAN CORPUSCULAR HGB CONC 31.3 g/dl (32.0-36.5); MEAN CORPUSCULAR VOLUME 86.8 fl (80.0-96.0); MONO # 1.1 10^3/uL (0.0-0.8); MONO % 7.9 % (2.0-8.0); NEUTROPHILS # 9.5 10^3/uL (1.5-8.5); NEUTROPHILS % 71.7 % (36.0-66.0); PLATELET COUNT, AUTOMATED 367 10^3/uL (150-450); RED BLOOD COUNT 4.68 10^6/uL (4.00-5.40); WHITE BLOOD COUNT 13.2 10^3/uL (4.0-10.0)
[2021-11-30 21:10] LABS: ERYTHROCYTE SEDIMENTATION RATE 29 mm/hr (0-20)
== END ==
LOC: M PLALAB 14:44
PROVIDERS: ATTEND Physician Assistant
DX: D72.829 Elevated white blood cell count, unspecified (principal)

== ENCOUNTER → 2021-12-07 | Outpatient (CLI) | payer OTHER | LOC: M SOG 14:41 | PROVIDERS: ATTEND Orthopaedic Surgery Adult Reconstructive Orthopaedic Surgery | DX: M22.2X2 Patellofemoral disorders, left knee (principal) ==

== ENCOUNTER → 2021-12-22 | Outpatient (CLI) | payer OTHER ==
[2021-12-22 18:23] LABS: BASO % 0.4 % (0.0-1.0); EOS # 0.3 10^3/uL (0.0-0.5); EOS % 2.3 % (0.0-3.0); HEMATOCRIT 41.1 % (36.0-47.0); LYMPH # 2.7 10^3/uL (1.5-5.0); LYMPH % 24.6 % (24.0-44.0); MEAN CORPUSCULAR HEMOGLOBIN 27.4 pg (27.0-33.0); MEAN CORPUSCULAR HGB CONC 31.6 g/dl (32.0-36.5); MEAN CORPUSCULAR VOLUME 86.7 fl (80.0-96.0); MONO # 0.8 10^3/uL (0.0-0.8); MONO % 6.8 % (2.0-8.0); NEUTROPHILS # 7.3 10^3/uL (1.5-8.5); NEUTROPHILS % 65.6 % (36.0-66.0); PLATELET COUNT, AUTOMATED 343 10^3/uL (150-450); RED BLOOD COUNT 4.74 10^6/uL (4.00-5.40); WHITE BLOOD COUNT 11.1 10^3/uL (4.0-10.0)
[2021-12-22 18:57] LABS: ALBUMIN 3.4 GM/DL (3.2-5.2); ALT/SGPT 34 U/L (12-78); BILIRUBIN,TOTAL 0.2 MG/DL (0.2-1.0); BLOOD UREA NITROGEN 9 MG/DL (7-18); C REACTIVE PROTEIN QUANTITATIV 2.19 MG/DL (0.00-0.30); CALCIUM LEVEL 9.1 MG/DL (8.5-10.1); CARBON DIOXIDE LEVEL 23 MEQ/L (21-32); CHLORIDE LEVEL 107 MEQ/L (98-107); CREATININE FOR GFR 0.82 MG/DL (0.55-1.30); GLOMERULAR FILTRATION RATE > 60.0 (>58); GLUCOSE, FASTING 214 MG/DL (70-100); LIPASE 148 U/L (73-393); POTASSIUM SERUM 4.1 MEQ/L (3.5-5.1); SODIUM LEVEL 137 MEQ/L (136-145); TOTAL PROTEIN 7.1 GM/DL (6.4-8.2)
[2021-12-22 19:21] LABS: ERYTHROCYTE SEDIMENTATION RATE 45 mm/hr (0-20)
== END ==
LOC: M PLALAB 15:08
PROVIDERS: ATTEND Physician Assistant
DX: R19.7 Diarrhea, unspecified (principal); R10.9 Unspecified abdominal pain

== ENCOUNTER 2022-06-25 16:45 | Emergency (ER) | payer OTHER ==
[~2022-06-25] VITALS: Ht 157.5 cm; Wt 92.7 kg
[2022-06-25 16:46] VITALS: BP 168/94
[2022-06-25] MEDS ORDERED: KETOROLAC 30 MG/ML 1ML VIAL IV ONE (18:05)
[2022-06-25 18:50] LABS: BASO % 0.3 % (0.0-1.0); EOS # 0.1 10^3/uL (0.0-0.5); EOS % 1.1 % (0.0-3.0); HEMATOCRIT 38.8 % (36.0-47.0); HEMOGLOBIN 12.4 g/dl (12.0-15.5); LYMPH % 29.5 % (24.0-44.0); MEAN CORPUSCULAR HEMOGLOBIN 26.7 pg (27.0-33.0); MEAN CORPUSCULAR VOLUME 83.4 fl (80.0-96.0); MONO % 9.5 % (2.0-8.0); NEUTROPHILS % 59.2 % (36.0-66.0); PLATELET COUNT, AUTOMATED 350 10^3/uL (150-450); RED BLOOD COUNT 4.65 10^6/uL (4.00-5.40); WHITE BLOOD COUNT 10.2 10^3/uL (4.0-10.0)
[2022-06-25 18:55] LABS: ERYTHROCYTE SEDIMENTATION RATE 60 mm/hr (0-20)
[2022-06-25] MEDS ORDERED: DALBAVANCIN 1,500 MG in D5W 250 ML IV ONE (19:15)
[2022-06-25] MEDS ORDERED: NS 1,000 ML IV ONE (19:15)
== END 2022-06-25 21:38 | disposition home or self-care (01) ==
LOC: M ED 16:45
DX: L03.114 Cellulitis of left upper limb (principal); F19.10 Other psychoactive substance abuse, uncomplicated; E11.9 Type 2 diabetes mellitus without complications; I10 Essential (primary) hypertension; E78.5 Hyperlipidemia, unspecified; E03.9 Hypothyroidism, unspecified; K21.9 Gastro-esophageal reflux disease without esophagitis; Z91.013 Allergy to seafood; Z79.4 Long term (current) use of insulin; Z79.899 Other long term (current) drug therapy
CPT/HCPCS: 36415; 73120; 80047; 83605; 84702; 85025; 85652; 86140; 87040; 96374; 96375; 99284; J0875; J1885

== ENCOUNTER 2022-07-11 10:34 | Emergency (ER) | payer OTHER ==
[~2022-07-11] VITALS: Ht 157.5 cm; Wt 92.3 kg
[2022-07-11] MEDS ORDERED: NS 1,000 ML IV ONE (11:45)
[2022-07-11 12:19] LABS: VENOUS BASE EXCESS -0.6 (-2.0-2.0); VENOUS HCO3 23.6 MEQ/L (23.0-27.0); VENOUS O2 SATURATION 77.1 % (60.0-80.0); VENOUS PARTIAL PRESSURE CO2 37.6 mmHg (38.0-50.0); VENOUS PARTIAL PRESSURE O2 40.5 mmHg (30.0-50.0); VENOUS PH 7.416 UNITS (7.330-7.430); VENOUS STANDARD HCO3 23.5 MEQ/L; VENOUS TOTAL CO2 24.8 MEQ/L (24.0-28.0)
[2022-07-11 12:31] LABS: BASO % 0.2 % (0.0-1.0); EOS # 0.1 10^3/uL (0.0-0.5); EOS % 0.4 % (0.0-3.0); HEMATOCRIT 39.9 % (36.0-47.0); LYMPH # 2.8 10^3/uL (1.5-5.0); LYMPH % 22.9 % (24.0-44.0); MEAN CORPUSCULAR HEMOGLOBIN 26.7 pg (27.0-33.0); MEAN CORPUSCULAR HGB CONC 32.6 g/dl (32.0-36.5); MEAN CORPUSCULAR VOLUME 82.1 fl (80.0-96.0); MONO # 0.6 10^3/uL (0.0-0.8); NEUTROPHILS # 8.6 10^3/uL (1.5-8.5); NEUTROPHILS % 71.1 % (36.0-66.0); PLATELET COUNT, AUTOMATED 379 10^3/uL (150-450); RED BLOOD COUNT 4.86 10^6/uL (4.00-5.40); WHITE BLOOD COUNT 12.1 10^3/uL (4.0-10.0)
[2022-07-11] MEDS ORDERED: TRI-TAB16 (12:35)
[2022-07-11] MEDS ORDERED: TRUL0.5I (12:35)
[2022-07-11] MEDS ORDERED: HYDR-643 (12:35)
[2022-07-11] MEDS ORDERED: ALPR0.5T3 (12:35)
[2022-07-11] MEDS ORDERED: METO1TAB7 (12:35)
[2022-07-11 12:53] LABS: ALBUMIN 3.3 G/DL (3.2-5.2); ALKALINE PHOSPHATASE 102 U/L (46-116); ALT/SGPT 14 U/L (7.0-40); AST/SGOT 12 U/L (<34); BILIRUBIN,TOTAL 0.5 MG/DL (0.3-1.2); BLOOD UREA NITROGEN 19 MG/DL (9-23); CALCIUM LEVEL 9.3 MG/DL (8.5-10.1); CARBON DIOXIDE LEVEL 22 MMOL/L (20-31); CHLORIDE LEVEL 105 MMOL/L (98-107); CREATININE FOR GFR 0.65 MG/DL (0.55-1.30); GLOMERULAR FILTRATION RATE > 60.0 (>58); GLUCOSE, FASTING 223 MG/DL (60-100); POTASSIUM SERUM 3.9 MMOL/L (3.5-5.1); SODIUM LEVEL 138 MMOL/L (136-145); TOTAL PROTEIN 7.3 G/DL (5.7-8.2)
[2022-07-11 15:14] VITALS: BP 152/72
== END 2022-07-11 15:25 | disposition home or self-care (01) ==
LOC: EDBD 10:34 → M ED 10:34
DX: R42 Dizziness and giddiness (principal); D72.829 Elevated white blood cell count, unspecified; R51.9 Headache, unspecified; Z91.013 Allergy to seafood; Z79.82 Long term (current) use of aspirin; Z79.4 Long term (current) use of insulin

== ENCOUNTER 2022-07-12 18:10 | Emergency (ER) | payer OTHER ==
[~2022-07-12] VITALS: Ht 157.5 cm; Wt 94.5 kg
[~2022-07-12 18:10] MED LIST changes: +ALPR0.5T3; +HYDR-643; +METO1TAB7; +TRI-TAB16; +TRUL0.5I
[2022-07-12] MEDS ORDERED: METOCLOPRAMIDE INJ 10MG/2ML VIAL IV ONE (21:30)
[2022-07-12] MEDS ORDERED: NS 1,000 ML IV ONE (21:30)
[2022-07-12] MEDS ORDERED: MECLIZINE 25 MG TABLET PO ONE (21:30)
[2022-07-12 22:40] LABS: BASO # 0.1 10^3/uL (0.0-0.2); BASO % 0.6 % (0.0-1.0); EOS # 0.1 10^3/uL (0.0-0.5); EOS % 1.4 % (0.0-3.0); HEMATOCRIT 41.5 % (36.0-47.0); HEMOGLOBIN 13.1 g/dl (12.0-15.5); LYMPH # 4.5 10^3/uL (1.5-5.0); LYMPH % 43.8 % (24.0-44.0); MEAN CORPUSCULAR HEMOGLOBIN 26.5 pg (27.0-33.0); MEAN CORPUSCULAR HGB CONC 31.6 g/dl (32.0-36.5); MEAN CORPUSCULAR VOLUME 83.8 fl (80.0-96.0); MONO # 0.8 10^3/uL (0.0-0.8); MONO % 7.4 % (2.0-8.0); NEUTROPHILS # 4.8 10^3/uL (1.5-8.5); NEUTROPHILS % 46.6 % (36.0-66.0); PLATELET COUNT, AUTOMATED 391 10^3/uL (150-450); RED BLOOD COUNT 4.95 10^6/uL (4.00-5.40); WHITE BLOOD COUNT 10.3 10^3/uL (4.0-10.0)
[2022-07-12 23:07] LABS: BLOOD UREA NITROGEN 15 MG/DL (9-23); CALCIUM LEVEL 9.6 MG/DL (8.5-10.1); CARBON DIOXIDE LEVEL 27 MMOL/L (20-31); CHLORIDE LEVEL 103 MMOL/L (98-107); CREATININE FOR GFR 0.67 MG/DL (0.55-1.30); GLOMERULAR FILTRATION RATE > 60.0 (>58); GLUCOSE, FASTING 301 MG/DL (60-100); POTASSIUM SERUM 3.8 MMOL/L (3.5-5.1); SODIUM LEVEL 138 MMOL/L (136-145)
[2022-07-13 00:10] LABS: VENOUS BASE EXCESS -2.3 (-2.0-2.0); VENOUS HCO3 24.9 MEQ/L (23.0-27.0); VENOUS O2 SATURATION 67.8 % (60.0-80.0); VENOUS PARTIAL PRESSURE CO2 53.6 mmHg (38.0-50.0); VENOUS PARTIAL PRESSURE O2 39.7 mmHg (30.0-50.0); VENOUS PH 7.285 UNITS (7.330-7.430); VENOUS TOTAL CO2 26.6 MEQ/L (24.0-28.0)
[2022-07-13 00:12] VITALS: BP 157/83
== END 2022-07-13 02:47 | disposition left against medical advice (07) ==
LOC: M ED 18:10
DX: N39.0 Urinary tract infection, site not specified (principal); E11.65 Type 2 diabetes mellitus with hyperglycemia; N76.0 Acute vaginitis; E78.5 Hyperlipidemia, unspecified; K21.9 Gastro-esophageal reflux disease without esophagitis; E03.9 Hypothyroidism, unspecified; Z79.890 Hormone replacement therapy; Z79.899 Other long term (current) drug therapy; Z88.8 Allergy status to other drugs, medicaments and biological substances; Z91.013 Allergy to seafood; Z79.82 Long term (current) use of aspirin; Z79.4 Long term (current) use of insulin
CPT/HCPCS: 80048; 81001; 81025; 82010; 82803; 85025; 87086; 93005; 96374; 99284; J2765

== ENCOUNTER → 2024-01-11 | Outpatient (CLI) | payer OTHER ==
[~2024-01-11] MED LIST changes: +CLON-952 PO; -GLIM1TAB4 PO; +GLIM1TAB84 PO; +KLON1TAB13 PO; -KLON2TAB PO; +ONDA-282 PO; -ONDA4TAB6 PO
== END ==
LOC: M WUC 11:51
PROVIDERS: ATTEND Nurse Practitioner Adult Health
DX: M54.50 Low back pain, unspecified (principal); M25.512 Pain in left shoulder

== ENCOUNTER → 2024-02-07 | Outpatient (CLI) | payer OTHER ==
[2024-02-07 12:51] LABS: BASO % 0.3 % (0.0-1.0); EOS # 0.2 10^3/uL (0.0-0.5); EOS % 2.2 % (0.0-3.0); HEMATOCRIT 38.3 % (36.0-47.0); HEMOGLOBIN 12.5 g/dl (12.0-15.5); LYMPH # 2.9 10^3/uL (1.5-5.0); LYMPH % 29.4 % (24.0-44.0); MEAN CORPUSCULAR HEMOGLOBIN 28.4 pg (27.0-33.0); MEAN CORPUSCULAR HGB CONC 32.6 g/dl (32.0-36.5); MONO # 0.7 10^3/uL (0.0-0.8); MONO % 7.4 % (2.0-8.0); NEUTROPHILS # 5.9 10^3/uL (1.5-8.5); NEUTROPHILS % 60.4 % (36.0-66.0); PLATELET COUNT, AUTOMATED 339 10^3/uL (150-450); WHITE BLOOD COUNT 9.7 10^3/uL (4.0-10.0)
[2024-02-07 13:19] LABS: ALBUMIN 3.1 G/DL (3.2-5.2); ALKALINE PHOSPHATASE 88 U/L (35-104); ALT/SGPT 14 U/L (7.0-40); AST/SGOT 9 U/L (<34); BILIRUBIN,TOTAL 0.2 MG/DL (0.3-1.2); BLOOD UREA NITROGEN 11 MG/DL (9-23); CALCIUM LEVEL 9.3 MG/DL (8.5-10.1); CARBON DIOXIDE LEVEL 26 MMOL/L (20-31); CHLORIDE LEVEL 106 MMOL/L (98-107); CHOLESTEROL LEVEL 159 MG/DL (<200); CHOLESTEROL RISK RATIO 3.02 (<5); CREATININE FOR GFR 0.69 MG/DL (0.55-1.30); GLOMERULAR FILTRATION RATE > 60.0 (>58); GLUCOSE, FASTING 163 MG/DL (60-100); HDL CHOLESTEROL 52.5 MG/DL (>40); LDL CHOLESTEROL 76.1 MG/DL (<100); NON-HDL-C 106.5 MG/DL; POTASSIUM SERUM 4.1 MMOL/L (3.5-5.1); SODIUM LEVEL 138 MMOL/L (136-145); TOTAL PROTEIN 6.7 G/DL (5.7-8.2); TRIGLYCERIDES LEVEL 152 MG/DL (<150)
[2024-02-07 13:21] LABS: FREE T4 0.98 NG/DL (0.89-1.76); THYROID STIMULATING HORMONE 0.651 uIU/ML (0.55-4.78)
[2024-02-07 13:22] LABS: TOTAL 25(OH) VITAMIN D 46.8 NG/ML (20.0-100.0)
[2024-02-07 13:39] LABS: HEMOGLOBIN A1c 7.9 % (4.0-6.0)
== END ==
LOC: M WUC 09:26
PROVIDERS: ATTEND Nurse Practitioner Adult Health
DX: Z00.8 Encounter for other general examination (principal)

== ENCOUNTER 2025-01-16 00:11 | Emergency (ER) | payer OTHER ==
[~2025-01-16] VITALS: Ht 157.5 cm; Wt 108.1 kg
[~2025-01-16 00:11] MED LIST changes: -IBUP-1022 PO; +IBUP600T42 PO
[2025-01-16] MEDS: NS (Normal Saline) 0.9% 1,000 ML IV ONE (01:02)
[2025-01-16] MEDS: ACETAMINOPHEN *IV* 1,000 MG in IV 1 EA IV ONE (01:02)
[2025-01-16] MEDS: KETOROLAC 30 MG/ML 1 ML VIAL IV ONE (01:07)
[2025-01-16] MEDS: MAG SULF 1GM/100ML (MAG RUN) 1 GM in IV 1 EA IV ONE (01:07)
[2025-01-16 01:16] LABS: BASO # 0.0 10^3/uL (0.0-0.2); BASO % 0.3 % (0.0-1.0); EOS # 0.1 10^3/uL (0.0-0.5); EOS % 1.2 % (0.0-3.0); LYMPH # 4.1 10^3/uL (1.5-5.0); LYMPH % 35.8 % (24.0-44.0); MONO # 1.1 10^3/uL (0.0-0.8); MONO % 9.7 % (2.0-8.0); NEUTROPHILS # 6.1 10^3/uL (1.5-8.5); NEUTROPHILS % 52.8 % (36.0-66.0); PLATELET COUNT, AUTOMATED 368 10^3/uL (150-450)
[2025-01-16 01:37] LABS: CALCIUM LEVEL 8.8 MG/DL (8.5-10.1); CARBON DIOXIDE LEVEL 25 MMOL/L (20-31); CHLORIDE LEVEL 101 MMOL/L (98-107); CK-MB VALUE MASS 2.1 NG/ML (<3.6); CREATININE FOR GFR 0.80 MG/DL (0.55-1.30); GLOMERULAR FILTRATION RATE > 90.0 (>58); POTASSIUM SERUM 4.5 MMOL/L (3.5-5.1); SODIUM LEVEL 137 MMOL/L (136-145)
[2025-01-16 01:39] LABS: CPK CREATINE PHOSPHOKINASE 123 U/L (34-145); MB/CK RELATIVE INDEX 1.70 (< OR =4)
[2025-01-16 04:55] VITALS: BP 141/86; TEMP 96.4; O2SAT 100
== END 2025-01-16 04:55 | disposition home or self-care (01) ==
LOC: M ED 00:11
DX: I10 Essential (primary) hypertension (principal); R51.9 Headache, unspecified; E11.9 Type 2 diabetes mellitus without complications; K21.9 Gastro-esophageal reflux disease without esophagitis; E78.5 Hyperlipidemia, unspecified; Z88.8 Allergy status to other drugs, medicaments and biological substances; Z91.013 Allergy to seafood; Z79.1 Long term (current) use of non-steroidal anti-inflammatories (NSAID); Z79.4 Long term (current) use of insulin; Z79.899 Other long term (current) drug therapy
CPT/HCPCS: 36415; 70450; 71045; 80048; 82550; 82553; 84484; 85025; 93005; 96365; 96375; 99284; J0131; J1885; J3475